=== PATIENT | male | born 1955 | race Caucasian/White ===

== ENCOUNTER 2018-04-12 19:42 | Inpatient (IN) | payer MEDICARE, MEDICAID ==
[2018-04-12 20:14] LABS: % BASOPHILS 0.6 % (0.0-2.0); BASOPHILE ABSOLUTE 0.1 Th/cumm (0-0.2); EOSINOPHILE ABSOLUTE 0.1 Th/cmm (0.1-0.4); LYMPHOCYTE ABSOLUTE 0.7 Th/cmm (1.5-3.0); MONOCYTE ABSOLUTE 0.4 Th/cmm (0.3-1.0); RED BLOOD COUNT 3.07 Mil/cmm (4.30-5.70)
[2018-04-12 20:17] LABS: % LYMPHOCYTES 7.8 % (20.0-50.0); % MONOCYTES 4.3 % (2.0-10.0); % NEUTROPHILS 86.3 % (40.0-80.0); HEMATOCRIT 28.3 % (41.0-60); HEMOGLOBIN 9.4 gm/dL (12-16); MEAN CELL VOLUME 92.2 fl (80-99); MEAN CORPUSCULAR HEMOGLOBIN 30.5 pg (26.0-30.0); MEAN CORPUSCULAR HGB CONC 33.1 pg (28.0-36.0); MEAN PLATELET VOLUME 6.3 fl; NEUTROPHILE ABSOLUTE 8.3 Th/cmm (1.8-8.0); PLATELET COUNT 330 Th/cmm (150-400); RED CELL DISTRIBUTION WIDTH 15.7 % (11.5-20.0); WHITE BLOOD COUNT 9.6 Th/cmm (4.8-10.8)
[2018-04-12 20:29] LABS: ALB/GLOB RATIO 1.2 (1.0-1.8); ALBUMIN 3.7 gm/dL (4.2-5.5); ALKALINE PHOSPHATASE 85 U/L (34-104); ANION GAP 12.4 (7.0-16.0); BILIRUBIN,TOTAL 0.7 mg/dL (0.3-1.0); BUN - UREA NITROGEN 12 mg/dL (7-25); CALCIUM SERUM 9.4 mg/dL (8.6-10.3); CARBON DIOXIDE 28.7 mEq/L (21.0-31.0); CHLORIDE 103 mEq/L (98-107); CREATININE - SERUM 0.6 mg/dL (0.7-1.3); GFR AFRICAN-AMERICAN > 60.0 ml/min (>90); GFR NON AFRICAN-AMERICAN > 60.0 ml/min; GLUCOSE 218 mg/dL (70-105); POTASSIUM SERUM 3.1 mEq/L (3.5-5.1); SGOT 26 U/L (13-39); SGPT/ALT 64 U/L (7-52); SODIUM SERUM 141 mEq/L (136-145); TOTAL PROTEIN,SERUM 6.8 gm/dL (6.0-8.3)
[2018-04-12] MEDS ORDERED: Potassium Chloride 20 mEq ER Tab PO ONE ×2 (20:37→20:39)
[2018-04-12 20:50] LABS: CHOLESTEROL 185 mg/dL (<200); HDL -HIGH DENSITY LIPOPROTEIN 45 mg/dL (23-92); TRIGLYCERIDES 165 mg/dL (<150)
[2018-04-12 22:39] VITALS: BP 124/78
[2018-04-12] MEDS ORDERED: Maalox 30 mL Cup PO PRN (22:41)
[2018-04-12] MEDS ORDERED: Magnesium Hydroxide (MOM) 30 mL UDC PO PRN (22:41)
[2018-04-12] MEDS ORDERED: Acetaminophen 500 MG TAB PO PRN (22:44)
[2018-04-12] MEDS ORDERED: Non-Formulary Item 1 EA (Docusate Sodium [Docusate Sodium] 100 MG) PO SCH (22:45)
[2018-04-12] MEDS: Theophylline 100 mg ER Tab PO SCH (23:45)
[2018-04-13] MEDS: Albuterol/Ipratropium Neb 3 ML AERS HHN SCH ×4 (01:06→19:19)
--- NOTE | 2018-04-13 02:28 | ED Physician Chart ---
ED Chief Complaint/HPI - Patient Information Date Seen:: 04/12/18 Time Seen:: 19:45 Chief Complaint:: Agitation History of Present Illness:: onset x 2 days of agitation and aggressive behavior; no report of trauma, H/As, SIs, S/T, neck pain, C/P, SOB, Abd. Pain, A/N/V/D/C, fever, chills, or urinary s /s Allergies:: Allergies Allergy/AdvReac Type Severity Reaction Status Date / Time morphine Allergy Verified 04/12/18 19:45 Penicillins [PCN] Allergy Verified 04/12/18 19:45 Vitals:: Vital Signs - 8 hr 04/12/18 04/12/18 19:45 20:57 Temp 97.7 F 98.3 F HR 85 89 RR 15 18 BP 133/80 127/65 O2 Sat % 93 94 Historian:: Patient, EMS Review:: Nurse's Note Reviewed, Old Chart Reviewed, EMS run form Reviewed ED Review of Systems - Review of Systems General/Constitutional: No fever, No chills, No weight loss, No weakness, No diaphoresis, No edema, No loss of appetite Skin: No skin lesions, No rash, No bruising Head: No headache, No light-headedness Eyes: No loss of vision, No pain, No diplopia ENT: No earache, No nasal drainage, No sore throat, No tinnitus Neck: No neck pain, No swelling, No thyromegaly, No stiffness, No mass noted Cardio Vascular: No chest pain, No palpitations, No PND, No orthopnea, No edema Pulmonary: SOB, No cough, No sputum, Wheezing GI: No nausea, No vomiting, No diarrhea, No pain, No melena, No hematochezia, No constipation, No hematemesis G/U: No dysuria, No frequency, No hematuria, No nacturia Musculoskeletal: No bone or joint pain, No back pain, No muscle pain Endocrine: No polyuria, No polydipsia Psychiatric: Prior psych history, Depression, Anxiety, No suicidal ideation, No homicidal ideation, No auditory hallucination, No visual hallucination Hematopoietic: No bruising, No lymphadenopathy Allergic/Immuno: No urticaria, No angioedema Neurological: No syncope, No focal symptoms, No weakness, No paresthesia, No headache, No seizure, No dizziness, No confusion, No vertigo ED Past Medical History - Past Medical History Obtainable: Yes Past Medical History: HTN, DM, Asthma/COPD, DVT/PE, Dyslipidemia, Thyroid disorder Family History: HTN Social History: Non Smoker, No Alcohol, No Drug Use, Single, Care Facility Surgical History: None Psychiatricy History: Depression, Bipolar Medication: Reviewed Family Medical History - Family Member Mother History Unknown: Yes ED Physical Exam - Physical Examination General/Constitutional: Awake, Well-developed, well-nourished, Alert, No distress, GCS 15, Non-toxic appearing, Ambulatory Head: Atraumatic Eyes: Lids, conjuctiva normal, PERRL, EOMI Skin: Nl inspection, No rash, No skin lesions, No ecchymosis, Well hydrated, No lymphadenopathy ENMT: External ears, nose nl, TM canals nl, Nasal exam nl, Lips, teeth, gums nl , Oropharynx nl, Tonsils nl Neck: Nontender, Full ROM w/o pain, No JVD, No nuchal rigidity, No bruit, No mass, No stridor Respiratory: Nl effort/Exclusion, Clear to Auscultation, No Wheeze/Rhonchi/Rales Cardio Vascular: RRR, No murmur, gallop, rubs, NL S1 S2, Carotid/Femoral/Distal pulses equal bilaterally GI: No tenderness/rebounding/guarding, No organomegaly, No hernia, Normal BS's, Nondistended, No mass/bruits, No McBurney tenderness : No CVA tenderness Extremities: No tenderness or effusion, Full ROM, normal strength in all extremities, No edema, Normal digits & nails Neuro/Psych: Alert/oriented, DTR's symmetric, Normal sensory exam, Normal motor strength, Judgement/insight normal, Mood normal, Normal gait, No focal deficits Other Neuro/Psych comments:: + Psychomotor Agitation; no SIs; Mood/Affect: Labile Misc: Normal back, No paraspinal tenderness ED Labs/Radiology/EKG Results - Lab Results Results: Laboratory Tests 04/12/18 04/12/18 04/12/18 20:05 20:05 20:05 WBC 9.6 RBC 3.07 L Hgb 9.4 L Hct 28.3 L MCV 92.2 MCH 30.5 H MCHC Differential 33.1 RDW 15.7 Plt Count 330 MPV 6.3 Neutrophils % 86.3 H Lymphocytes % 7.8 L Monocytes % 4.3 Eosinophils % 1.0 Basophils % 0.6 Sodium 141 Potassium 3.1 L Chloride 103 Carbon Dioxide 28.7 Anion Gap 12.4 BUN 12 Creatinine 0.6 L Est GFR ( Amer) > 60.0 Est GFR (Non-Af Amer) > 60.0 BUN/Creatinine Ratio 20.0 Glucose 218 H Calcium 9.4 Total Bilirubin 0.7 AST 26 ALT 64 H Alkaline Phosphatase 85 Total Protein 6.8 Albumin 3.7 L Globulin 3.1 Albumin/Globulin Ratio 1.2 Triglycerides Cholesterol LDL Cholesterol Direct HDL Cholesterol TSH 6.62 H 04/12/18 20:05 WBC RBC Hgb Hct MCV MCH MCHC Differential RDW Plt Count MPV Neutrophils % Lymphocytes % Monocytes % Eosinophils % Basophils % Sodium Potassium Chloride Carbon Dioxide Anion Gap BUN Creatinine Est GFR ( Amer) Est GFR (Non-Af Amer) BUN/Creatinine Ratio Glucose Calcium Total Bilirubin AST ALT Alkaline Phosphatase Total Protein Albumin Globulin Albumin/Globulin Ratio Triglycerides 165 H Cholesterol 185 LDL Cholesterol Direct 111 HDL Cholesterol 45 TSH Comments:: Reviewed - EKG Interpretations EKG Time:: 20:11 Rate & Rhythm: 80; NSR Comments:: non-specific st-t changes ED Septic Shock - . Is Septic Shock (SBP<90, OR Lactate>4 mmol\L) present?: No - <6hrs of presentation: Vital Signs: Vital Signs - 8 hr 04/12/18 04/12/18 19:45 20:57 Temp 97.7 F 98.3 F HR 85 89 RR 15 18 BP 133/80 127/65 O2 Sat % 93 94 ED Reassessment (Disposition) - Reassessment Reassessment Condition:: Improved - Diagnosis Diagnosis:: Agitation; Medical Clearance; Hypokalemia; Bipolar Disorder - Aftercare/Follow up Instructions Aftercare/Follow-Up Instructions:: Counseled pt regarding lab results/diagnosis & need follow up, Counseled pt & family regarding lab results/diagnosis & need follow up - Patient Disposition Discharge/Transfer:: Acute Care w/in this hosp Admitted to:: [facility] Condition at Disposition:: Stable, Improved
[2018-04-13] MEDS: INSULIN ASPART SLIDING SCALE 100 UNITS/ML UNIT SUBQ SCH ×4 (06:38→22:00)
[2018-04-13] MEDS: Levothyroxine 0.075 Mg Tab PO SCH (06:49)
[2018-04-13] MEDS: Budesonide 0.5 Mg/2 mL Ud HHN SCH ×3 (07:01→19:34)
[2018-04-13] MEDS ORDERED: INSULIN ASPART, RECOMBINANT 100 UNITS/ML SUBQ SCH (07:30)
--- NOTE | 2018-04-13 08:42 | Diagnostic Imaging Report ---
CHEST X-RAY: AP view INDICATION: Shortness of breath COMPARISON: None FINDINGS: Exam is limited due to positioning. There is accentuation of the interstitial lung markings. There is no focal consolidation or pleural effusions . There may have been postsurgical changes of the right hilar region. Mild cardiomegaly is noted. Degenerative changes of the spine are noted. There is postsurgical changes of the distal left clavicle. IMPRESSION: Accentuation of the interstitial lung markings, no focal consolidation identified. Mild cardiomegaly. Possible postsurgical changes of the right hilar region, correlate clinically.
[2018-04-13] MEDS ORDERED: HYDROCORTISONE 25 MG PO SCH (09:00)
[2018-04-13] MEDS ORDERED: Insulin Detemir 100 units/mL 10mL Vial SUBQ SCH (09:00)
[2018-04-13] MEDS: Insulin Detemir 100 units/mL 10mL Vial SUBQ SCH (09:08)
[2018-04-13] MEDS: Multivitamin Tab PO SCH (09:14)
[2018-04-13] MEDS: Theophylline 100 mg ER Tab PO SCH ×2 (11:16→22:49)
[2018-04-13] MEDS: Non-Formulary Item 1 EA (Apixaban [Eliquis] 5 MG) PO SCH ×2 (11:47→17:43)
--- NOTE | 2018-04-13 13:49 | History & Physical ---
ADMIT DATE: 04/13/2018 PATIENT'S IDENTIFICATION: A 62-year-old male. CHIEF COMPLAINT: "Who are you." HISTORY OF PRESENT ILLNESS: A 62-year-old male transferred from [facility] for further care for his underlying psychotic illness. The patient has complex medical problems, which include diabetes mellitus, chronic pain syndrome, chronic back injury, which required T10-T11 laminectomy. Post procedure, the patient had complicated course, which required acute care followed by a long-term acute care hospitalization. During the stay at the [facility], the patient was noted to have significant amount of altered mental status and behavioral disorder. The patient was also noted to have hypothyroidism with myxedema coma where the patient was appropriately treated and the patient was followed by the behavioral consultant and it was noted that the [facility] The patient is transferred yesterday. PAST MEDICAL HISTORY: Remarkable for: 1. Diabetes. 2. Hypertension. 3. Obesity. 4. Obstructive sleep apnea. 5. Chronic pain syndrome. 6. Hypothyroidism. 7. DJD. 8. Status post T10-T11 laminectomy. MEDICATIONS AT HOME: At home, Tylenol, Maalox, DuoNeb nebulizer, Pulmicort, Colace, Cortef, sliding scale insulin, Levemir, levothyroxine, lorazepam, milk of magnesia, multivitamin, Seroquel, Randy-Dur, tramadol, Ambien. ALLERGIES: The patient is allergic to MORPHINE and PENICILLIN. SOCIAL HISTORY: Prior to this hospitalization, he was living with his mother. The patient has a remote history of smoking cigarette, but no alcohol or drug use. FAMILY HISTORY: Remarkable for psychotic disorder, diabetes, and hypertension. REVIEW OF SYSTEMS: I am unable to get meaningful history from the patient at this time. PHYSICAL EXAMINATION: GENERAL: The patient is alert, awake, follows command, lying in the bed without any acute distress. VITAL SIGNS: Temperature 97.2, pulse 79, respiratory rate 18, blood pressure 149/80. HEENT: Normocephalic, atraumatic. Extraocular muscles are intact. Tongue was pink and coated. Poor dentition noted. No oral lesion. No exudate. No sinus tenderness. NECK: Supple, no JVD, no hepatojugular reflex. No lymphadenopathy, thyromegaly, or carotid bruit. HEART: Both heart sounds are regular. No S3, no S4. CHEST AND LUNGS: Equal in expansion, no expiratory wheezing. ABDOMEN: Soft, no guarding, no rigidity. Liver and spleen are palpable. No palpable mass. EXTREMITIES: No edema, no cyanosis. Peripheral pulses +2. No calf tenderness. NEUROLOGIC: Alert, awake, follows command. No facial asymmetry. Decreased power throughout the upper and lower extremity. BACK: Unremarkable. A well-healed surgical scar on the lumbar area noted. AVAILABLE DIAGNOSTIC DATA: Has been reviewed. CLINICAL IMPRESSIONS: 1. Psychotic disorder. 2. Hypothyroidism. 3. Diabetes mellitus. 4. Obesity. 5. Chronic pain syndrome. 6. Degenerative joint disease. 7. Debility. 8. Anemia of inflammation. 9. High risk for fall. PLAN: Psychotic evaluation and management deferred to psychiatrist. The patient's heart rate is around 80. I will discontinue Randy-Dur for now. Continue to provide other medication as patient was receiving for underlying problem. Gradually, we will wean off the patient's Cortef as well. I do not see any indications for continuation of the long-term Cortef. Monitor the blood sugar along with other medication as patient receiving, sliding scale insulin as well, fall precaution as well, have followup with Neurology and wire drawing machine tender as well since the patient was followed by them at [facility] as well. We will continue to follow this patient during the stay in the hospital. JOB# [id number]
--- NOTE | 2018-04-13 23:19 | Progress Notes ---
DATE: 04/13/2018 SUBJECTIVE: The patient is currently in the hospital. Psychogenic polydipsia, voices. The patient with ongoing voices, psychotic symptoms, mostly keeps himself, suspicious, paranoid, calm, quiet, notes the voices are ongoing, ongoing concerns about impulsivity, concerns that he may continue to drink copious amounts of water, placing himself at risk. Tolerant to treatment thus far. Currently on Risperdal 3 mg daily and Wellbutrin as well. ASSESSMENT: The patient with ongoing psychotic symptoms, voices, concerns regarding his impulse control. PLAN: We will continue to monitor. I will be increasing his dosing of Risperdal today. Medications were reviewed including dosages and frequencies. JOB# [id number]
[2018-04-14] MEDS: Albuterol/Ipratropium Neb 3 ML AERS HHN SCH ×4 (00:12→21:53)
[2018-04-14] MEDS: INSULIN ASPART SLIDING SCALE 100 UNITS/ML UNIT SUBQ SCH ×4 (06:30→21:21)
[2018-04-14] MEDS: Levothyroxine 0.075 Mg Tab PO SCH (06:46)
[2018-04-14] MEDS: Budesonide 0.5 Mg/2 mL Ud HHN SCH ×2 (06:49→21:53)
--- NOTE | 2018-04-14 07:14 | Psychiatric Evaluation ---
DATE OF SERVICE: 04/13/2018 HISTORY OF PRESENT ILLNESS: A 62-year-old male well known to this clinician, sent by this clinician from [facility] in the [facility] due to progressive agitation and need for restraints, aggressive behaviors, could not be controlled at that particular setting. On [id number], the patient is AO to name only. He believes he is in [place]. He believes the year is 1940 or something, does not know the month. Very poor historian, not answering most questions. Mood "okay." Calm currently. PAST PSYCHIATRIC HISTORY: Depression. Concerns for mood disorder. FAMILY HISTORY: Noncontributory. MEDICAL PROBLEMS: Noted hypertension, asthma, COPD, diabetes, DVT, dyslipidemia, thyroid disorder. SOCIAL HISTORY: The patient states he was born in [place], not currently . Unclear if he has any children. No current alcohol, drugs or tobacco. MEDICATIONS: Noted including dosages and frequencies. MENTAL STATUS EXAMINATION: Stated age, unkempt. Very poor historian. Mood "okay." Poorly oriented, no overt SI or HI, unclear psychotic symptoms, very poor impulse control and poor insight and judgment. PROVISIONAL DIAGNOSES: Mood, unspecified; anxiety, unspecified; psychosis, unspecified; strong rule out bipolar affective disorder; concerns about chronic encephalopathy versus possible dementia process. Under medical please see full H and P. ESTIMATED LENGTH OF STAY: 7-10 days. ASSESSMENT: The patient is currently in the hospital, could not be cared for at a lower level of care, symptomatic, agitated, requiring restraints. PLAN: We will continue to monitor, titrate and adjust medications. I will be increasing his dosing of Seroquel. JOB# [id number]
[2018-04-14] MEDS: Multivitamin Tab PO SCH (10:03)
[2018-04-14] MEDS: Insulin Detemir 100 units/mL 10mL Vial SUBQ SCH (11:06)
[2018-04-14] MEDS: Theophylline 100 mg ER Tab PO SCH ×2 (14:07→22:34)
[2018-04-14] MEDS: Docusate Sodium 100 mg/10 mL UD PO SCH (16:15)
--- NOTE | 2018-04-14 23:21 | Progress Notes ---
DATE: 04/14/2018 SUBJECTIVE: The patient in the hospital, disrobing, making himself naked, stating "she is houses away, she is 2 houses away," not making any sense, crying, yelling for mom. Staff noting they are having a hard time controlling him, ongoing behavioral disturbances. The patient is confused on exam, disoriented, disengage. Medications were noted. ASSESSMENT: The patient remains symptomatic, bizarre, psychotic, confused, and behavioral disturbances. PLAN: I will be increasing his dosing of Seroquel at this time. Given ongoing symptoms, he is not safe for a lower level of care given the severity of his current symptoms. [facility]# [id number]
[2018-04-15] MEDS: Albuterol/Ipratropium Neb 3 ML AERS HHN SCH ×4 (01:35→19:21)
[2018-04-15] MEDS: Levothyroxine 0.075 Mg Tab PO SCH (06:40)
[2018-04-15] MEDS: INSULIN ASPART SLIDING SCALE 100 UNITS/ML UNIT SUBQ SCH ×4 (06:46→22:30)
--- NOTE | 2018-04-15 08:50 | Progress Notes ---
DATE: IDENTIFICATION: A 62-year-old male. SUBJECTIVE: The patient seen and examined. The patient is currently lying in the bed. No new event. MRSA isolation is negative. Blood sugars are under acceptable range. The patient is cooperative. PHYSICAL EXAMINATION: VITAL SIGNS: Temperature 97.8, pulse 99, respiratory rate is 20, blood pressure 134/85. HEENT: No facial asymmetry. NECK: Supple, no JVD. HEART: Regular. CHEST AND LUNGS: Equal in expansion with no expiratory wheezing. ABDOMEN: Soft. No guarding or rigidity. Bowel sounds present. No palpable mass. EXTREMITIES: No edema. CLINICAL IMPRESSION: 1. Psychotic disorder. 2. Hypothyroidism. 3. Diabetes. 4. Obesity. 5. Chronic pain. 6. Degenerative joint disease. 7. Debility. 8. Status post extubation. 9. Anemia of inflammation. 10. High risk for fall. 11. Pulmonary embolism by V/Q scan. PLAN: 1. Monitor blood sugar. 2. Blood pressure. 3. Anticoagulation therapy. 4. Pain management. 5. Synthroid. 6. General nursing care. 7. Follow lab. 8. Follow consult recommendation. 9. Care plan reviewed and discussed with staff. JOB# [id number]
[2018-04-15] MEDS: Budesonide 0.5 Mg/2 mL Ud HHN SCH ×2 (08:54→19:21)
[2018-04-15] MEDS: Multivitamin Tab PO SCH ×2 (08:57→09:13)
[2018-04-15] MEDS: Docusate Sodium 100 mg/10 mL UD PO SCH ×3 (08:57→16:12)
[2018-04-15] MEDS: Theophylline 100 mg ER Tab PO SCH ×3 (09:03→22:46)
[2018-04-15] MEDS: Insulin Detemir 100 units/mL 10mL Vial SUBQ SCH (09:14)
--- NOTE | 2018-04-15 18:28 | Progress Notes ---
DATE: 04/15/2018 The patient remains unruly, still symptomatic, disrobing, doing on things, seems to be tolerating Seroquel, very confused, disoriented. Staff noting that he still yells calling for his mom, irritable, still with ongoing symptoms, very confused. ASSESSMENT: The patient is confused, disoriented, calling out for his mother, trying to disrobe, not safe for a lower level of care. PLAN: We will continue to monitor. Given recent dose increase of Seroquel, will continue at current dosing. JOB# [id number]
[2018-04-16] MEDS: Albuterol/Ipratropium Neb 3 ML AERS HHN SCH ×4 (00:54→19:37)
[2018-04-16] MEDS: Levothyroxine 0.075 Mg Tab PO SCH (06:44)
[2018-04-16] MEDS: Multivitamin Tab PO SCH (09:24)
[2018-04-16] MEDS: Docusate Sodium 100 mg/10 mL UD PO SCH ×2 (09:25→17:21)
[2018-04-16] MEDS: Budesonide 0.5 Mg/2 mL Ud HHN SCH ×2 (09:36→21:01)
[2018-04-16] MEDS: Theophylline 100 mg ER Tab PO SCH ×2 (12:04→22:23)
[2018-04-16] MEDS: Insulin Detemir 100 units/mL 10mL Vial SUBQ SCH (12:04)
[2018-04-16] MEDS: INSULIN ASPART SLIDING SCALE 100 UNITS/ML UNIT SUBQ SCH ×3 (12:04→21:15)
--- NOTE | 2018-04-16 21:22 | Progress Notes ---
DATE: 04/16/2018 SUBJECTIVE: The patient is currently in the hospital, yelling "mom, mom, mom." Asking for cigarettes, does not know where he is or what is going on. Very disoriented, confused. Still at times disrobing, needing a higher level of prompting, redirection, intermittently wakes up at night, calling out different names. ASSESSMENT: The patient is confused, disoriented, not making any sense, still unruly. PLAN: Medications were noted. I will be increasing his dosing of Seroquel today. Still not able to be cared for at a lower level of care given his ongoing and severe symptoms. JOB# [id number]
[2018-04-17] MEDS: Albuterol/Ipratropium Neb 3 ML AERS HHN SCH ×4 (01:19→19:14)
[2018-04-17] MEDS: Budesonide 0.5 Mg/2 mL Ud HHN SCH ×2 (06:27→19:14)
[2018-04-17] MEDS: Levothyroxine 0.075 Mg Tab PO SCH (06:32)
[2018-04-17] MEDS: INSULIN ASPART SLIDING SCALE 100 UNITS/ML UNIT SUBQ SCH ×4 (06:34→21:00)
[2018-04-17] MEDS: Multivitamin Tab PO SCH (08:50)
[2018-04-17] MEDS: Docusate Sodium 100 mg/10 mL UD PO SCH ×2 (08:52→17:16)
[2018-04-17] MEDS: Insulin Detemir 100 units/mL 10mL Vial SUBQ SCH (08:53)
--- NOTE | 2018-04-17 09:50 | Progress Notes ---
DATE: PATIENT'S IDENTIFICATION: A 62-year-old male. SUBJECTIVE: The patient seen and examined. The patient is compliant with his medication. The patient resting comfortably, easy to awake. The patient gets confused at time. The patient denies any chest pain or increasing shortness of breath or palpitation. PHYSICAL EXAMINATION: VITAL SIGNS: On today's exam, temperature 98.6, pulse 95, respiratory rate is 14, blood pressure 116/69. HEENT: No facial asymmetry. NECK: Supple, no JVD. HEART: Regular. CHEST AND LUNGS: Equal in expansion, no expiratory wheezing. ABDOMEN: Soft. No guarding or rigidity. Bowel sounds present. No palpable mass. EXTREMITIES: No edema. CLINICAL IMPRESSION: 1. Psychotic disorder. 2. Diabetes. 3. Hypothyroidism. 4. Degenerative joint disease. 5. Status post T10-T11 laminectomy. 6. Bronchospasm, better. 7. Debility. 8. Decline in self-care. PLAN: 1. Cut down the Cortef dose. 2. Continue Synthroid. 3. Monitor blood sugar and blood pressure. 4. General nursing care. 5. Nutritional support. 6. Follow lab. 7. Fall precaution. 8. Care plan reviewed and discussed with staff. JOB# [id number]
[2018-04-17] MEDS: Theophylline 100 mg ER Tab PO SCH ×2 (10:46→23:00)
--- NOTE | 2018-04-17 18:30 | Progress Notes ---
DATE: 04/17/2018 SUBJECTIVE: The patient seen, chart reviewed, discussed with staff. The patient remains unruly, some resistance to care, sometimes tries to be low, he yells out "mom, mom, mom." Very confused, disoriented disengaged, fair sleep, special forces specialist awakenings, requiring prompting, redirections, very disoriented. Medications were noted. ASSESSMENT: The patient remains symptomatic, ongoing symptoms, disorientation. PLAN: We will continue to monitor. Consider titration of Seroquel. We will continue inpatient management. JOB# [id number]
[2018-04-18] MEDS: Albuterol/Ipratropium Neb 3 ML AERS HHN SCH ×4 (01:46→18:57)
[2018-04-18] MEDS: Albuterol/Ipratropium Neb 3 ML AERS HHN PRN (05:19)
[2018-04-18] MEDS: Levothyroxine 0.075 Mg Tab PO SCH (06:32)
[2018-04-18] MEDS: INSULIN ASPART SLIDING SCALE 100 UNITS/ML UNIT SUBQ SCH ×4 (06:33→20:22)
[2018-04-18] MEDS: Budesonide 0.5 Mg/2 mL Ud HHN SCH ×2 (07:15→18:57)
[2018-04-18] MEDS: Docusate Sodium 100 mg/10 mL UD PO SCH ×2 (09:29→17:08)
[2018-04-18] MEDS: Insulin Detemir 100 units/mL 10mL Vial SUBQ SCH (09:36)
[2018-04-18] MEDS: Multivitamin Tab PO SCH (09:59)
--- NOTE | 2018-04-18 15:39 | Progress Notes ---
DATE: IDENTIFICATION: A 62-year-old male. SUBJECTIVE: The patient seen and examined. The patient lying in the bed. Still having agitation at times. The patient is taking all his medication. The patient currently does provide a meaningful history. PHYSICAL EXAMINATION: VITAL SIGNS: Temperature 98.3, pulse 92, respiratory rate 18, and blood pressure 124/78. HEENT: No facial asymmetry. NECK: Supple, no JVD. HEART: Regular. CHEST AND LUNGS: Equal in expansion, no expiratory wheezing. ABDOMEN: Soft. EXTREMITIES: No edema. CLINICAL IMPRESSION: 1. Hypothyroidism. 2. Diabetes. 3. Psychotic disorder. 4. Degenerative joint disease. 5. Status post T10-T11 laminectomy. 6. History of pulmonary embolism. PLAN: The patient at this time to get followup lab. Monitor blood sugar and blood pressures. Continue other medication as prescribed. The patient is currently on Randy-Dur, we will discontinue it considering the patient's heart rates are within normal limit. The patient will have followup TSH as well. Psychotic evaluation and management deferred to psychiatrist. We will continue to follow this patient during the stay at the [facility]. JOB# [id number]
--- NOTE | 2018-04-18 23:16 | Progress Notes ---
DATE: 04/18/2018 SUBJECTIVE: The patient is still yelling, screaming, calling everyone his mother, in a Shayla chair, bizarre, not making any sense, very confused. Apparently, daughter may be a temporary conservator. The patient too confused, disoriented, has no idea what is going on. ASSESSMENT: The patient unruly, unpredictable, yelling out mom, mom, mom and trying to get out of Shayla chair. PLAN: We will continue to monitor. Medications were noted. I will be increasing dosing of Seroquel today. JOB# [id number]
[2018-04-19] MEDS: Albuterol/Ipratropium Neb 3 ML AERS HHN SCH ×4 (00:47→19:42)
[2018-04-19] MEDS: Levothyroxine 0.075 Mg Tab PO SCH (06:34)
[2018-04-19] MEDS: INSULIN ASPART SLIDING SCALE 100 UNITS/ML UNIT SUBQ SCH ×4 (06:35→20:55)
[2018-04-19] MEDS: Budesonide 0.5 Mg/2 mL Ud HHN SCH ×2 (08:02→19:58)
[2018-04-19 08:48] LABS: % EOSINOPHILS 2.5 % (0.0-5.0); % LYMPHOCYTES 25.4 % (20.0-50.0); % MONOCYTES 5.3 % (2.0-10.0); % NEUTROPHILS 66.8 % (40.0-80.0); EOSINOPHILE ABSOLUTE 0.2 Th/cmm (0.1-0.4); HEMATOCRIT 32.3 % (41.0-60); HEMOGLOBIN 11.1 gm/dL (12-16); LYMPHOCYTE ABSOLUTE 1.5 Th/cmm (1.5-3.0); MEAN CELL VOLUME 92.7 fl (80-99); MEAN CORPUSCULAR HEMOGLOBIN 31.9 pg (26.0-30.0); MEAN CORPUSCULAR HGB CONC 34.4 pg (28.0-36.0); MEAN PLATELET VOLUME 7.2 fl; MONOCYTE ABSOLUTE 0.3 Th/cmm (0.3-1.0); NEUTROPHILE ABSOLUTE 4.1 Th/cmm (1.8-8.0); PLATELET COUNT 342 Th/cmm (150-400); RED BLOOD COUNT 3.48 Mil/cmm (4.30-5.70); RED CELL DISTRIBUTION WIDTH 16.3 % (11.5-20.0); WHITE BLOOD COUNT 6.1 Th/cmm (4.8-10.8)
[2018-04-19 09:00] LABS: ALB/GLOB RATIO 1.2 (1.0-1.8); ALBUMIN 4.1 gm/dL (4.2-5.5); ALKALINE PHOSPHATASE 73 U/L (34-104); ANION GAP 11.8 (7.0-16.0); BUN - UREA NITROGEN 14 mg/dL (7-25); CALCIUM SERUM 10.1 mg/dL (8.6-10.3); CARBON DIOXIDE 30.2 mEq/L (21.0-31.0); CHLORIDE 104 mEq/L (98-107); CREATININE - SERUM 0.6 mg/dL (0.7-1.3); GFR AFRICAN-AMERICAN > 60.0 ml/min (>90); GFR NON AFRICAN-AMERICAN > 60.0 ml/min; GLUCOSE 134 mg/dL (70-105); SGOT 14 U/L (13-39); SGPT/ALT 32 U/L (7-52); SODIUM SERUM 143 mEq/L (136-145); TOTAL PROTEIN,SERUM 7.5 gm/dL (6.0-8.3)
[2018-04-19] MEDS: Insulin Detemir 100 units/mL 10mL Vial SUBQ SCH (09:14)
[2018-04-19] MEDS: Multivitamin Tab PO SCH (09:17)
[2018-04-19] MEDS: Docusate Sodium 100 mg/10 mL UD PO SCH ×2 (09:19→17:52)
[2018-04-19] MEDS ORDERED: Potassium Chloride 20 mEq ER Tab PO ONE (11:12)
--- NOTE | 2018-04-19 21:52 | Progress Notes ---
DATE: 04/19/2018 The patient claiming that nurses are ____ can be yelling, screaming, trying to disrobe, in a Shayla chair, very unruly, argumentative, difficult to redirect him. The patient highly impulsive, highly unpredictable taking his medications, tolerant to medications thus far. ASSESSMENT: The patient remains symptomatic, unruly, highly impulsive, highly unpredictable. PLAN: We will continue to monitor, titrate and adjust medications. The patient is not safe for a lower level of care at this time. JOB# [id number]
[2018-04-20] MEDS: Albuterol/Ipratropium Neb 3 ML AERS HHN SCH ×4 (01:55→19:39)
[2018-04-20] MEDS: INSULIN ASPART SLIDING SCALE 100 UNITS/ML UNIT SUBQ SCH ×5 (06:30→21:20)
[2018-04-20] MEDS: Levothyroxine 0.075 Mg Tab PO SCH (06:31)
[2018-04-20] MEDS: Budesonide 0.5 Mg/2 mL Ud HHN SCH ×2 (06:46→19:54)
[2018-04-20] MEDS: Multivitamin Tab PO SCH (08:53)
[2018-04-20] MEDS: Insulin Detemir 100 units/mL 10mL Vial SUBQ SCH (10:35)
[2018-04-20] MEDS: Docusate Sodium 100 mg/10 mL UD PO SCH ×2 (12:37→18:33)
--- NOTE | 2018-04-20 23:22 | Progress Notes ---
DATE: SUBJECTIVE: The patient seen, chart reviewed, discussed with staff, yelling, screaming, agitated in the Shayla chair, very confused. Staff noting he has been difficult to redirect, difficult to control, highly unruly. He is taking his medications. No overt side effects. ASSESSMENT: The patient remains symptomatic, ongoing behaviors, unruly, difficult to control and redirect, confused, disoriented, screaming for his mother. We will adjust medications. Add Depakote as well. JOB# [id number]
--- NOTE | 2018-04-20 23:32 | Progress Notes ---
DATE: 04/20/2018 IDENTIFICATION: A 62-year-old male. SUBJECTIVE: The patient seen and examined. The patient is lying in the bed. The patient is alert, awake, getting confused and get agitated at the time. The patient did receive potassium of 40 yesterday. PHYSICAL EXAMINATION: VITAL SIGNS: Temperature 97.8, pulse is 80, respiratory rate is 18, blood pressure is 136/74. HEENT: No facial asymmetry. NECK: Supple, no JVD. HEART: Regular. CHEST: Lung equal in expansion, no expiratory wheezing. ABDOMEN: Soft, no guarding or rigidity. Liver, spleen palpable. No palpable mass. EXTREMITIES: No edema. NEUROLOGIC: Alert, awake, follows command. AVAILABLE LABORATORY DATA: TSH is elevated. CLINICAL IMPRESSION: 1. Hypothyroidism. 2. Pulmonary embolism. 3. Psychotic disorder. 4. Diabetes mellitus. 5. Hypertension. 6. Degenerative joint disease. 7. Debility. 8. Status post T10-T11 laminectomy. PLAN: 1. Increased Synthroid 175 mcg. 2. Follow up lab. 3. Monitor blood sugar and blood placement. 4. Psych medication. 5. Psych followup. 6. General nursing care. 7. Follow lab. 8. Fall precautions. 9. PT, OT. 10. Care plan reviewed and discussed. JOB# [id number]
[2018-04-21] MEDS: Albuterol/Ipratropium Neb 3 ML AERS HHN SCH ×4 (01:11→19:27)
[2018-04-21 06:30] LABS: % BASOPHILS 0.5 % (0.0-2.0); % EOSINOPHILS 4.2 % (0.0-5.0); % LYMPHOCYTES 29.4 % (20.0-50.0); % MONOCYTES 7.6 % (2.0-10.0); % NEUTROPHILS 58.3 % (40.0-80.0); EOSINOPHILE ABSOLUTE 0.2 Th/cmm (0.1-0.4); HEMATOCRIT 30.6 % (41.0-60); HEMOGLOBIN 10.2 gm/dL (12-16); LYMPHOCYTE ABSOLUTE 1.3 Th/cmm (1.5-3.0); MEAN CELL VOLUME 93.6 fl (80-99); MEAN CORPUSCULAR HEMOGLOBIN 31.1 pg (26.0-30.0); MEAN CORPUSCULAR HGB CONC 33.2 pg (28.0-36.0); MEAN PLATELET VOLUME 6.8 fl; MONOCYTE ABSOLUTE 0.3 Th/cmm (0.3-1.0); NEUTROPHILE ABSOLUTE 2.7 Th/cmm (1.8-8.0); PLATELET COUNT 302 Th/cmm (150-400); RED BLOOD COUNT 3.27 Mil/cmm (4.30-5.70); RED CELL DISTRIBUTION WIDTH 16.7 % (11.5-20.0); WHITE BLOOD COUNT 4.5 Th/cmm (4.8-10.8)
[2018-04-21] MEDS: INSULIN ASPART SLIDING SCALE 100 UNITS/ML UNIT SUBQ SCH ×4 (06:35→20:31)
--- NOTE | 2018-04-21 06:45 | Progress Notes ---
DATE: 04/21/2018 SUBJECTIVE: The patient seen, chart reviewed, discussed with staff. The patient was seen today 04/21/2018. Still yelling, screaming, calling out for his mom, asking me to bring him 2 cups of coffee, very hard to redirect, this a lot at times needs to be in a Shayla chair due to unruly behavior, is difficult to redirect, very confused, disoriented. ASSESSMENT: The patient remains symptomatic, unruly, difficult to redirect, unable to be cared for at a lower level of care given his ongoing behaviors. PLAN: We will continue to monitor. I will be titrating his dosing of Seroquel today. JOB# [id number]
[2018-04-21] MEDS: Budesonide 0.5 Mg/2 mL Ud HHN SCH ×2 (07:05→19:27)
[2018-04-21 07:22] LABS: ALB/GLOB RATIO 1.3 (1.0-1.8); ALBUMIN 3.6 gm/dL (4.2-5.5); ALKALINE PHOSPHATASE 71 U/L (34-104); ANION GAP 8.6 (7.0-16.0); BILIRUBIN,TOTAL 0.8 mg/dL (0.3-1.0); BUN - UREA NITROGEN 13 mg/dL (7-25); CALCIUM SERUM 9.3 mg/dL (8.6-10.3); CARBON DIOXIDE 29.7 mEq/L (21.0-31.0); CHLORIDE 107 mEq/L (98-107); CREATININE - SERUM 1.1 mg/dL (0.7-1.3); GFR AFRICAN-AMERICAN > 60.0 ml/min (>90); GFR NON AFRICAN-AMERICAN > 60.0 ml/min; GLUCOSE 98 mg/dL (70-105); MAGNESIUM 2.3 mg/dL (1.9-2.7); POTASSIUM SERUM 3.3 mEq/L (3.5-5.1); SGOT 15 U/L (13-39); SGPT/ALT 23 U/L (7-52); SODIUM SERUM 142 mEq/L (136-145); TOTAL PROTEIN,SERUM 6.4 gm/dL (6.0-8.3)
[2018-04-21] MEDS ORDERED: Levothyroxine 0.1 Mg Tab PO SCH (07:30)
[2018-04-21] MEDS ORDERED: Levothyroxine 0.075 Mg Tab PO SCH (07:30)
[2018-04-21] MEDS: Docusate Sodium 100 mg/10 mL UD PO SCH ×2 (09:03→16:23)
[2018-04-21] MEDS: Multivitamin Tab PO SCH (09:07)
[2018-04-21] MEDS: Insulin Detemir 100 units/mL 10mL Vial SUBQ SCH (09:55)
[2018-04-22] MEDS: Albuterol/Ipratropium Neb 3 ML AERS HHN SCH ×4 (00:45→20:18)
[2018-04-22] MEDS: INSULIN ASPART SLIDING SCALE 100 UNITS/ML UNIT SUBQ SCH ×4 (06:49→21:02)
[2018-04-22] MEDS: Budesonide 0.5 Mg/2 mL Ud HHN SCH ×2 (07:38→20:18)
[2018-04-22] MEDS: Docusate Sodium 100 mg/10 mL UD PO SCH ×2 (08:20→18:07)
[2018-04-22] MEDS: Multivitamin Tab PO SCH (08:21)
[2018-04-22] MEDS: Insulin Detemir 100 units/mL 10mL Vial SUBQ SCH (10:58)
--- NOTE | 2018-04-23 | Progress Notes ---
DATE: 04/22/2018 PATIENT'S ID: A 62-year-old male. SUBJECTIVE: The patient was seen and examined. The patient is lying in the bed. The patient has a period of agitation at times. Otherwise, the patient is eating and cooperative. PHYSICAL EXAMINATION: VITAL SIGNS: Temperature 97.7, pulse 89, respiratory rate 18, and blood pressure 146/54. HEENT: No facial asymmetry. NECK: Supple, no JVD. HEART: Regular. CHEST AND LUNGS: Equal in expansion, no expiratory wheezing. ABDOMEN: Soft. No guarding, no rigidity. Bowel sounds present. No palpable mass. EXTREMITIES: No edema. AVAILABLE DIAGNOSTIC DATA: None for my review. CLINICAL IMPRESSION: 1. Diabetes mellitus. 2. Hypothyroidism. 3. Chronic pain syndrome. 4. Status post T10-T11 laminectomy. 5. Psychotic disorder. 6. Obesity. 7. Decline in self-care and mobility. PLAN: 1. Continue to provide Synthroid. 2. Diabetes management. 3. PT, OT. 4. Psych medication. 5. Psych followup. 6. General nursing care. 7. We will continue to follow this patient during the stay in the hospital. JOB# [id number]
[2018-04-23] MEDS: Albuterol/Ipratropium Neb 3 ML AERS HHN SCH ×4 (00:13→19:01)
[2018-04-23] MEDS: INSULIN ASPART SLIDING SCALE 100 UNITS/ML UNIT SUBQ SCH ×4 (06:41→20:30)
[2018-04-23] MEDS: Budesonide 0.5 Mg/2 mL Ud HHN SCH ×2 (06:44→19:01)
[2018-04-23] MEDS: Multivitamin Tab PO SCH (09:33)
[2018-04-23] MEDS: Insulin Detemir 100 units/mL 10mL Vial SUBQ SCH (09:33)
[2018-04-23] MEDS: Docusate Sodium 100 mg/10 mL UD PO SCH ×2 (09:33→16:40)
--- NOTE | 2018-04-23 09:59 | Progress Notes ---
DATE: SUBJECTIVE: The patient was seen and evaluated. The patient's chart reviewed. Dr. Roa covering for Dr. Baeza. IDENTIFYING DATA: A 62-year-old male who was brought in here from [facility] secondary to progressive agitated, restraints in aggressive behavior that cannot be controlled in particular setting. Today on mtzl-wf-vbst evaluation, the patient continues to perseverate that he has a lot of back pain and also continues to perseverate yelling and screaming that he needs his mother and screaming for his mother that he questions another person that worries his mother and reported he has a lot of pain on his back. Nurses overnight observed that he continues to have a lot of irritability, agitation. Yelling, screaming, and calling out for his mom asking her to bring to cough even though mom does not live here. CURRENT MEDICATIONS: Depakote 125 b.i.d., Colace, Ativan as needed, Seroquel 500 mg a day. ASSESSMENT AND PLAN: A 62-year-old male who continues to be irritable, easily agitated, and demanding his mother to be present, believes that his mother lives in the unit. The patient is 62-year-old male, unable to formulate a safe plan outside of structure environment. We will continue with the current medication regimen as recently adjusted. JOB# [id number]
--- NOTE | 2018-04-23 19:41 | Progress Notes ---
DATE: 04/23/2018 SUBJECTIVE: The patient is seen and evaluated. The patient's chart reviewed. No acute events reported overnight. Covering for Dr. Baeza. Today on wogo-cx-ddaz evaluation, the patient continues to perseverate. He has a lot of back pain concerns to perseverate about his mother being in the unit. MENTAL STATUS EXAMINATION: Continues to be easily agitated, irritable, and needing a lot of redirection. ASSESSMENT AND PLAN: Continues to be irritable, agitated, needing a lot of redirections. We will continue with the recent titration of the Seroquel to target the patient's ongoing impulsive behavior. JOB# [id number]
[2018-04-24] MEDS: Albuterol/Ipratropium Neb 3 ML AERS HHN SCH ×4 (01:01→20:49)
[2018-04-24] MEDS: INSULIN ASPART SLIDING SCALE 100 UNITS/ML UNIT SUBQ SCH ×4 (07:09→20:44)
[2018-04-24] MEDS: Budesonide 0.5 Mg/2 mL Ud HHN SCH ×2 (07:19→20:50)
--- NOTE | 2018-04-24 08:11 | Progress Notes ---
DATE: Covering for Dr. Baeza. Today on qqxl-ww-ieiu evaluation, the patient continues to be easily irritable, agitated. On klus-xi-xsfg evaluation, the patient reported his daughter is trapped in another room, he needs to call and rescue her. ASSESSMENT AND PLAN: The patient is a 62-year-old male who continues to present irritable, agitated and delusional, believing that his daughter is trapped. We will continue with Seroquel 100 mg to target the patient severe disorganized state. JOB# [id number]
[2018-04-24] MEDS: Docusate Sodium 100 mg/10 mL UD PO SCH (09:20)
[2018-04-24] MEDS: Multivitamin Tab PO SCH (09:20)
[2018-04-24] MEDS: Insulin Detemir 100 units/mL 10mL Vial SUBQ SCH (12:06)
--- NOTE | 2018-04-24 12:50 | Progress Notes ---
DATE: PATIENT'S IDENTIFICATION: A 62-year-old male. SUBJECTIVE: The patient is seen and examined. The patient is lying in the bed. The patient has a period of agitation and aggressive behavior. The patient required isolation at times. OBJECTIVE: VITAL SIGNS: Temperature 97.6, pulse is 82, respiratory rate 18, blood pressure 160/85. HEENT: No facial asymmetry. NECK: Supple. No JVD. HEART: Regular. CHEST AND LUNGS: Equal in expansion with no expiratory wheezing. ABDOMEN: Soft. No guarding. No rigidity. Liver and spleen are not palpable. No palpable mass. EXTREMITIES: No edema. NEUROLOGIC: Alert, awake, follows commands. AVAILABLE DIAGNOSTIC DATA: None for my review. CLINICAL IMPRESSIONS: 1. Diabetes mellitus. 2. Hypothyroidism. 3. Psychotic disorder. 4. Obesity. 5. Chronic pain syndrome. 6. High risk for fall. 7. Degenerative joint disease. 8. Status post T10-T11 laminectomy. PLAN: 1. Pain management. 2. Psych medication. 3. Psych followup. 4. Diabetes management. 5. Synthroid. 6. Fall precaution. 7. Nutritional support. 8. We will continue to follow this patient during the stay in the hospital. JOB# [id number]
[2018-04-25] MEDS: Albuterol/Ipratropium Neb 3 ML AERS HHN SCH ×4 (01:45→19:50)
[2018-04-25] MEDS: INSULIN ASPART SLIDING SCALE 100 UNITS/ML UNIT SUBQ SCH ×4 (06:38→20:43)
[2018-04-25] MEDS: Budesonide 0.5 Mg/2 mL Ud HHN SCH (07:40)
[2018-04-25] MEDS: Insulin Detemir 100 units/mL 10mL Vial SUBQ SCH (09:19)
[2018-04-25] MEDS: Docusate Sodium 100 mg/10 mL UD PO SCH ×2 (09:20→17:31)
[2018-04-25] MEDS: Multivitamin Tab PO SCH (09:20)
--- NOTE | 2018-04-25 22:50 | Progress Notes ---
DATE: 04/25/2018 SUBJECTIVE: Chart reviewed and the patient interviewed. Also discussed the patient's condition with the staff and reviewed records and labs. The patient is still forgetful and is still suspicious and confused. The patient is still asking about where in his house and his mother. The patient also still has episodes of yelling and screaming and still has severe mood swings. Otherwise, the patient is compliant with taking his medications with no side effects. ASSESSMENT: The patient is still psychotic and needs close monitoring. TREATMENT PLAN: Continue to monitor his behavior and his condition and continue adjusting psychotropic medications and followup. JOB# [id number]
[2018-04-26] MEDS: Albuterol/Ipratropium Neb 3 ML AERS HHN SCH ×4 (01:00→19:21)
[2018-04-26] MEDS: INSULIN ASPART SLIDING SCALE 100 UNITS/ML UNIT SUBQ SCH ×4 (06:38→21:00)
[2018-04-26] MEDS: Budesonide 0.5 Mg/2 mL Ud HHN SCH ×2 (07:27→19:21)
[2018-04-26] MEDS: Multivitamin Tab PO SCH (09:05)
[2018-04-26] MEDS: Docusate Sodium 100 mg/10 mL UD PO SCH ×2 (09:08→18:00)
[2018-04-26] MEDS: Insulin Detemir 100 units/mL 10mL Vial SUBQ SCH (09:13)
--- NOTE | 2018-04-26 22:22 | Progress Notes ---
DATE: 04/26/2018 SUBJECTIVE: The patient remains loud, forgetful, yelling, screaming, poor impulsivity, poor impulse control, concerns that he may have pseudobulbar affect, given a little efficacy with Seroquel dosing as well as Depakote. The patient is still in a Shayla chair, trying to get up, still yelling "doctor, doctor, doctor, calls for his mom." ASSESSMENT: The patient remains asymptomatic, ongoing concerns about impulsivity, loud, unable to place him in current condition. PLAN: We will continue to monitor. I will be starting Nuedexta, increase dose of Seroquel. JOB# [id number]
[2018-04-27] MEDS: Albuterol/Ipratropium Neb 3 ML AERS HHN SCH ×4 (00:20→18:33)
[2018-04-27] MEDS: INSULIN ASPART SLIDING SCALE 100 UNITS/ML UNIT SUBQ SCH ×4 (07:01→20:46)
[2018-04-27] MEDS: Budesonide 0.5 Mg/2 mL Ud HHN SCH ×2 (07:19→18:44)
[2018-04-27] MEDS: Docusate Sodium 100 mg/10 mL UD PO SCH ×2 (09:01→16:45)
[2018-04-27] MEDS: Dextromethorphan/Quinidine 20mg/10mg Cap PO SCH (09:02)
[2018-04-27] MEDS: Multivitamin Tab PO SCH (09:02)
[2018-04-27] MEDS: Insulin Detemir 100 units/mL 10mL Vial SUBQ SCH (09:11)
--- NOTE | 2018-04-27 15:36 | Progress Notes ---
DATE: IDENTIFICATION: A 62-year-old male. SUBJECTIVE: The patient was seen and examined. OBJECTIVE: GENERAL: The patient is lying in the bed. No new event. VITAL SIGNS: Temperature 98.2, pulse 90, respiratory rate 18, and blood pressure 142/75. HEENT: No facial asymmetry. NECK: Supple, no JVD. HEART: Regular. CHEST: Lung equal in expansion, no expiratory wheezing. ABDOMEN: Soft. No guarding, no rigidity. Bowel sounds are present. No palpable mass. EXTREMITIES: No edema. AVAILABLE DIAGNOSTIC DATA: None for my review. Glucoscan is reviewed. Medication admission record is reviewed. CLINICAL IMPRESSION: 1. Diabetes. 2. Hypothyroidism. 3. Psychotic disorder. 4. Chronic pain. 5. Status post T10-T11 laminectomy. 6. Degenerative joint disease. 7. Obesity. 8. Debility. PLAN: 1. Synthroid 175 mcg. 2. Insulin sliding scale with Levemir insulin. 3. Psych medication. 4. General nursing care. 5. Fall precautions. 6. Nutritional support. 7. Follow lab. 8. Care plan reviewed and discussed with staff. JOB# [id number]
[2018-04-27] MEDS: QUEtiapine Fumarate 100 MG, QUEtiapine Fumarate 75 MG PO SCH (16:46)
--- NOTE | 2018-04-27 17:52 | Progress Notes ---
DATE: 04/27/2018 SUBJECTIVE: The patient remains combative, loud, yelling, still asking for his mom, mom, mom, yelling for his mother, nonsensical. Staff noting mild improvement and it seems the medications may be starting to help, calm him down, be somewhat more redirectable, still requiring a Shayla chair, unable placement at this time because of his behaviors, ____ his behaviors, confusional state. ASSESSMENT: The patient remains loud, agitated, screaming at times, confused, difficult to control his behaviors. I will be increasing his dosing of Seroquel today, good tolerance to Nuedexta thus far. JOB# [id number]
[2018-04-28] MEDS: Albuterol/Ipratropium Neb 3 ML AERS HHN SCH ×4 (01:20→19:03)
[2018-04-28] MEDS: INSULIN ASPART SLIDING SCALE 100 UNITS/ML UNIT SUBQ SCH ×4 (06:33→20:36)
[2018-04-28] MEDS: Budesonide 0.5 Mg/2 mL Ud HHN SCH ×2 (07:21→19:04)
[2018-04-28] MEDS: Docusate Sodium 100 mg/10 mL UD PO SCH ×2 (08:45→16:50)
[2018-04-28] MEDS: Dextromethorphan/Quinidine 20mg/10mg Cap PO SCH (08:45)
[2018-04-28] MEDS: QUEtiapine Fumarate 100 MG, QUEtiapine Fumarate 75 MG PO SCH ×2 (08:46→16:49)
[2018-04-28] MEDS: Multivitamin Tab PO SCH (08:46)
[2018-04-28] MEDS: Insulin Detemir 100 units/mL 10mL Vial SUBQ SCH (08:53)
[2018-04-29] MEDS: INSULIN ASPART SLIDING SCALE 100 UNITS/ML UNIT SUBQ SCH ×4 (06:45→21:14)
[2018-04-29] MEDS: Albuterol/Ipratropium Neb 3 ML AERS HHN SCH ×4 (08:31→19:48)
[2018-04-29] MEDS: Budesonide 0.5 Mg/2 mL Ud HHN SCH ×2 (08:31→19:48)
[2018-04-29] MEDS: Docusate Sodium 100 mg/10 mL UD PO SCH ×2 (08:41→16:14)
[2018-04-29] MEDS: QUEtiapine Fumarate 100 MG, QUEtiapine Fumarate 75 MG PO SCH ×2 (08:42→16:14)
[2018-04-29] MEDS: Multivitamin Tab PO SCH (08:42)
[2018-04-29] MEDS: Dextromethorphan/Quinidine 20mg/10mg Cap PO SCH (08:42)
[2018-04-29] MEDS: Insulin Detemir 100 units/mL 10mL Vial SUBQ SCH (09:03)
--- NOTE | 2018-04-29 12:32 | Progress Notes ---
DATE: 04/28/2018 SUBJECTIVE: A 62-year-old male still yelling, going on for his mom calling this clinician, Bryson, very confused, disoriented, screaming, yelling. Nursing staff noted mild improvement with the medications. We are continuing to titrate currently on dosing of Seroquel and Depakote, little improvement, not as aggressive or agitated, but yelling and screaming ____ a lot of the time and very confused and disoriented. Depakote level at 21.6 as of 04/25/2018. I will be increasing the dose, titrating Seroquel as well. JOB# [id number]
--- NOTE | 2018-04-29 18:46 | Progress Notes ---
DATE: 04/29/2018 The patient is still yelling, screaming, very agitated. Staff noting Ativan did help. The patient remains very unruly, still aggressive, yelling at the top of his lungs, difficult to redirect and control, very confused, currently withdrawn. ASSESSMENT: The patient remains symptomatic, unruly, agitated, very anxious, restless, requiring a near constant staff redirection and prompting. I will continue to monitor the patient closely. I will be continuing SerocesialMichelle. We will add Marilin. JOB# [id number]
[2018-04-30] MEDS: Albuterol/Ipratropium Neb 3 ML AERS HHN SCH ×2 (06:35→18:09)
[2018-04-30] MEDS: Budesonide 0.5 Mg/2 mL Ud HHN SCH ×2 (06:35→18:09)
[2018-04-30] MEDS: INSULIN ASPART SLIDING SCALE 100 UNITS/ML UNIT SUBQ SCH ×4 (06:50→21:14)
--- NOTE | 2018-04-30 07:35 | Progress Notes ---
DATE: 04/30/2018 The patient is still yelling, screaming, very poor sleep. We will be starting Klonopin today. He slept for about 2 hours, needs a higher level of the nurse attention, incontinent, for example, wears a diaper, very confused, does not know where he is, does not know what is going on, very psychotic, thoughts to himself, yells out "Bryson, Bryson, Bryson, mom, mom, mom." ASSESSMENT: Ongoing symptoms, severe symptoms, yelling, screaming, unable to place the patient at this time given his current agitation. PLAN: We will start Klonopin dosing, likely will need to titrate. JOB# [id number]
[2018-04-30] MEDS: Insulin Detemir 100 units/mL 10mL Vial SUBQ SCH (08:53)
[2018-04-30] MEDS: Docusate Sodium 100 mg/10 mL UD PO SCH ×2 (08:54→17:04)
[2018-04-30] MEDS: QUEtiapine Fumarate 100 MG, QUEtiapine Fumarate 75 MG PO SCH ×2 (08:54→17:04)
[2018-04-30] MEDS: Multivitamin Tab PO SCH (08:55)
[2018-04-30] MEDS: Dextromethorphan/Quinidine 20mg/10mg Cap PO SCH (08:55)
[2018-05-01] MEDS: Albuterol/Ipratropium Neb 3 ML AERS HHN SCH ×4 (00:24→19:21)
--- NOTE | 2018-05-01 06:00 | Progress Notes ---
DATE: 04/30/2018 IDENTIFICATION: A 62-year-old male. SUBJECTIVE: The patient seen and examined. The patient is lying in the bed. No new event; still has a fluctuating mental status. OBJECTIVE: VITAL SIGNS: Temperature 97.8, pulse 94, respiratory rate 18, blood pressure is 123/76. Medication admission record is reviewed. HEENT: No facial asymmetry. NECK: Supple, no JVD. HEART: Regular. CHEST AND LUNGS: Equal in expansion, no expiratory wheezing. ABDOMEN: Soft. No guarding or rigidity. Bowel sounds present. No palpable mass. EXTREMITIES: No edema. NEUROLOGIC: Fluctuating mental status noted. CLINICAL IMPRESSION: 1. Diabetes mellitus with low blood sugar. 2. Hypothyroidism. 3. Psychotic disorder. 4. Degenerative joint disease. 5. Status post T10-T11 laminectomy. PLAN: 1. Decrease Levemir to 12 units. 2. Continue to monitor blood sugar. 3. Fall precaution. 4. Nutritional support. 5. General nursing care. 6. Follow lab. 7. Care plan reviewed and discussed with staff. JOB# [id number]
[2018-05-01] MEDS: Budesonide 0.5 Mg/2 mL Ud HHN SCH ×2 (06:31→19:21)
[2018-05-01] MEDS: INSULIN ASPART SLIDING SCALE 100 UNITS/ML UNIT SUBQ SCH ×3 (06:41→21:00)
[2018-05-01] MEDS: Docusate Sodium 100 mg/10 mL UD PO SCH ×2 (08:21→17:52)
[2018-05-01] MEDS: Dextromethorphan/Quinidine 20mg/10mg Cap PO SCH (08:22)
[2018-05-01] MEDS: QUEtiapine Fumarate 100 MG, QUEtiapine Fumarate 75 MG PO SCH ×2 (08:22→17:53)
[2018-05-01] MEDS: Multivitamin Tab PO SCH (08:24)
[2018-05-01] MEDS: Insulin Detemir 100 units/mL 10mL Vial SUBQ SCH (09:30)
--- NOTE | 2018-05-01 17:28 | Progress Notes ---
DATE: 05/01/2018 SUBJECTIVE: The patient is currently in the hospital due to yelling and screaming. He is calmer today, not so much yelling, not so much screaming. Remains confused and disoriented. He seems a lot more comfortable. He also slept better yesterday. He is very confused, disoriented. ASSESSMENT: The patient is calmer, seems to be showing some signs of improvement. We will continue to monitor to see if there is any consistency in his current behaviors. PLAN: We will continue to monitor, continue current dosing of medications. JOB# [id number]
[2018-05-02] MEDS: Albuterol/Ipratropium Neb 3 ML AERS HHN SCH ×4 (00:49→19:31)
[2018-05-02] MEDS: INSULIN ASPART SLIDING SCALE 100 UNITS/ML UNIT SUBQ SCH ×4 (06:57→20:34)
[2018-05-02] MEDS: Budesonide 0.5 Mg/2 mL Ud HHN SCH ×2 (07:50→19:31)
[2018-05-02] MEDS: Dextromethorphan/Quinidine 20mg/10mg Cap PO SCH (10:00)
[2018-05-02] MEDS: Multivitamin Tab PO SCH (10:00)
[2018-05-02] MEDS: QUEtiapine Fumarate 100 MG, QUEtiapine Fumarate 75 MG PO SCH ×2 (10:00→16:55)
[2018-05-02] MEDS: Insulin Detemir 100 units/mL 10mL Vial SUBQ SCH (10:00)
[2018-05-02] MEDS: Docusate Sodium 100 mg/10 mL UD PO SCH ×2 (10:00→16:55)
--- NOTE | 2018-05-02 16:35 | Progress Notes ---
DATE: 05/02/2018 SUBJECTIVE: A 62-year-old male significantly calmer on exam. No longer with yelling episodes as much, screaming a lot less, resting more comfortably, more relaxed, still with episodes of yelling out, but far less, still noted to be restless at times. Medications were noted. The patient really at this point has nowhere to go. Because of his behaviors, we have not been able to place, but he is showing signs of improvement. We will attempt to have reevaluation for disposition planning. ASSESSMENT: The patient remains symptomatic. Episodes of verbal outbursts. I will be in his dosing of Seroquel. Continue Klonopin. JOB# [id number]
[2018-05-03] MEDS: Albuterol/Ipratropium Neb 3 ML AERS HHN SCH ×4 (00:06→19:26)
--- NOTE | 2018-05-03 02:13 | Progress Notes ---
DATE: IDENTIFICATION: A 62-year-old male. SUBJECTIVE: The patient seen and examined. The patient is lying in the bed, follows command, gets confused at that time, the patient remained hemodynamically stable. PHYSICAL EXAMINATION: VITAL SIGNS: Temperature 97.8, pulse is 92, respiratory rate is 16, blood pressure 124/73. Glucoscan has been reviewed. HEENT: No facial asymmetry. NECK: Supple, no JVD. HEART: Regular. CHEST AND LUNGS: Equal in expansion. No expiratory wheezing. ABDOMEN: Soft. EXTREMITIES: No edema. CLINICAL IMPRESSION: 1. Diabetes mellitus. 2. Hypothyroidism. 3. Psychotic disorder. 4. Status post T10-T11 laminectomy. 5. Degenerative joint disease. 6. High risk for fall. 7. Chronic pain syndrome. PLAN: 1. Monitor blood sugar, blood pressure. 2. Synthroid. 3. Diabetes management. 4. Psych medication and psych followup. 5. Fall precautions. 6. Nutritional supplement. 7. Care plan reviewed. JOB# [id number]
[2018-05-03] MEDS: INSULIN ASPART SLIDING SCALE 100 UNITS/ML UNIT SUBQ SCH ×4 (06:31→20:54)
[2018-05-03] MEDS: Budesonide 0.5 Mg/2 mL Ud HHN SCH ×2 (07:08→19:36)
[2018-05-03] MEDS: QUEtiapine Fumarate 100 MG, QUEtiapine Fumarate 75 MG PO SCH ×2 (09:49→17:48)
[2018-05-03] MEDS: Docusate Sodium 100 mg/10 mL UD PO SCH ×2 (09:49→17:48)
[2018-05-03] MEDS: Dextromethorphan/Quinidine 20mg/10mg Cap PO SCH (09:49)
[2018-05-03] MEDS: Multivitamin Tab PO SCH (09:49)
[2018-05-03] MEDS: Insulin Detemir 100 units/mL 10mL Vial SUBQ SCH (10:00)
[2018-05-04] MEDS: Albuterol/Ipratropium Neb 3 ML AERS HHN SCH ×4 (01:19→19:31)
--- NOTE | 2018-05-04 02:49 | Progress Notes ---
DATE: 05/03/2018 SUBJECTIVE: The patient is significantly calmer, still with some yelling episodes, screaming episodes, very confused, disoriented. This has not changed, but he is no longer screaming as much, much calmer appearing, no longer in as much distress. Some over sedation noted. Staff holding Klonopin if not needed, we will switch to p.r.n. I also decreased his dosing of Seroquel. ASSESSMENT: The patient is showing signs of improvement. Concerns for over sedation. PLAN: We will continue to monitor, switch Klonopin to p.r.n. dosing. The patient has nowhere to go at this time, currently gravely disabled. We are actively trying to find him a place to go. JOB# [id number]
[2018-05-04] MEDS: INSULIN ASPART SLIDING SCALE 100 UNITS/ML UNIT SUBQ SCH ×4 (06:44→21:04)
[2018-05-04] MEDS: Budesonide 0.5 Mg/2 mL Ud HHN SCH (07:24)
[2018-05-04] MEDS: Multivitamin Tab PO SCH (09:22)
[2018-05-04] MEDS: Docusate Sodium 100 mg/10 mL UD PO SCH ×2 (09:22→16:41)
[2018-05-04] MEDS: Dextromethorphan/Quinidine 20mg/10mg Cap PO SCH (09:22)
[2018-05-04] MEDS: QUEtiapine Fumarate 100 MG, QUEtiapine Fumarate 75 MG PO SCH ×2 (09:23→16:41)
[2018-05-04] MEDS: Insulin Detemir 100 units/mL 10mL Vial SUBQ SCH (09:25)
--- NOTE | 2018-05-04 23:28 | Progress Notes ---
DATE: 05/04/[address] Baeza. Case was discussed with staff of the patient, reviewed records. The patient is reported to be calmer with episodes of yelling and screaming episodes. Continues to be confused, the screaming, has calmed down a little bit. He is not as much distressed. He is somewhat over sedated at times, so the staff has been holding the Klonopin. He is showing signs of improvement. He is sleeping better, eating better and we will continue the patient in group therapy, milieu therapy, adjust medication as needed. JOB# [id number]
[2018-05-05] MEDS: Albuterol/Ipratropium Neb 3 ML AERS HHN SCH ×4 (01:26→19:51)
[2018-05-05] MEDS: INSULIN ASPART SLIDING SCALE 100 UNITS/ML UNIT SUBQ SCH ×4 (06:36→21:07)
[2018-05-05] MEDS: Budesonide 0.5 Mg/2 mL Ud HHN SCH ×2 (06:58→19:51)
[2018-05-05] MEDS: Multivitamin Tab PO SCH (09:19)
[2018-05-05] MEDS: Dextromethorphan/Quinidine 20mg/10mg Cap PO SCH (09:22)
[2018-05-05] MEDS: QUEtiapine Fumarate 100 MG, QUEtiapine Fumarate 75 MG PO SCH ×2 (09:22→16:26)
[2018-05-05] MEDS: Docusate Sodium 100 mg/10 mL UD PO SCH (10:42)
[2018-05-05] MEDS: Insulin Detemir 100 units/mL 10mL Vial SUBQ SCH (10:42)
--- NOTE | 2018-05-05 14:28 | Progress Notes ---
DATE: 05/05/2018 SUBJECTIVE: Case was discussed with staff of the patient, reviewed records. The patient ____ episodes of yelling and screaming, confused, unable to make safe plan for self-care, though his episodes of agitation are not as prominent. He is sleeping better, eating better. No side effects of the medication, no sedation, no nausea, no extrapyramidal symptoms. We will continue the patient in group therapy, milieu therapy, and adjust medications as needed. JOB# [id number]
[2018-05-06] MEDS: INSULIN ASPART SLIDING SCALE 100 UNITS/ML UNIT SUBQ SCH ×4 (06:39→20:26)
[2018-05-06] MEDS: Budesonide 0.5 Mg/2 mL Ud HHN SCH ×2 (07:37→19:50)
[2018-05-06] MEDS: Albuterol/Ipratropium Neb 3 ML AERS HHN SCH ×3 (07:37→19:48)
[2018-05-06] MEDS: Dextromethorphan/Quinidine 20mg/10mg Cap PO SCH (08:52)
[2018-05-06] MEDS: Insulin Detemir 100 units/mL 10mL Vial SUBQ SCH (08:52)
[2018-05-06] MEDS: Docusate Sodium 100 mg/10 mL UD PO SCH ×2 (08:52→17:41)
[2018-05-06] MEDS: QUEtiapine Fumarate 100 MG, QUEtiapine Fumarate 75 MG PO SCH ×2 (08:53→17:41)
[2018-05-06] MEDS: Multivitamin Tab PO SCH (08:53)
--- NOTE | 2018-05-06 22:52 | Progress Notes ---
DATE: SUBJECTIVE: The patient was seen and evaluated. The patient's chart reviewed. Covering for Dr. Lau. Overnight, the patient has continued to be sent, easily irritable, agitated. Today on cygp-nw-hmqd evaluation, the patient refusing to be interviewed and is mostly preoccupied about being discharged, but not amenable for conversation. MENTAL STATUS EXAMINATION: Observed to be still depressed. ASSESSMENT AND PLAN: The patient is a 62-year-old male with a history of opiate dependence, depression, who continues to have intermittent episodes of yelling, screaming, disoriented. We will continue with the current medication regimen, holding off the Klonopin to reduce sedation. JOB# [id number]
[2018-05-07] MEDS: Albuterol/Ipratropium Neb 3 ML AERS HHN SCH ×3 (01:41→12:34)
[2018-05-07] MEDS: INSULIN ASPART SLIDING SCALE 100 UNITS/ML UNIT SUBQ SCH ×3 (06:33→17:00)
[2018-05-07] MEDS: Budesonide 0.5 Mg/2 mL Ud HHN SCH ×2 (06:40→20:41)
[2018-05-07] MEDS: QUEtiapine Fumarate 100 MG, QUEtiapine Fumarate 75 MG PO SCH ×2 (09:10→17:59)
[2018-05-07] MEDS: Docusate Sodium 100 mg/10 mL UD PO SCH ×2 (09:11→18:00)
[2018-05-07] MEDS: Multivitamin Tab PO SCH (09:11)
[2018-05-07] MEDS: Dextromethorphan/Quinidine 20mg/10mg Cap PO SCH (09:11)
[2018-05-07] MEDS: Insulin Detemir 100 units/mL 10mL Vial SUBQ SCH (09:49)
--- NOTE | 2018-05-07 20:17 | General Progress Note ---
Subjective - Review of Systems Service Date: 05/07/18 Subjective: Patient seen and examined (covering for DR NICK) chart reviewed patient seems very confused congested Objective - Results Result Diagrams: 04/21/18 05:56 04/21/18 05:56 Recent Labs: Laboratory Last Values WBC 4.5 Th/cmm (4.8-10.8) L 04/21/18 05:56 RBC 3.27 Mil/cmm (4.30-5.70) L 04/21/18 05:56 Hgb 10.2 gm/dL (12-16) L 04/21/18 05:56 Hct 30.6 % (41.0-60) L 04/21/18 05:56 MCV 93.6 fl (80-99) 04/21/18 05:56 MCH 31.1 pg (26.0-30.0) H 04/21/18 05:56 MCHC Differential 33.2 pg (28.0-36.0) 04/21/18 05:56 RDW 16.7 % (11.5-20.0) 04/21/18 05:56 Plt Count 302 Th/cmm (150-400) 04/21/18 05:56 MPV 6.8 fl 04/21/18 05:56 Neutrophils % 58.3 % (40.0-80.0) 04/21/18 05:56 Lymphocytes % 29.4 % (20.0-50.0) 04/21/18 05:56 Monocytes % 7.6 % (2.0-10.0) 04/21/18 05:56 Eosinophils % 4.2 % (0.0-5.0) 04/21/18 05:56 Basophils % 0.5 % (0.0-2.0) 04/21/18 05:56 Sodium 142 mEq/L (136-145) 04/21/18 05:56 Potassium 3.3 mEq/L (3.5-5.1) L 04/21/18 05:56 Chloride 107 mEq/L (98-107) 04/21/18 05:56 Carbon Dioxide 29.7 mEq/L (21.0-31.0) 04/21/18 05:56 Anion Gap 8.6 (7.0-16.0) 04/21/18 05:56 BUN 13 mg/dL (7-25) 04/21/18 05:56 Creatinine 1.1 mg/dL (0.7-1.3) 04/21/18 05:56 Est GFR ( Amer) > 60.0 ml/min (>90) 04/21/18 05:56 Est GFR (Non-Af Amer) > 60.0 ml/min 04/21/18 05:56 BUN/Creatinine Ratio 11.8 04/21/18 05:56 Glucose 98 mg/dL (70-105) 04/21/18 05:56 POC Glucose 95 MG/DL (70 - 105) 04/29/18 16:35 Calcium 9.3 mg/dL (8.6-10.3) 04/21/18 05:56 Magnesium 2.3 mg/dL (1.9-2.7) 04/21/18 05:56 Total Bilirubin 0.8 mg/dL (0.3-1.0) 04/21/18 05:56 AST 15 U/L (13-39) 04/21/18 05:56 ALT 23 U/L (7-52) 04/21/18 05:56 Alkaline Phosphatase 71 U/L (34-104) 04/21/18 05:56 Total Protein 6.4 gm/dL (6.0-8.3) 04/21/18 05:56 Albumin 3.6 gm/dL (4.2-5.5) L 04/21/18 05:56 Globulin 2.8 gm/dL 04/21/18 05:56 Albumin/Globulin Ratio 1.3 (1.0-1.8) 04/21/18 05:56 Triglycerides 165 mg/dL (<150) H 04/12/18 20:05 Cholesterol 185 mg/dL (<200) 04/12/18 20:05 LDL Cholesterol Direct 111 mg/dL (75-193) 04/12/18 20:05 HDL Cholesterol 45 mg/dL (23-92) 04/12/18 20:05 TSH 13.42 uIU/ml (0.34-5.60) H 04/19/18 07:40 Valproic Acid 21.6 ug/mL (50.0-100.0) L 04/25/18 06:29 RPR NONREACTIVE (NONREACTIVE) 04/12/18 20:05 - Physical Exam Vitals and I&O: Vital Signs Temp 101.1 F 05/07/18 19:46 Pulse 110 05/07/18 19:46 Resp 18 05/07/18 19:46 BP 145/105 05/07/18 19:46 Pulse Ox 92 05/07/18 19:46 Intake & Output 05/07/18 05/07/18 05/08/18 06:59 18:59 06:59 Intake Total 240 1800 60 Output Total 1 Balance 239 1800 60 Intake: Oral 240 1800 60 Output: Urine/Stool Mix 1 Other: # Voids 3 3 2 # Bowel Movements 0 1 0 Active Medications: Current Medications Acetaminophen (Tylenol) 650 mg PO Q6HR PRN PRN Reason: Mild Pain 1-3 or Fever >101 Stop: 06/11/18 22:43 Al Hydrox/Mg Hydrox/Simethicone (Maalox) 30 ml PO Q4HR PRN PRN Reason: GI DISTRESS Stop: 06/11/18 22:40 Albuterol/Ipratropium (Duoneb Neb) 3 ml HHN Q2HR PRN PRN Reason: Shortness of Breath Stop: 06/11/18 22:43 Last Admin: 04/18/18 05:19 Dose: 3 ml Albuterol/Ipratropium (Duoneb Neb) 3 ml HHN Q6HRT [facility] Stop: 06/12/18 00:00 Last Admin: 05/07/18 12:34 Dose: 3 ml Budesonide (Pulmicort) 0.5 mg HHN BIDRT [facility] Stop: 06/16/18 18:59 Last Admin: 05/07/18 06:40 Dose: 0.5 mg Cephalexin Monohydrate (Keflex) 500 mg PO QID [facility] Stop: 07/07/18 08:59 Clonazepam (Klonopin) 0.5 mg PO BID PRN; Protocol PRN Reason: Agitation Stop: 07/02/18 21:59 Last Admin: 05/07/18 09:11 Dose: 0.5 mg Dextromethorphan/Quinidine (Nuedexta 20mg-10mg) 1 cap PO DAILY [facility] Stop: 06/26/18 08:59 Last Admin: 05/07/18 09:11 Dose: 1 cap Divalproex Sodium (Depakote Dr) 500 mg PO Q12HR [facility]; Protocol Stop: 06/27/18 20:59 Last Admin: 05/07/18 09:11 Dose: 500 mg Docusate Sodium (Colace) 100 mg PO BID [facility] Stop: 06/12/18 08:59 Last Admin: 05/07/18 18:00 Dose: Not Given Hydrocortisone (Cortef) 10 mg PO BID [facility] Stop: 06/16/18 16:59 Last Admin: 05/07/18 18:00 Dose: 10 mg Insulin Aspart (Novolog Insulin Sliding Scale) 0 units SUBQ ACHS [facility]; Protocol Stop: 06/12/18 07:29 Last Admin: 05/07/18 17:00 Dose: Not Given Insulin Detemir (Levemir Insulin) 12 units SUBQ DAILY [facility]; Protocol Stop: 06/30/18 08:59 Last Admin: 05/07/18 09:49 Dose: 12 units Levothyroxine Sodium 0.1 mg/ (Levothyroxine Sodium 0.075 mg) 0.175 mg PO QDAC [facility] Stop: 06/20/18 07:29 Last Admin: 05/07/18 06:33 Dose: 0.175 mg Magnesium Hydroxide (Milk Of Magnesia) 30 ml PO HS PRN PRN Reason: Constipation Multivitamins/Vitamin C (Theragran) 1 tab PO DAILY [facility] Stop: 06/12/18 08:59 Last Admin: 05/07/18 09:11 Dose: 1 tab Quetiapine Fumarate 100 mg/ (Quetiapine Fumarate 75 mg) 175 mg PO BID [facility] Stop: 06/26/18 16:59 Last Admin: 05/07/18 17:59 Dose: 175 mg Quetiapine Fumarate (Seroquel) 300 mg PO HS [facility] Stop: 07/01/18 20:59 Last Admin: 05/06/18 20:26 Dose: 300 mg General: No acute distress Cardiovascular: Regular rate Lungs: Other (rales bilaterally) Abdomen: Soft, no Tender Extremities: Other (left foot superficial wound with surrounding erythema noted) Assessment/Plan - Assessment Assessment: Left foot cellulitis Acute trachebronchitis Hypothyrodism Back pain Psych disorder - Plan Plan: Wound care Keflex Labs ordered Aspiration precaution Prn breathing treatment Plan of care discussed with nursing staff Nutritional Asmnt/Malnutr-PDOC - Dietary Evaluation Malnutrition Findings (Please click <Entered> for more info): Nutritional Asmnt/Malnutrition Start: 04/13/18 14: 06 Text: Status: Complete Freq: Protocol: Document 04/13/18 14:09 LIZSHEKHARG (Rec: 04/13/18 14:26 LIZMAURY [email or web address]) Nutritional Asmnt/Malnutrition Patient General Information Nutritional Screening High Risk Diagnosis psychosis Pertinent Medical Hx/Surgical Hx HTN, DM, asthma/COPD, DVT/PE, dyslipidemia, Thyroid diorder, ddpression, bipolar Subjective Information Pt seen resting in bed at time of visit, not answering RD greeting. Per nurse, pt consumed boaut 90% of breakfast and lunch today. Pt is able to eat by himself. Glucose 218 at admission noted . Diabetic education is not approriate at this time. Current Diet Order/ Nutrition Support pureed, 1800cal ADA Pertinent Medications colace, novolog, levemir, synthroid, theragran, seroquel Pertinent Labs 04/13 POC 116-165 04/12 K 3.1, Cr 0.6, glucose 218, alb 3.7 Nutritional Hx/Data Height 1.7 m Height (Calculated Centimeters) 170.2 Current Weight (lbs) 90.265 kg Weight (Calculated Kilograms) 90.3 Weight (Calculated Grams) 29166.9 [place] Body Weight 148 Body Mass Index (BMI) 31.1 Weight Status Approriate GI Symptoms GI Symptoms None Last BM not indicated Difficult in: None Skin Integrity/Comment: intact. old scar from laminectomy Current %PO Good (75-100%) Estimated Nutritional Goals BEE in Kcals: Adj wt of IBW Calories/Kcals/Kg 25-30 ajd wt 73kg Kcals Calculated 1801-7035 Protein: Adj wt of IBW Protein g/k-1.2 Protein Calculated 73-87 Fluid: ml 1825-2190ml (1ml/kcal) Nutritional Problem 1. Problem Problem altered nutrition related labs Etiology hx of DM, hyperglycemia Signs/Symptoms: glucose 218, POC 116-165 Malnutrition Alert Is there a minimum of two criteria No selected? Query Text:Check all the applicable criteria. A minimum of two criteria are recommended for diagnosis of either severe or non-severe malnutrition. Malnutrition Related to Morbid Obesity Malnutrition related to morbid obesity No Intervention/Recommendation Comments 1. Continue with pureed 1800 gopi ADA diet as ordered. Will attemp to discuss diabetic diet with pt at next visit. to adjust insulin regimen for optimal glycemic control. 2. Monitor PO intake, wt, labs and skin integrity 3. F/U as moderate risk in 3-5 days, 04/16-04/18 Expected Outcomes/Goals Expected Outcomes/Goals 1. PO intake to meet at least 75% of nutritional needs. 2. Wt stability, skin to remain intact, labs to approach WNL.
[2018-05-07] MEDS: Albuterol/Ipratropium Neb 3 ML AERS HHN PRN (20:40)
--- NOTE | 2018-05-07 21:30 | Progress Notes ---
DATE: 05/06/2018 Today on mdwr-od-qvzy evaluation, the patient is preoccupied about being discharged, disengaged, does not want to come to engage in conversation, withdrawn. MENTAL STATUS EXAMINATION: Withdrawn, disengaged, depressed, melancholic. ASSESSMENT AND PLAN: A 62-year-old male with a history of opiate dependence and depression with intermittent episodes of yelling, impulsive and unpredictable, unable to formulate a safe plan outside the structured environment. We will continue monitoring and evaluating and continue with primary psychiatrist's treatment plan and goals. JOB# [id number]
--- NOTE | 2018-05-08 10:25 | Diagnostic Imaging Report ---
Left foot (2 views) HISTORY: Pain, soft tissue swelling No acute abnormalities. No fractures. Joint spaces appear normal. Minimal spur formation seen off the plantar aspect of the posterior calcaneus. IMPRESSION: 1. No acute bony abnormalities 2. Minimal calcaneal spur formation
== END 2018-05-07 20:31 | disposition short-term general hospital (02) | DRG 885 ==
LOC: ER 19:42 → GERO 21:05
PROVIDERS: ADMIT Psychiatry & Neurology Psychiatry; ATTEND Psychiatry & Neurology Psychiatry
DX: F29 Unspecified psychosis not due to a substance or known physiological condition (principal); I26.99 Other pulmonary embolism without acute cor pulmonale; L03.116 Cellulitis of left lower limb; F39 Unspecified mood [affective] disorder; F41.9 Anxiety disorder, unspecified; M19.90 Unspecified osteoarthritis, unspecified site; D64.9 Anemia, unspecified; E03.9 Hypothyroidism, unspecified; I10 Essential (primary) hypertension; E11.9 Type 2 diabetes mellitus without complications; J44.9 Chronic obstructive pulmonary disease, unspecified; E78.5 Hyperlipidemia, unspecified; E87.6 Hypokalemia; F31.9 Bipolar disorder, unspecified; G89.4 Chronic pain syndrome; G47.33 Obstructive sleep apnea (adult) (pediatric); J20.9 Acute bronchitis, unspecified; Z88.5 Allergy status to narcotic agent; Z88.0 Allergy status to penicillin; Z86.718 Personal history of other venous thrombosis and embolism; Z68.31 Body mass index [BMI] 31.0-31.9, adult; Z82.49 Family history of ischemic heart disease and other diseases of the circulatory system; Z86.711 Personal history of pulmonary embolism; Z79.4 Long term (current) use of insulin; Z91.81 History of falling
CPT/HCPCS: 36415-UA; 71045-TC; 73620-TC-LT; 80053-TC; 80061-TC; 80164-TC; 82948-90; 83036-90; 83735-TC; 84443-TC; 85007-TC; 85025-TC; 86592-TC; 93005; 94640; 94760; 97530; J1815; J2185; J3370; X3904; Z7610

== ENCOUNTER 2018-05-07 21:10 | Inpatient (IN) | payer MEDICARE, BC ==
[~2018-05-07 21:10] MED LIST: Meropenem 500 MG in Sodium Chloride 0.9% 100 ML IV ONE
[2018-05-07] MEDS ORDERED: Albuterol/Ipratropium Neb 3 ML AERS HHN PRN (22:11)
[2018-05-07 23:29] LABS: HEMATOCRIT 38.1 % (41.0-60); HEMOGLOBIN 12.4 gm/dL (12-16); MEAN CELL VOLUME 92.1 fl (80-99); MEAN CORPUSCULAR HGB CONC 32.6 pg (28.0-36.0); MEAN PLATELET VOLUME 7.8 fl; PLATELET COUNT 326 Th/cmm (150-400); RED BLOOD COUNT 4.13 Mil/cmm (4.30-5.70); RED CELL DISTRIBUTION WIDTH 15.3 % (11.5-20.0); WHITE BLOOD COUNT 14.6 Th/cmm (4.8-10.8)
[2018-05-07 23:40] LABS: ANION GAP 13.5 (7.0-16.0); BUN - UREA NITROGEN 17 mg/dL (7-25); CALCIUM SERUM 9.2 mg/dL (8.6-10.3); CARBON DIOXIDE 29.2 mEq/L (21.0-31.0); CHLORIDE 102 mEq/L (98-107); CREATININE - SERUM 0.7 mg/dL (0.7-1.3); GFR AFRICAN-AMERICAN > 60.0 ml/min (>90); GFR NON AFRICAN-AMERICAN > 60.0 ml/min; GLUCOSE 197 mg/dL (70-105); POTASSIUM SERUM 3.7 mEq/L (3.5-5.1); SODIUM SERUM 141 mEq/L (136-145)
[2018-05-07 23:44] LABS: pH 7.45 (7.35-7.45)
[2018-05-07 23:45] LABS: ALLEN TEST pos
[2018-05-07 23:48] VITALS: BP 124/80
[2018-05-07 23:52] LABS: BAND NEUTROPHILE 2 % (0-10); LYMPHOCYTE 8 % (20-50); MONOCYTE 4 % (2-10); NEUTROPHILS 86 % (40-80); PLATELET ESTIMATE ADEQUATE (NORMAL)
[2018-05-08] MEDS ORDERED: Sodium Chloride 0.9% 1,000 ML IV SCH
[2018-05-08] MEDS: Meropenem 500 MG in Sodium Chloride 0.9% 100 ML IV SCH ×3 (00:16→16:04)
[2018-05-08] MEDS: Albuterol/Ipratropium Neb 3 ML AERS HHN SCH ×4 (00:30→19:49)
[2018-05-08] MEDS ORDERED: Albuterol/Ipratropium Neb 3 ML AERS HHN SCH ×2 (01:00)
[2018-05-08 02:15] LABS: INF A SCREEN NEG FOR INF A
[2018-05-08 02:16] LABS: INF B SCREEN NEG FOR INF B
[2018-05-08] MEDS: INSULIN ASPART SLIDING SCALE 100 UNITS/ML UNIT SUBQ SCH ×4 (06:34→21:45)
[2018-05-08 06:40] LABS: HEMOGLOBIN 10.9 gm/dL (12-16); MEAN CELL VOLUME 92.2 fl (80-99); MEAN CORPUSCULAR HEMOGLOBIN 30.9 pg (26.0-30.0); MEAN CORPUSCULAR HGB CONC 33.6 pg (28.0-36.0); MEAN PLATELET VOLUME 7.2 fl; PLATELET COUNT 277 Th/cmm (150-400); RED BLOOD COUNT 3.52 Mil/cmm (4.30-5.70); RED CELL DISTRIBUTION WIDTH 15.2 % (11.5-20.0); WHITE BLOOD COUNT 13.6 Th/cmm (4.8-10.8)
[2018-05-08 06:46] LABS: HEMATOCRIT 32.5 % (41.0-60)
[2018-05-08] MEDS: Budesonide 0.5 Mg/2 mL Ud HHN SCH ×2 (06:49→19:49)
[2018-05-08 07:08] LABS: ALB/GLOB RATIO 0.9 (1.0-1.8); ALKALINE PHOSPHATASE 83 U/L (34-104); ANION GAP 10.6 (7.0-16.0); BILIRUBIN,TOTAL 0.5 mg/dL (0.3-1.0); BUN - UREA NITROGEN 18 mg/dL (7-25); CALCIUM SERUM 8.7 mg/dL (8.6-10.3); CARBON DIOXIDE 28.9 mEq/L (21.0-31.0); CHLORIDE 107 mEq/L (98-107); CREATININE - SERUM 0.6 mg/dL (0.7-1.3); GFR AFRICAN-AMERICAN > 60.0 ml/min (>90); GFR NON AFRICAN-AMERICAN > 60.0 ml/min; GLUCOSE 150 mg/dL (70-105); POTASSIUM SERUM 3.5 mEq/L (3.5-5.1); SGOT 33 U/L (13-39); SGPT/ALT 41 U/L (7-52); SODIUM SERUM 143 mEq/L (136-145); TOTAL PROTEIN,SERUM 6.2 gm/dL (6.0-8.3)
[2018-05-08] MEDS ORDERED: Levothyroxine 0.025 Mg Tab PO SCH (07:30)
[2018-05-08 07:47] LABS: BAND NEUTROPHILE 3 % (0-10); BASOPHIL 0 % (0-3); EOSINOPHIL 0 % (0-5); LYMPHOCYTE 10 % (20-50); MONOCYTE 6 % (2-10); NEUTROPHILS 81 % (40-80)
[2018-05-08] MEDS ORDERED: VTE Chemical Prophylaxis Screen/Admission MC PRN (09:08)
--- NOTE | 2018-05-08 09:23 | Diagnostic Imaging Report ---
Portable chest x-ray HISTORY: Pneumonia The heart appears enlarged. There is a poor inspiration. Accentuation of interstitial markings within the left lower lobe. Faint infiltrate is difficult to exclude. If possible, standard PA lateral views recommended. No definite hilar or mediastinal abnormalities. IMPRESSION: 1. Accentuation of interstitial markings with the left lower lobe. This may be related to poor inspiration. Standard PA and lateral views would provide for further assessment and evaluation if needed. 2. Cardiomegaly 3. Findings consistent with surgical changes about the distal left clavicle.
[2018-05-08] MEDS: Insulin Detemir 100 units/mL 10mL Vial SUBQ SCH ×2 (10:00→11:50)
[2018-05-08] MEDS ORDERED: Haloperidol Lactate 5 mg/mL 1mL Vial IVP PRN (10:17)
[2018-05-08] MEDS ORDERED: Haloperidol Lactate 5 mg/mL 1mL Vial IM PRN (11:09)
[2018-05-08] MEDS ORDERED: Haloperidol Lactate 5 mg/mL 1mL Vial ONE (11:15)
[2018-05-08] MEDS: Haloperidol Lactate 5 mg/mL 1mL Vial IM PRN (11:17)
[2018-05-08] MEDS: Vancomycin HCl 1.5 GM in Sodium Chloride 0.9% 500 ML IV SCH (11:51)
[2018-05-08] MEDS ORDERED: Probiotic Screen MC PRN (12:11)
[2018-05-08] MEDS: Lactobacillus Rhamnosus GG 15 Billion CFU CAP.SPRINK PO SCH (14:54)
[2018-05-08] MEDS: D5-0.45NS 1,000 ML IV SCH (14:55)
--- NOTE | 2018-05-08 19:49 | Consultation ---
DATE OF CONSULTATION: 05/08/2018 PULMONARY AND CRITICAL CARE CONSULTATION REASON FOR CONSULTATION: The patient with shortness of breath. CONSULT NOTE: This is a 62-year-old gentleman known to me very well. The patient's primary problem is the patient had a chronic low back pain. The patient had adverse effect of morphine sulfate when he came to the [facility] approximately 2 months ago. Subsequently, the patient was intubated. The patient needed to have diskectomy, which was done by ____. Subsequently, the patient postoperatively was okay, was intubated, extubated and subsequently was moved to [place] for further management and treatment. The patient continued to have periodic psychotic, was using CPAP and BiPAP at nighttime for strongly suspect severe obstructive sleep apnea syndrome. Also, the patient became hypotensive, put on a BiPAP on suspicion of PE. Family daughter did not want to do any invasive workup at that time including CT angio. Subsequently, the patient was moved to psychiatric hospital up at [facility] in [facility]. Apparently, the patient was moved back into the regular floor yesterday to help his chest congestion with possible pneumonia. The patient is quite disoriented, agitated, some gargling noise, but meaningful history from the patient is very difficult and not available at this particular time. PAST MEDICAL HISTORY: As mentioned above. PHYSICAL EXAMINATION: GENERAL: This is a heavy set, looking elderly gentleman, appears to be awake, restless, fidgety, etc. and very minimal communication can be done. No respiratory distress except for ____. VITAL SIGNS: Temperature is 98.1, blood pressure 130/70, respirations 20, saturation is 100% on 2 liters per minute. HEENT: Head is essentially unremarkable. Pupils appear equal and reactive to light. Oral cavity, limited exam with small oropharyngeal opening. NECK: Veins not visualized. CHEST: Shows slightly dorsal kyphosis with a significant secretory noise with coarse rhonchi. HEART: Regular. ABDOMEN: Slightly distended. EXTREMITIES: Shows poor pulsations. No cyanosis or dressing LABORATORY DATA: The patient's chest x-ray shows some haziness at the bases with some partial atelectasis with slightly enlarged on the right hilar region or it is uncoiling of aorta. The patient's other laboratory studies; white count is 13.6, hemoglobin 10.7, neutrophils 81, glucose is 140, and the patient's albumin is 3.0. ASSESSMENT: The patient has a significant suggestion of tracheobronchitis, question of aspiration or healthcare-associated tracheobronchitis, questionable pneumonitis at the bases. PLANS AND SUGGESTIONS: We will go ahead and get appropriate culture and blood cultures. We will cover with broad-spectrum antibiotic and also we will recheck the blood gases and also put nocturnal BiPAP and also once more stable, may consider doing CT of the chest and go from there. Thank you very much for letting me to see this patient. I will be glad to follow along with you. JOB# [id number]
--- NOTE | 2018-05-08 23:33 | Consultation ---
DATE OF CONSULTATION: 05/08/2018 HISTORY OF PRESENT ILLNESS: The patient is currently on the telemetry unit, transferred from the [facility] Unit, noted to be tachypneic, some apparent vomiting episodes, still confused. He is AO to name, place, not situation, not year, not month believes he is in the 1960 something. The patient was also mildly febrile concerns for sepsis that is why he was transferred. MENTAL STATUS EXAMINATION: The patient in one-point restraints. He is relatively calm at this time. ASSESSMENT: The patient is confused, disoriented, restless. PLAN: Continue to monitor. The patient had been doing fairly well with his dosing of medications. Klonopin did make quite a difference. We will recommend the continuation of Klonopin. We will continue to monitor and follow up on the [facility] unit. JOB# [id number]
[2018-05-09] MEDS: Meropenem 500 MG in Sodium Chloride 0.9% 100 ML IV SCH ×3 (00:13→16:07)
[2018-05-09] MEDS: Vancomycin HCl 1.5 GM in Sodium Chloride 0.9% 500 ML IV SCH ×3 (01:08→17:24)
[2018-05-09] MEDS: Albuterol/Ipratropium Neb 3 ML AERS HHN SCH ×5 (01:31→19:16)
--- NOTE | 2018-05-09 01:35 | History & Physical ---
ADMIT DATE: 05/08/2018 CHIEF COMPLAINT: Increasing chest secretions. HISTORY OF PRESENT ILLNESS: This is a 62-year-old male who was initially at [facility] and noticed increased chest secretions and high-grade fever. The patient was transferred to medical for further evaluation and treatment. The patient has an underlying history of psychiatric disorder, dementia. Patient is very poor historian. PAST MEDICAL HISTORY: Psychiatric disorders, hypothyroidism, diabetes, seizure disorder, and dementia. PAST SURGICAL HISTORY: None. FAMILY HISTORY: Noncontributory. SOCIAL HISTORY: No reported alcohol, tobacco, or street drugs. CURRENT MEDICATIONS: None. ALLERGIES: MORPHINE, PENICILLIN. REVIEW OF SYSTEMS: Positive for fever, shortness of breath, no chest pain, no dizziness, no palpitations, no diarrhea, no vomiting, no abdominal pain, and no constipation. No hematemesis or melena. PHYSICAL EXAMINATION: VITAL SIGNS: Temperature 98.6, pulse 80, respirations 19, blood pressure 122/83. HEENT: No neck stiffness. HEART: S1, S2 normal. LUNGS: Bilaterally clear to auscultation. ABDOMEN: Soft, nondistended, nontender. NEUROLOGIC: Awake, but confused, agitated. EXTREMITIES: No edema. AVAILABLE LABORATORY DATA: Reviewed ASSESSMENT: 1. Pneumonia. 2. Diabetes. 3. Dysphagia. 4. Dementia. 5. Hypothyroidism. 6. Mental disorders. PLAN: The patient will be continued on vancomycin and meropenem. Infectious disease and Pulmonology consulted. NG feeding has been inserted since the patient has trouble swallowing. The patient's oral medication has been reconciled and will be continued. Monitor blood sugar. Monitor vitals. Follow blood cultures. Zofran and Toradol for pain control. The patient was begun IV fluids. Monitor lab and vitals. Psych consulted and SCDs for DVT, and discussed with nursing staff. JOB# [id number] WHITLEY
[2018-05-09 04:57] LABS: % BASOPHILS 0.6 % (0.0-2.0); % EOSINOPHILS 1.1 % (0.0-5.0); % LYMPHOCYTES 13.5 % (20.0-50.0); % MONOCYTES 11.5 % (2.0-10.0); % NEUTROPHILS 73.3 % (40.0-80.0); EOSINOPHILE ABSOLUTE 0.1 Th/cmm (0.1-0.4); HEMATOCRIT 30.3 % (41.0-60); HEMOGLOBIN 9.8 gm/dL (12-16); LYMPHOCYTE ABSOLUTE 1.1 Th/cmm (1.5-3.0); MEAN CELL VOLUME 92.3 fl (80-99); MEAN CORPUSCULAR HEMOGLOBIN 29.9 pg (26.0-30.0); MEAN CORPUSCULAR HGB CONC 32.4 pg (28.0-36.0); MEAN PLATELET VOLUME 7.3 fl; MONOCYTE ABSOLUTE 0.9 Th/cmm (0.3-1.0); NEUTROPHILE ABSOLUTE 5.9 Th/cmm (1.8-8.0); PLATELET COUNT 258 Th/cmm (150-400); RED BLOOD COUNT 3.28 Mil/cmm (4.30-5.70)
[2018-05-09 05:20] LABS: INR 1.14 (0.5-1.4); PROTHROMBIN TIME (TEST) 11.7 SECONDS (9.5-11.5)
[2018-05-09 05:23] LABS: ALBUMIN 2.9 gm/dL (4.2-5.5); ALKALINE PHOSPHATASE 72 U/L (34-104); ANION GAP 9.1 (7.0-16.0); BILIRUBIN,TOTAL 0.4 mg/dL (0.3-1.0); BUN - UREA NITROGEN 10 mg/dL (7-25); CALCIUM SERUM 8.9 mg/dL (8.6-10.3); CHLORIDE 106 mEq/L (98-107); CREATININE - SERUM 0.4 mg/dL (0.7-1.3); GFR AFRICAN-AMERICAN > 60.0 ml/min (>90); GFR NON AFRICAN-AMERICAN > 60.0 ml/min; GLUCOSE 103 mg/dL (70-105); MAGNESIUM 1.8 mg/dL (1.9-2.7); POTASSIUM SERUM 3.1 mEq/L (3.5-5.1); SGOT 17 U/L (13-39); SGPT/ALT 27 U/L (7-52); SODIUM SERUM 140 mEq/L (136-145); TOTAL PROTEIN,SERUM 5.9 gm/dL (6.0-8.3)
[2018-05-09 06:34] LABS: URINE SOURCE CLEAN C
[2018-05-09] MEDS: D5-0.45NS 1,000 ML IV SCH (06:46)
[2018-05-09 06:49] LABS: URINE BILIRUBIN NEGATIVE (NEGATIVE); URINE BLOOD NEGATIVE (NEGATIVE); URINE GLUCOSE (UA) NEGATIVE (NEGATIVE); URINE KETONE TRACE mg/dL (NEGATIVE); URINE LEUKOCYTE ESTERASE NEGATIVE (NEGATIVE); URINE NITRATE NEGATIVE (NEGATIVE); URINE PROTEIN NEGATIVE (NEGATIVE)
[2018-05-09 06:53] LABS: URINE CLARITY CLEAR (CLEAR); URINE COLOR YELLOW; URINE MICROSCOPIC INDICATED? YES
[2018-05-09 06:59] LABS: URINE BACTERIA NONE SEEN /hpf (NONE SEEN); URINE EPITHELIAL CELLS FEW /lpf (FEW); URINE RBC 0-2 /hpf (0-5); URINE WBC 0-2 /hpf (0-5)
[2018-05-09] MEDS: Budesonide 0.5 Mg/2 mL Ud HHN SCH ×2 (07:18→11:42)
[2018-05-09] MEDS: INSULIN ASPART SLIDING SCALE 100 UNITS/ML UNIT SUBQ SCH ×4 (07:23→21:00)
--- NOTE | 2018-05-09 08:00 | Diagnostic Imaging Report ---
CHEST X-RAY: AP view INDICATION: NG tube placement COMPARISON: Chest x-ray 05/08/2018 at 1:48 AM FINDINGS: NG tube has been placed with tip in the stomach. Chronic lung changes are seen with increased bibasilar markings. IMPRESSION: NG tube within the stomach Increased bibasilar lung markings probably chronic. Faint infiltrate is less likely.
--- NOTE | 2018-05-09 08:04 | Diagnostic Imaging Report ---
CHEST X-RAY: AP view INDICATION: Shortness of breath COMPARISON: 05/08/2018 FINDINGS: NG tube is visualized coursing below the diaphragm with tip not seen. Chronic lung changes are seen with mild increased right basal lung markings. No focal consolidation or effusions. Heart size is normal. IMPRESSION: Increased right basal lung markings probably due to atelectasis. No focal consolidation identified COPD is suspected.
[2018-05-09] MEDS: Lactobacillus Rhamnosus GG 15 Billion CFU CAP.SPRINK PO SCH (08:12)
[2018-05-09] MEDS: Insulin Detemir 100 units/mL 10mL Vial SUBQ SCH (08:14)
[2018-05-09] MEDS: Haloperidol Lactate 5 mg/mL 1mL Vial IM PRN ×2 (10:03→21:18)
[2018-05-09 10:07] LABS: pH 7.43 (7.35-7.45)
[2018-05-09 10:08] LABS: ALLEN TEST Positive
--- NOTE | 2018-05-09 15:57 | Progress Notes ---
DATE: 05/09/2018 PROBLEM LIST: 1. Underlying shortness of breath. 2. Psychosis. 3. Sleep apnea syndrome. 4. History suggestive of PE. 5. History of lumbosacral surgery. 6. The patient is yelling and shouting, no respiratory distress, etc. PHYSICAL EXAMINATION: VITAL SIGNS: The patient's temperature is 98.5, blood pressure 145/85, respirations 18, saturation in mid 90s on 2 liters per minute. NECK: Veins not visualized. CHEST: Shows diminished air entry with occasional rhonchi. HEART: Regular. ABDOMEN: Soft, nontender. EXTREMITIES: Shows no peripheral edema. ASSESSMENT AND PLAN: The patient clinically appears to be not much significant psychiatric outlay affecting his respiratory status. Chest x-ray shows some streaky mild infiltrate of both the bases this could be a technical as well. PLANS AND SUGGESTIONS: Continue current treatment. We will discuss with nursing staff and also will consideration a DNR as per the patient's wishes couple of weeks ago at [facility] and go from there. JOB# [id number]
--- NOTE | 2018-05-09 20:10 | Consultation ---
DATE OF CONSULTATION: 05/09/2018 HISTORY OF PRESENT ILLNESS: The patient currently on the telemetry unit transferred from [facility], still yelling for his mom, very confused, disoriented, agitated, restless, in restraints. Fair sleep, fair appetite. No overt SI or HI. Currently back on the Klonopin dosing, concerns for over sedation. The patient remains agitated, mildly combative. I will be increasing dosing of Seroquel. I will be titrating dose of Seroquel today. Monitor and follow up. JOB# [id number]
--- NOTE | 2018-05-09 20:20 | General Progress Note ---
Subjective - Review of Systems Service Date: 05/09/18 Subjective: Patient seen and examined wants to eat pulled NG tube out requiring hand restrains for agitation Objective - Results Result Diagrams: 05/09/18 04:30 05/09/18 04:30 Recent Labs: Laboratory Last Values WBC 8.0 Th/cmm (4.8-10.8) D 05/09/18 04:30 RBC 3.28 Mil/cmm (4.30-5.70) L 05/09/18 04:30 Hgb 9.8 gm/dL (12-16) L 05/09/18 04:30 Hct 30.3 % (41.0-60) L 05/09/18 04:30 MCV 92.3 fl (80-99) 05/09/18 04:30 MCH 29.9 pg (26.0-30.0) 05/09/18 04:30 MCHC Differential 32.4 pg (28.0-36.0) 05/09/18 04:30 RDW 15.0 % (11.5-20.0) 05/09/18 04:30 Plt Count 258 Th/cmm (150-400) 05/09/18 04:30 MPV 7.3 fl 05/09/18 04:30 Add Manual Diff YES 05/08/18 06:10 Neutrophils % 73.3 % (40.0-80.0) 05/09/18 04:30 Band Neutrophils % 3 % (0-10) 05/08/18 06:10 Lymphocytes % 13.5 % (20.0-50.0) L 05/09/18 04:30 Monocytes % 11.5 % (2.0-10.0) H 05/09/18 04:30 Eosinophils % 1.1 % (0.0-5.0) 05/09/18 04:30 Basophils % 0.6 % (0.0-2.0) 05/09/18 04:30 Neutrophils (Manual) 81 % (40-80) H 05/08/18 06:10 Lymphocytes 10 % (20-50) L 05/08/18 06:10 Monocytes 6 % (2-10) 05/08/18 06:10 Eosinophils 0 % (0-5) 05/08/18 06:10 Basophils 0 % (0-3) 05/08/18 06:10 Platelet Estimate ADEQUATE (NORMAL) 05/07/18 22:10 PT 11.7 SECONDS (9.5-11.5) H 05/09/18 04:30 INR 1.14 (0.5-1.4) 05/09/18 04:30 PTT (Actin FS) 31.9 SECONDS (26.0-38.0) 05/09/18 04:30 Specimen Source Arterial 05/09/18 09:41 Sample Site Right Radial 05/09/18 09:41 pH 7.43 (7.35-7.45) 05/09/18 09:41 pCO2 44.0 mmHg (35.0-45.0) 05/09/18 09:41 pO2 75.0 mmHg (80.0-100.0) L 05/09/18 09:41 HCO3 28.2 mEq/L (20.0-26.0) H 05/09/18 09:41 Base Excess 4.3 mEq/L (-3.0-3.0) H 05/09/18 09:41 O2 Saturation 95.0 % (92.0-100.0) 05/09/18 09:41 Abilio Test Positive 05/09/18 09:41 Vent Rate NA 05/09/18 09:41 Inspired O2 28 05/09/18 09:41 Tidal Volume NA 05/09/18 09:41 PEEP NA 05/09/18 09:41 Pressure (ins/psv/peep) NA 05/09/18 09:41 Critical Value LZHANG 05/09/18 09:41 Sodium 140 mEq/L (136-145) 05/09/18 04:30 Potassium 3.1 mEq/L (3.5-5.1) L 05/09/18 04:30 Chloride 106 mEq/L (98-107) 05/09/18 04:30 Carbon Dioxide 28.0 mEq/L (21.0-31.0) 05/09/18 04:30 Anion Gap 9.1 (7.0-16.0) 05/09/18 04:30 BUN 10 mg/dL (7-25) 05/09/18 04:30 Creatinine 0.4 mg/dL (0.7-1.3) L 05/09/18 04:30 Est GFR ( Amer) > 60.0 ml/min (>90) 05/09/18 04:30 Est GFR (Non-Af Amer) > 60.0 ml/min 05/09/18 04:30 BUN/Creatinine Ratio 25.0 05/09/18 04:30 Glucose 103 mg/dL (70-105) 05/09/18 04:30 POC Glucose 99 MG/DL (70 - 105) 05/09/18 16:18 Whole Bld Lactic Acid 0.99 mmol/L (0.60-1.99) 05/07/18 22:10 Calcium 8.9 mg/dL (8.6-10.3) 05/09/18 04:30 Magnesium 1.8 mg/dL (1.9-2.7) L 05/09/18 04:30 Total Bilirubin 0.4 mg/dL (0.3-1.0) 05/09/18 04:30 AST 17 U/L (13-39) 05/09/18 04:30 ALT 27 U/L (7-52) 05/09/18 04:30 Alkaline Phosphatase 72 U/L (34-104) 05/09/18 04:30 Ammonia 67 umol/L (16-53) H 05/09/18 04:30 Total Protein 5.9 gm/dL (6.0-8.3) L 05/09/18 04:30 Albumin 2.9 gm/dL (4.2-5.5) L 05/09/18 04:30 Globulin 3.0 gm/dL 05/09/18 04:30 Albumin/Globulin Ratio 1.0 (1.0-1.8) 05/09/18 04:30 TSH 9.60 uIU/ml (0.34-5.60) H 05/09/18 04:30 Urine Source CLEAN C 05/09/18 05:35 Urine Color YELLOW 05/09/18 05:35 Urine Clarity CLEAR (CLEAR) 05/09/18 05:35 Urine pH 7.0 (4.6 - 8.0) 05/09/18 05:35 Ur Specific [place] 1.025 (1.005-1.030) 05/09/18 05:35 Urine Protein NEGATIVE mg/dL (NEGATIVE) 05/09/18 05:35 Urine Glucose (UA) NEGATIVE mg/dL (NEGATIVE) 05/09/18 05:35 Urine Ketones TRACE mg/dL (NEGATIVE) 05/09/18 05:35 Urine Blood NEGATIVE (NEGATIVE) 05/09/18 05:35 Urine Nitrate NEGATIVE (NEGATIVE) 05/09/18 05:35 Urine Bilirubin NEGATIVE (NEGATIVE) 05/09/18 05:35 Urine Urobilinogen 4.0 E.U./dL (0.2 - 1.0) H 05/09/18 05:35 Ur Leukocyte Esterase NEGATIVE (NEGATIVE) 05/09/18 05:35 Urine RBC 0-2 /hpf (0-5) H 05/09/18 05:35 Urine WBC 0-2 /hpf (0-5) 05/09/18 05:35 Ur Epithelial Cells FEW /lpf (FEW) 05/09/18 05:35 Urine Bacteria NONE SEEN /hpf (NONE SEEN) 05/09/18 05:35 Vancomycin Trough 11.5 ug/mL (5-10) H 05/09/18 09:00 Influenza A (Rapid) NEG FOR INF A 05/08/18 01:00 Influenza B (Rapid) NEG FOR INF B 05/08/18 01:00 - Physical Exam Vitals and I&O: Vital Signs Temp 98.5 F 05/09/18 18:00 Pulse 90 05/09/18 19:18 Resp 18 05/09/18 19:18 BP 150/80 05/09/18 18:00 Pulse Ox 97 05/09/18 19:18 Intake & Output 05/09/18 05/09/18 05/10/18 06:59 18:59 06:59 Intake Total 1340 700 Balance 1340 700 Weight (lbs) 83.915 kg Intake: Intake, IV Amount 1100 700 D5-0.45NS 1,000 ml @ 75 1000 mls/hr IV .[id number] [facility] Rx #:[id number] Meropenem 500 mg In 100 200 Sodium Chloride 0.9% 100 ml @ 100 mls/hr IV Q8H [facility] Rx#:[id number] Vancomycin HCl 1.5 gm In 500 Sodium Chloride 0.9% 500 ml @ 250 mls/hr IV Q8H [facility] Rx#:[id number] Oral 0 Tube Feeding 240 Other: # Voids 3 # Bowel Movements 0 Weight Source Bedscale Active Medications: Current Medications Acetaminophen (Tylenol) 650 mg PO Q4HR PRN PRN Reason: Pain Or Fever above 101 Stop: 07/06/18 21:39 Acetaminophen (Tylenol 650mg Supp) 650 mg RC Q6H PRN PRN Reason: fever > 100.4 Stop: 07/06/18 23:24 Last Admin: 05/08/18 00:15 Dose: 650 mg Albuterol/Ipratropium (Duoneb Neb) 3 ml HHN Q2HRT PRN PRN Reason: Wheezing Stop: 07/06/18 22:10 Albuterol/Ipratropium (Duoneb Neb) 3 ml HHN [id number] [facility] Stop: 07/07/18 18:59 Last Admin: 05/09/18 19:16 Dose: 3 ml Budesonide (Pulmicort) 0.5 mg HHN DAILYRT [facility] Stop: 07/08/18 06:59 Last Admin: 05/09/18 11:42 Dose: 0.5 mg Clonazepam (Klonopin) 0.5 mg PO BID PRN; Protocol PRN Reason: Agitation Stop: 07/07/18 16:03 Last Admin: 05/09/18 16:39 Dose: 0.5 mg Divalproex Sodium (Depakote Dr) 500 mg PO BID [facility]; Protocol Stop: 07/07/18 08:59 Last Admin: 05/09/18 16:39 Dose: 500 mg Haloperidol Lactate (Haldol) 5 mg IM Q6H PRN PRN Reason: Agitation Stop: 07/07/18 10:29 Last Admin: 05/09/18 10:03 Dose: 5 mg Heparin Sodium (Porcine) (Heparin) 5,000 units SUBQ Q8HR [facility] Stop: 07/07/18 20:59 Last Admin: 05/09/18 12:11 Dose: 5,000 units Hydrocortisone (Cortef) 10 mg PO BID [facility] Stop: 07/07/18 08:59 Last Admin: 05/09/18 17:21 Dose: 10 mg Meropenem 500 mg/ Sodium (Chloride) 100 mls @ 100 mls/hr IV Q8H [facility] Stop: 07/07/18 00:00 Last Infusion: 05/09/18 17:24 Dose: Infused Dextrose/Sodium Chloride (D5-0.45ns) 1,000 mls @ 75 mls/hr IV .[id number] [facility] Stop: 07/07/18 14:14 Last Admin: 05/09/18 06:46 Dose: 75 mls/hr Vancomycin HCl 1.5 gm/ Sodium (Chloride) 500 mls @ 250 mls/hr IV Q8H [facility] Stop: 07/08/18 09:59 Last Admin: 05/09/18 17:24 Dose: 250 mls/hr Insulin Aspart (Novolog Insulin Sliding Scale) 0 units SUBQ ACHS [facility]; Protocol Stop: 07/07/18 07:29 Last Admin: 05/09/18 16:21 Dose: Not Given Insulin Detemir (Levemir Insulin) 12 units SUBQ DAILY [facility]; Protocol Stop: 07/07/18 08:59 Last Admin: 05/09/18 08:14 Dose: 12 units Ketorolac Tromethamine (Toradol) 15 mg IVP Q6HR PRN PRN Reason: Pain (Moderate) Stop: 05/13/18 16:11 Last Admin: 05/09/18 14:44 Dose: 15 mg Lactobacillus Rhamnosus (Culturelle 15b) 1 each PO DAILY [facility] Stop: 07/07/18 13:59 Last Admin: 05/09/18 08:12 Dose: 1 each Levothyroxine Sodium 0.075 mg/ (Levothyroxine Sodium 0.1 mg) 0.175 mg PO QDAC [facility] Stop: 07/07/18 07:29 Last Admin: 05/09/18 06:48 Dose: 0.175 mg Miscellaneous (Vte Chemical Prophylaxis Screen/ Admission) 1 ea PRN PRN PRN Reason: PROTOCOL Stop: 07/07/18 09:07 Miscellaneous (Probiotic Screen) 1 ea PRN PRN PRN Reason: PROTOCOL Stop: 07/07/18 12:10 Miscellaneous (Vancomycin Iv Per Pharmacy) 1 ea PRN PRN PRN Reason: PROTOCOL Stop: 07/07/18 18:52 Ondansetron HCl (Zofran) 4 mg IV Q6H PRN PRN Reason: Nausea / Vomiting Stop: 07/06/18 23:30 Quetiapine Fumarate (Seroquel) 50 mg PO BID [facility]; Protocol Stop: 07/08/18 16:59 General: Alert, No acute distress Cardiovascular: Regular rate Lungs: Other (rales) Assessment/Plan - Assessment Assessment: Pneumonia Dysphagia Agitation Hypothyroidism Back pain - Plan Plan: Continue meropenem Puree diet with thickend liquids started ST eval in am Case discussed with Psych Klonopin added Continue synthroids Oxygen and bronchodilators Plan of care discussed with nursing staff Nutritional Asmnt/Malnutr-PDOC - Dietary Evaluation Malnutrition Findings (Please click <Entered> for more info): Nutritional Asmnt/Malnutrition Start: 05/08/18 15: 33 Text: Status: Complete Freq: Protocol: Document 05/08/18 15:33 LCHENG (Rec: 05/08/18 15:50 [email or web address] [id number]) Nutritional Asmnt/Malnutrition Patient General Information Nutritional Screening High Risk Consult Diagnosis brochitis, possible PNA Pertinent Medical Hx/Surgical Hx no H&P as of 05/08 3:30pm Subjective Information Pt seen lying in bed receiving breathing treatment at time of visit. Per RN, pt kept on NPO status. Consult received for left foot wound. Current Diet Order/ Nutrition Support NPO Pertinent Medications D5-0.45ns, novolog, levmir, culturelle, levothyroxine, vancomycin Pertinent Labs 05/08 Cr 0.6, glucose 150, POC 123-144 05/07 Glucose 197 Nutritional Hx/Data Height 1.7 m Height (Calculated Centimeters) 170.2 Current Weight (lbs) 83.915 kg Weight (Calculated Kilograms) 83.9 Weight (Calculated Grams) 09571.6 Gervais Body Weight 148 Body Mass Index (BMI) 29.0 Weight Status Overweight GI Symptoms Last BM none noted Skin Integrity/Comment: per RN note 05/08: open wound on left foot, and skin irritation with open skin in inner buttocks Current %PO Negligible < 25% Estimated Nutritional Goals BEE in Kcals: Using Current wt Calories/Kcals/Kg 23-27 Kcals Calculated 7671-9006 Protein: Using Current wt Protein g/k Protein Calculated 84 Fluid: ml 1932-226ml (1ml/kcal) Nutritional Problem 1. Problem Problem inadequate energy intake Etiology increased nutrition needs d/t wound Signs/Symptoms: PO on NPO status Intervention/Recommendation Comments 1. Monitor NPO status. Recommend swallow eval before initiating oral diet. Recommend CCHO diet with texture per ST, add Jalen BID for wound healing. 2. Monitor wt, labs and skin integrity 3. F/U as high risk in 2 days. Expected Outcomes/Goals Expected Outcomes/Goals 1. PO intake to meet at least 75% of nutritional needs. 2. Wt stability, skin to heal, labs to approach WNL.
[2018-05-10] MEDS: Meropenem 500 MG in Sodium Chloride 0.9% 100 ML IV SCH ×4 (00:23→23:42)
--- NOTE | 2018-05-10 00:42 | Consultation ---
DATE OF CONSULTATION: 05/08/2018 INFECTIOUS DISEASE CONSULTATION PRIMARY CARE PHYSICIAN: Dr. Cruz. REASON FOR CONSULTATION: Pneumonia. HISTORY OF PRESENT ILLNESS: A 62-year-old male was transferred to Med/Surg with complaint of fever and congestion. The patient was found to have pneumonia. Infectious Disease consultation was called. PAST MEDICAL HISTORY: The patient is unable to provide any meaningful history. Old chart reviewed, pertinent information obtained. Diabetes, seizure disorder and hypothyroidism. FAMILY HISTORY: Negative. SOCIAL HISTORY: Nonsmoker. ALLERGIES: PENICILLIN and MORPHINE. REVIEW OF SYSTEMS: A 14-point review of systems negative except above. PHYSICAL EXAMINATION: GENERAL: Elderly male. VITAL SIGNS: Temperature 98.6, pulse 88, respirations 19 and blood pressure 126/83. HEENT: Mild pallor, no icterus or plaque. NECK: Supple. LUNGS: Breath sounds decreased all over. ABDOMEN: Soft, bowel sounds. LYMPHATIC: No cervical lymph nodes. LABORATORY DATA: White count 13,000, hemoglobin is 10 g and platelets 277. Creatinine 0.6. Serology: Influenza A and B negative. DIAGNOSES: Pneumonia, continue vancomycin and meropenem. Sputum cultures and repeat labs. Rest of the care as ordered in CPOE. Thank you, Dr. Cruz, for this consultation. JOB# [id number]
--- NOTE | 2018-05-10 02:01 | Infectious Disease Prog Note ---
Infectious Disease Subjective - Review of Systems Service Date: 05/09/18 Subjective: pn hpi- pt inf increased wbc decresed ros no efrv o/e vs chaest claer absd soft ext pulse Current Medications Generic Name Dose Route Start Last Admin Trade Name Freq PRN Reason Stop Dose Admin Acetaminophen 650 mg 05/07/18 21:40 Tylenol PO 07/06/18 21:39 Q4HR PRN Pain Or Fever above 101 Acetaminophen 650 mg 05/07/18 23:25 05/08/18 00:15 Tylenol 650mg Supp RC 07/06/18 23:24 650 mg Q6H PRN Administration fever > 100.4 Albuterol/Ipratropium 3 ml 05/07/18 22:11 Duoneb Neb [facility] 07/06/18 22:10 Q2HRT PRN Wheezing Albuterol/Ipratropium 3 ml 05/08/18 19:00 05/09/18 19:16 Duoneb Neb N 07/07/18 18:59 3 ml [id number] ZENA Administration Budesonide 0.5 mg 05/09/18 07:00 05/09/18 11:42 Pulmicort N 07/08/18 06:59 0.5 mg DAILYRT ZENA Administration Clonazepam 0.5 mg 05/08/18 16:04 05/09/18 16:39 Klonopin PO 07/07/18 16:03 0.5 mg BID PRN Administration Agitation Protocol Divalproex Sodium 500 mg 05/08/18 09:00 05/09/18 16:[address] PO 07/07/18 08:59 500 mg BID ZENA Administration Protocol Haloperidol Lactate 5 mg 05/08/18 11:11 05/09/18 21:18 Haldol IM 07/07/18 10:29 5 mg Q6H PRN Administration Agitation Heparin Sodium (Porcine) 5,000 units 05/08/18 21:00 05/09/18 21:18 Heparin SUBQ 07/07/18 20:59 5,000 units Q8HR ZENA Administration Hydrocortisone 10 mg 05/08/18 09:00 05/09/18 17:21 Cortef PO 07/07/18 08:59 10 mg BID ZENA Administration Meropenem 500 mg/ Sodium 100 mls @ 100 mls/hr 05/08/18 00:00 05/10/18 00:23 Chloride IV 07/07/18 00:00 100 mls/hr Q8H ZENA Administration Dextrose/Sodium Chloride 1,000 mls @ 75 mls/hr 05/08/18 14:15 05/09/18 06:46 D5-0.45ns IV 07/07/18 14:14 75 mls/hr .[id number] ZENA Administration Vancomycin HCl 1.5 gm/ Sodium 500 mls @ 250 mls/hr 05/09/18 10:00 05/09/18 17 :24 Chloride IV 07/08/18 09:59 250 mls/hr Q8H ZENA Administration Insulin Aspart 0 units 05/08/18 07:30 05/09/18 21:00 Novolog Insulin Sliding Scale SUBQ 07/07/18 07:29 Not Given ACHS ZENA Protocol Insulin Detemir 12 units 05/08/18 09:00 05/09/18 08:14 Levemir Insulin SUBQ 07/07/18 08:59 12 units DAILY ZENA Administration Protocol Ketorolac Tromethamine 15 mg 05/08/18 16:12 05/09/18 21:18 Toradol IVP 05/13/18 16:11 15 mg Q6HR PRN Administration Pain (Moderate) Lactobacillus Rhamnosus 1 each 05/08/18 14:00 05/09/18 08:12 Culturelle 15b PO 07/07/18 13:59 1 each DAILY ZENA Administration Levothyroxine Sodium 0.075 mg/ 0.175 mg 05/08/18 07:30 05/09/18 06:48 Levothyroxine Sodium 0.1 mg PO 07/07/18 07:29 0.175 mg QDAC ZENA Administration Miscellaneous 1 05/08/18 09:08 Vte Chemical Prophylaxis Screen/ Admission 07/07/18 09:07 PRN PRN PROTOCOL Miscellaneous 1 05/08/18 12:11 Probiotic Screen 07/07/18 12:10 PRN PRN PROTOCOL Miscellaneous 1 05/08/18 18:53 Vancomycin Iv Per Pharmacy 07/07/18 18:52 PRN PRN PROTOCOL Ondansetron HCl 4 mg 05/07/18 23:31 Zofran IV 07/06/18 23:30 Q6H PRN Nausea / Vomiting Quetiapine Fumarate 50 mg 05/09/18 17:00 Seroquel PO 07/08/18 16:59 BID [facility] Protocol Discontinued Medications Generic Name Dose Route Start Last Admin Trade Name Freq PRN Reason Stop Dose Admin Albuterol/Ipratropium 3 ml 05/08/18 01:00 Duoneb [facility] 07/07/18 00:59 Q6HRT ZENA Albuterol/Ipratropium 3 ml 05/08/18 01:00 05/09/18 01:31 Duoneb [facility] 07/07/18 00:59 3 ml Q6HRT ZENA Administration Albuterol/Ipratropium 3 ml 05/08/18 01:00 Duoneb [facility] 07/07/18 00:59 Q6HRT [facility] Budesonide 0.5 mg 05/08/18 07:00 05/09/18 07:18 Pulmicort [facility] 07/07/18 06:59 0.5 mg BIDRT ZENA Administration Haloperidol Lactate 5 mg 05/08/18 10:17 Haldol IVP 07/07/18 10:29 Q6H PRN Agitation Haloperidol Lactate Confirm 05/08/18 11:15 Haldol Administered 05/08/18 11:16 Dose 5 mg .ROUTE .STK-MED ONE Heparin Sodium (Porcine) 5,000 units 05/08/18 09:00 05/08/18 21:27 Heparin SUBQ 07/07/18 08:59 5,000 units Q12HR ZENA Administration Piperacillin Sod/Tazobactam 50 mls @ 100 mls/hr 05/07/18 22:00 Sod 4.5 gm/ Sodium Chloride IV 05/14/18 21:59 Q8HR ZENA Sodium Chloride 1,000 mls @ 80 mls/hr 05/08/18 00:00 05/08/18 00:14 Nacl 0.9% IV 07/07/18 00:00 80 mls/hr .[id number] ZENA Administration Vancomycin HCl 1 gm/ Sodium 250 mls @ 165 mls/hr 05/08/18 00:00 05/08/18 03: 01 Chloride IV 05/08/18 01:30 Infused ONCE ONE Infusion Vancomycin HCl 1.5 gm/ Sodium 500 mls @ 250 mls/hr 05/08/18 10:00 05/09/18 01 :08 Chloride IV 07/07/18 09:59 250 mls/hr Q12H ZENA Administration Vancomycin HCl 1 gm/ Sodium 250 mls @ as directed 05/07/18 11:59 Chloride IV 05/07/18 12:00 .STK-MED ONE Meropenem 500 mg/ Sodium 100 mls @ as directed 05/07/18 11:58 Chloride IV 05/07/18 11:59 .STK-MED ONE Levothyroxine Sodium 0.175 mg 05/08/18 07:30 Synthroid PO 07/07/18 07:29 QDAC ZENA Miscellaneous 1 05/07/18 23:25 Vancomycin Iv Per Pharmacy 07/06/18 23:24 PRN PRN PROTOCOL Miscellaneous 1 05/08/18 18:55 Zosyn Iv Per Pharmacy 07/07/18 18:54 PRN PRN PROTOCOL Miscellaneous 1 05/08/18 18:55 Vancomycin Iv Per Pharmacy 07/06/18 23:24 PRN PRN PROTOCOL Ondansetron HCl 4 mg 05/07/18 23:29 05/08/18 00:15 Zofran IV 05/07/18 23:30 4 mg ONCE ONE Administration Quetiapine Fumarate 50 mg 05/09/18 16:30 05/09/18 16:39 Seroquel PO 05/09/18 16:31 50 mg X1 ONE Administration Protocol Microbiology 05/07/18 22:20 Blood - Preliminary NO GROWTH AFTER 48 HOURS 05/07/18 22:10 Blood - Preliminary NO GROWTH AFTER 48 HOURS 05/09/18 10:15 Sputum - Expectorated Sputum Gram Stain - Final 05/09/18 10:15 Sputum - Expectorated Sputum Sputum Culture - Final 05/08/18 19:40 Sputum - Expectorated Sputum Gram Stain - Final 05/08/18 19:40 Sputum - Expectorated Sputum Sputum Culture - Final Vital Signs - 24 hr 05/09/18 05/09/18 05/09/18 03:41 04:00 05:33 Temp 98.8 F HR 90 RR 18 18 24 BP 122/70 O2 Sat % 97 97 97 05/09/18 05/09/18 05/09/18 07:22 07:35 08:00 Temp 98.6 F HR 94 92 78 RR 20 20 18 BP 136/86 O2 Sat % 96 96 97 05/09/18 05/09/18 05/09/18 10:00 11:44 11:47 Temp 98.6 F 98.7 F HR 78 91 97 RR 18 20 18 BP 136/86 155/92 O2 Sat % 96 95 05/09/18 05/09/18 05/09/18 12:00 14:00 15:43 Temp 98.7 F 98.5 F HR 97 80 97 RR 18 18 20 BP 155/92 145/85 O2 Sat % 98 05/09/18 05/09/18 05/09/18 15:56 16:00 18:00 Temp 98.8 F 98.8 F 98.5 F HR 97 97 90 RR 18 18 18 BP 159/91 159/91 150/80 O2 Sat % 97 05/09/18 05/09/18 05/09/18 19:18 20:00 21:05 Temp 98.2 F HR 90 88 RR 18 19 22 BP 132/86 O2 Sat % 97 96 100 05/09/18 05/10/18 05/10/18 22:40 00:00 00:45 Temp 98.6 F HR 84 RR 20 19 22 BP 136/88 O2 Sat % 98 96 99 Diagnoses TYPE 2 DIABETES MELLITUS WITHOUT COMPLICATIONS (05/07/18) UNSPECIFIED DEMENTIA WITHOUT BEHAVIORAL DISTURBANCE (05/07/18) PNEUMONIA, UNSPECIFIED ORGANISM (05/07/18) DYSPHAGIA, UNSPECIFIED (05/07/18) WEAKNESS (05/07/18) Infectious Disease Objective - Results Result Diagrams: 05/09/18 04:30 05/09/18 04:30 Recent Labs: Laboratory Last Values WBC 8.0 Th/cmm (4.8-10.8) D 05/09/18 04:30 RBC 3.28 Mil/cmm (4.30-5.70) L 05/09/18 04:30 Hgb 9.8 gm/dL (12-16) L 05/09/18 04:30 Hct 30.3 % (41.0-60) L 05/09/18 04:30 MCV 92.3 fl (80-99) 05/09/18 04:30 MCH 29.9 pg (26.0-30.0) 05/09/18 04:30 MCHC Differential 32.4 pg (28.0-36.0) 05/09/18 04:30 RDW 15.0 % (11.5-20.0) 05/09/18 04:30 Plt Count 258 Th/cmm (150-400) 05/09/18 04:30 MPV 7.3 fl 05/09/18 04:30 Add Manual Diff YES 05/08/18 06:10 Neutrophils % 73.3 % (40.0-80.0) 05/09/18 04:30 Band Neutrophils % 3 % (0-10) 05/08/18 06:10 Lymphocytes % 13.5 % (20.0-50.0) L 05/09/18 04:30 Monocytes % 11.5 % (2.0-10.0) H 05/09/18 04:30 Eosinophils % 1.1 % (0.0-5.0) 05/09/18 04:30 Basophils % 0.6 % (0.0-2.0) 05/09/18 04:30 Neutrophils (Manual) 81 % (40-80) H 05/08/18 06:10 Lymphocytes 10 % (20-50) L 05/08/18 06:10 Monocytes 6 % (2-10) 05/08/18 06:10 Eosinophils 0 % (0-5) 05/08/18 06:10 Basophils 0 % (0-3) 05/08/18 06:10 Platelet Estimate ADEQUATE (NORMAL) 05/07/18 22:10 PT 11.7 SECONDS (9.5-11.5) H 05/09/18 04:30 INR 1.14 (0.5-1.4) 05/09/18 04:30 PTT (Actin FS) 31.9 SECONDS (26.0-38.0) 05/09/18 04:30 Specimen Source Arterial 05/09/18 09:41 Sample Site Right Radial 05/09/18 09:41 pH 7.43 (7.35-7.45) 05/09/18 09:41 pCO2 44.0 mmHg (35.0-45.0) 05/09/18 09:41 pO2 75.0 mmHg (80.0-100.0) L 05/09/18 09:41 HCO3 28.2 mEq/L (20.0-26.0) H 05/09/18 09:41 Base Excess 4.3 mEq/L (-3.0-3.0) H 05/09/18 09:41 O2 Saturation 95.0 % (92.0-100.0) 05/09/18 09:41 Abilio Test Positive 05/09/18 09:41 Vent Rate NA 05/09/18 09:41 Inspired O2 28 05/09/18 09:41 Tidal Volume NA 05/09/18 09:41 PEEP NA 05/09/18 09:41 Pressure (ins/psv/peep) NA 05/09/18 09:41 Critical Value LZHANG 05/09/18 09:41 Sodium 140 mEq/L (136-145) 05/09/18 04:30 Potassium 3.1 mEq/L (3.5-5.1) L 05/09/18 04:30 Chloride 106 mEq/L (98-107) 05/09/18 04:30 Carbon Dioxide 28.0 mEq/L (21.0-31.0) 05/09/18 04:30 Anion Gap 9.1 (7.0-16.0) 05/09/18 04:30 BUN 10 mg/dL (7-25) 05/09/18 04:30 Creatinine 0.4 mg/dL (0.7-1.3) L 05/09/18 04:30 Est GFR ( Amer) > 60.0 ml/min (>90) 05/09/18 04:30 Est GFR (Non-Af Amer) > 60.0 ml/min 05/09/18 04:30 BUN/Creatinine Ratio 25.0 05/09/18 04:30 Glucose 103 mg/dL (70-105) 05/09/18 04:30 POC Glucose 93 MG/DL (70 - 105) 05/09/18 21:08 Whole Bld Lactic Acid 0.99 mmol/L (0.60-1.99) 05/07/18 22:10 Calcium 8.9 mg/dL (8.6-10.3) 05/09/18 04:30 Magnesium 1.8 mg/dL (1.9-2.7) L 05/09/18 04:30 Total Bilirubin 0.4 mg/dL (0.3-1.0) 05/09/18 04:30 AST 17 U/L (13-39) 05/09/18 04:30 ALT 27 U/L (7-52) 05/09/18 04:30 Alkaline Phosphatase 72 U/L (34-104) 05/09/18 04:30 Ammonia 67 umol/L (16-53) H 05/09/18 04:30 Total Protein 5.9 gm/dL (6.0-8.3) L 05/09/18 04:30 Albumin 2.9 gm/dL (4.2-5.5) L 05/09/18 04:30 Globulin 3.0 gm/dL 05/09/18 04:30 Albumin/Globulin Ratio 1.0 (1.0-1.8) 05/09/18 04:30 TSH 9.60 uIU/ml (0.34-5.60) H 05/09/18 04:30 Urine Source CLEAN C 05/09/18 05:35 Urine Color YELLOW 05/09/18 05:35 Urine Clarity CLEAR (CLEAR) 05/09/18 05:35 Urine pH 7.0 (4.6 - 8.0) 05/09/18 05:35 Ur Specific [place] 1.025 (1.005-1.030) 05/09/18 05:35 Urine Protein NEGATIVE mg/dL (NEGATIVE) 05/09/18 05:35 Urine Glucose (UA) NEGATIVE mg/dL (NEGATIVE) 05/09/18 05:35 Urine Ketones TRACE mg/dL (NEGATIVE) 05/09/18 05:35 Urine Blood NEGATIVE (NEGATIVE) 05/09/18 05:35 Urine Nitrate NEGATIVE (NEGATIVE) 05/09/18 05:35 Urine Bilirubin NEGATIVE (NEGATIVE) 05/09/18 05:35 Urine Urobilinogen 4.0 E.U./dL (0.2 - 1.0) H 05/09/18 05:35 Ur Leukocyte Esterase NEGATIVE (NEGATIVE) 05/09/18 05:35 Urine RBC 0-2 /hpf (0-5) H 05/09/18 05:35 Urine WBC 0-2 /hpf (0-5) 05/09/18 05:35 Ur Epithelial Cells FEW /lpf (FEW) 05/09/18 05:35 Urine Bacteria NONE SEEN /hpf (NONE SEEN) 05/09/18 05:35 Vancomycin Trough 11.5 ug/mL (5-10) H 05/09/18 09:00 Influenza A (Rapid) NEG FOR INF A 05/08/18 01:00 Influenza B (Rapid) NEG FOR INF B 05/08/18 01:00 - Physical Exam Vitals and I&O: Vital Signs Temp 98.6 F 05/10/18 00:00 Pulse 84 05/10/18 00:00 Resp 22 05/10/18 00:45 BP 136/88 05/10/18 00:00 Pulse Ox 99 05/10/18 00:45 Intake & Output 05/09/18 05/09/18 05/10/18 06:59 18:59 06:59 Intake Total 1340 700 Balance 1340 700 Weight (lbs) 83.915 kg Intake: Intake, IV Amount 1100 700 D5-0.45NS 1,000 ml @ 75 1000 mls/hr IV .[id number] [facility] Rx #:[id number] Meropenem 500 mg In 100 200 Sodium Chloride 0.9% 100 ml @ 100 mls/hr IV Q8H [facility] Rx#:[id number] Vancomycin HCl 1.5 gm In 500 Sodium Chloride 0.9% 500 ml @ 250 mls/hr IV Q8H [facility] Rx#:[id number] Oral 0 Tube Feeding 240 Other: # Voids 3 # Bowel Movements 0 Weight Source Bedscale Active Medications: Current Medications Acetaminophen (Tylenol) 650 mg PO Q4HR PRN PRN Reason: Pain Or Fever above 101 Stop: 07/06/18 21:39 Acetaminophen (Tylenol 650mg Supp) 650 mg RC Q6H PRN PRN Reason: fever > 100.4 Stop: 07/06/18 23:24 Last Admin: 05/08/18 00:15 Dose: 650 mg Albuterol/Ipratropium (Duoneb Neb) 3 ml HHN Q2HRT PRN PRN Reason: Wheezing Stop: 07/06/18 22:10 Albuterol/Ipratropium (Duoneb Neb) 3 ml HHN [id number] [facility] Stop: 07/07/18 18:59 Last Admin: 05/09/18 19:16 Dose: 3 ml Budesonide (Pulmicort) 0.5 mg HHN DAILYRT [facility] Stop: 07/08/18 06:59 Last Admin: 05/09/18 11:42 Dose: 0.5 mg Clonazepam (Klonopin) 0.5 mg PO BID PRN; Protocol PRN Reason: Agitation Stop: 07/07/18 16:03 Last Admin: 05/09/18 16:39 Dose: 0.5 mg Divalproex Sodium (Depakote Dr) 500 mg PO BID [facility]; Protocol Stop: 07/07/18 08:59 Last Admin: 05/09/18 16:39 Dose: 500 mg Haloperidol Lactate (Haldol) 5 mg IM Q6H PRN PRN Reason: Agitation Stop: 07/07/18 10:29 Last Admin: 05/09/18 21:18 Dose: 5 mg Heparin Sodium (Porcine) (Heparin) 5,000 units SUBQ Q8HR [facility] Stop: 07/07/18 20:59 Last Admin: 05/09/18 21:18 Dose: 5,000 units Hydrocortisone (Cortef) 10 mg PO BID [facility] Stop: 07/07/18 08:59 Last Admin: 05/09/18 17:21 Dose: 10 mg Meropenem 500 mg/ Sodium (Chloride) 100 mls @ 100 mls/hr IV Q8H [facility] Stop: 07/07/18 00:00 Last Admin: 05/10/18 00:23 Dose: 100 mls/hr Dextrose/Sodium Chloride (D5-0.45ns) 1,000 mls @ 75 mls/hr IV .[id number] [facility] Stop: 07/07/18 14:14 Last Admin: 05/09/18 06:46 Dose: 75 mls/hr Vancomycin HCl 1.5 gm/ Sodium (Chloride) 500 mls @ 250 mls/hr IV Q8H [facility] Stop: 07/08/18 09:59 Last Admin: 05/09/18 17:24 Dose: 250 mls/hr Insulin Aspart (Novolog Insulin Sliding Scale) 0 units SUBQ ACHS [facility]; Protocol Stop: 07/07/18 07:29 Last Admin: 05/09/18 21:00 Dose: Not Given Insulin Detemir (Levemir Insulin) 12 units SUBQ DAILY [facility]; Protocol Stop: 07/07/18 08:59 Last Admin: 05/09/18 08:14 Dose: 12 units Ketorolac Tromethamine (Toradol) 15 mg IVP Q6HR PRN PRN Reason: Pain (Moderate) Stop: 05/13/18 16:11 Last Admin: 05/09/18 21:18 Dose: 15 mg Lactobacillus Rhamnosus (Culturelle 15b) 1 each PO DAILY [facility] Stop: 07/07/18 13:59 Last Admin: 05/09/18 08:12 Dose: 1 each Levothyroxine Sodium 0.075 mg/ (Levothyroxine Sodium 0.1 mg) 0.175 mg PO QDAC [facility] Stop: 07/07/18 07:29 Last Admin: 05/09/18 06:48 Dose: 0.175 mg Miscellaneous (Vte Chemical Prophylaxis Screen/ Admission) 1 ea PRN PRN PRN Reason: PROTOCOL Stop: 07/07/18 09:07 Miscellaneous (Probiotic Screen) 1 ea PRN PRN PRN Reason: PROTOCOL Stop: 07/07/18 12:10 Miscellaneous (Vancomycin Iv Per Pharmacy) 1 ea PRN PRN PRN Reason: PROTOCOL Stop: 07/07/18 18:52 Ondansetron HCl (Zofran) 4 mg IV Q6H PRN PRN Reason: Nausea / Vomiting Stop: 07/06/18 23:30 Quetiapine Fumarate (Seroquel) 50 mg PO BID [facility]; Protocol Stop: 07/08/18 16:59 Nutritional Asmnt/Malnutr-PDOC - Dietary Evaluation Malnutrition Findings (Please click <Entered> for more info): Nutritional Asmnt/Malnutrition Start: 05/08/18 15: 33 Text: Status: Complete Freq: Protocol: Document 05/08/18 15:33 LCHENG (Rec: 05/08/18 15:50 [email or web address] [id number]) Nutritional Asmnt/Malnutrition Patient General Information Nutritional Screening High Risk Consult Diagnosis brochitis, possible PNA Pertinent Medical Hx/Surgical Hx no H&P as of 05/08 3:30pm Subjective Information Pt seen lying in bed receiving breathing treatment at time of visit. Per RN, pt kept on NPO status. Consult received for left foot wound. Current Diet Order/ Nutrition Support NPO Pertinent Medications D5-0.45ns, novolog, levmir, culturelle, levothyroxine, vancomycin Pertinent Labs 05/08 Cr 0.6, glucose 150, POC 123-144 1/ Glucose 197 Nutritional Hx/Data Height 1.7 m Height (Calculated Centimeters) 170.2 Current Weight (lbs) 83.915 kg Weight (Calculated Kilograms) 83.9 Weight (Calculated Grams) 84996.6 [place] Body Weight 148 Body Mass Index (BMI) 29.0 Weight Status Overweight GI Symptoms Last BM none noted Skin Integrity/Comment: per RN note 05/08: open wound on left foot, and skin irritation with open skin in inner buttocks Current %PO Negligible < 25% Estimated Nutritional Goals BEE in Kcals: Using Current wt Calories/Kcals/Kg 23-27 Kcals Calculated [id number] Protein: Using Current wt Protein g/k Protein Calculated 84 Fluid: ml [id number] (1ml/kcal) Nutritional Problem 1. Problem Problem inadequate energy intake Etiology increased nutrition needs d/t wound Signs/Symptoms: PO on NPO status Intervention/Recommendation Comments 1. Monitor NPO status. Recommend swallow eval before initiating oral diet. Recommend CCHO diet with texture per ST, add Jalen BID for wound healing. 2. Monitor wt, labs and skin integrity 3. F/U as high risk in 2 days. Expected Outcomes/Goals Expected Outcomes/Goals 1. PO intake to meet at least 75% of nutritional needs. 2. Wt stability, skin to heal, labs to approach WNL.
[2018-05-10] MEDS: Vancomycin HCl 1.5 GM in Sodium Chloride 0.9% 500 ML IV SCH ×2 (02:44→10:10)
[2018-05-10] MEDS: Budesonide 0.5 Mg/2 mL Ud HHN SCH (06:57)
[2018-05-10] MEDS: Albuterol/Ipratropium Neb 3 ML AERS HHN SCH ×4 (06:57→19:23)
[2018-05-10] MEDS: D5-0.45NS 1,000 ML IV SCH ×2 (07:08→23:45)
[2018-05-10] MEDS: INSULIN ASPART SLIDING SCALE 100 UNITS/ML UNIT SUBQ SCH ×4 (07:29→20:48)
[2018-05-10] MEDS: Lactobacillus Rhamnosus GG 15 Billion CFU CAP.SPRINK PO SCH (09:01)
[2018-05-10] MEDS: Insulin Detemir 100 units/mL 10mL Vial SUBQ SCH (09:02)
[2018-05-10 09:05] LABS: ANION GAP 10.6 (7.0-16.0); BUN - UREA NITROGEN 4 mg/dL (7-25); CALCIUM SERUM 9.3 mg/dL (8.6-10.3); CARBON DIOXIDE 29.4 mEq/L (21.0-31.0); CHLORIDE 105 mEq/L (98-107); CREATININE - SERUM 0.4 mg/dL (0.7-1.3); GFR AFRICAN-AMERICAN > 60.0 ml/min (>90); GFR NON AFRICAN-AMERICAN > 60.0 ml/min; GLUCOSE 115 mg/dL (70-105); SODIUM SERUM 142 mEq/L (136-145)
[2018-05-10 09:43] LABS: ALLEN TEST YES; pH 7.48 (7.35-7.45)
[2018-05-10] MEDS ORDERED: Potassium Chloride 20 mEq ER Tab PO ONE (12:00)
--- NOTE | 2018-05-10 14:56 | Progress Notes ---
DATE: 05/10/2018 PULMONARY PROGRESS NOTE SUBJECTIVE: The patient is more calmer, periodically ____, currently on nasal O2. He is awake, at times appropriately answers the questions. OBJECTIVE: VITAL SIGNS: The patient's temperature is 99.2, blood pressure 142/90, saturation in the 90s on 2 liters per minute. NECK: Veins not visualized. CHEST: Shows diminished air entry with occasional rhonchi. HEART: Regular. ABDOMEN: Soft, nontender. LABORATORY DATA: ABG shows pO2 of 57 on room air. Electrolytes are okay, except potassium is 3.0. IMPRESSION: The patient clinically appears to be slightly better, improving. PLANS AND SUGGESTIONS: Continue current treatment. Consideration for long-term acute. We will discuss with primary. JOB# [id number]
--- NOTE | 2018-05-10 16:43 | Progress Notes ---
DATE: 05/10/2018 SUBJECTIVE: The patient is currently in the hospital. Still aggressive, agitated, yelling, screaming, and talking about his mom, yelling for his mom over and over again. The patient noted to be in restraints and is not stable yet, unable to place him because he is still yelling and screaming. ASSESSMENT: The patient symptomatic, yelling, screaming, not stable for discharge. I will be increasing his Klonopin dosing today. JOB# [id number]
[2018-05-10] MEDS: POLYETHYLENE GLYCOL 3350 17 GM PACK PO SCH (17:09)
[2018-05-11] MEDS: Vancomycin HCl 1.5 GM in Sodium Chloride 0.9% 500 ML IV SCH ×2 (02:00→11:22)
--- NOTE | 2018-05-11 02:51 | Infectious Disease Prog Note ---
Infectious Disease Subjective - Review of Systems Service Date: 05/10/18 Subjective: pn hpi- pt inf increased wbc decresed cx noted ros no efrv o/e vs chaest claer absd soft ext pulse Current Medications Generic Name Dose Route Start Last Admin Trade Name Freq PRN Reason Stop Dose Admin Acetaminophen 650 mg 05/07/18 21:40 Tylenol PO 07/06/18 21:39 Q4HR PRN Pain Or Fever above 101 Acetaminophen 650 mg 05/07/18 23:25 05/08/18 00:15 Tylenol 650mg Supp RC 07/06/18 23:24 650 mg Q6H PRN Administration fever > 100.4 Albuterol/Ipratropium 3 ml 05/07/18 22:11 Duoneb Neb [facility] 07/06/18 22:10 Q2HRT PRN Wheezing Albuterol/Ipratropium 3 ml 05/08/18 19:00 05/09/18 19:16 Duoneb Neb N 07/07/18 18:59 3 ml [id number] Administration Budesonide 0.5 mg 05/09/18 07:00 05/09/18 11:42 Pulmicort HHN 07/08/18 06:59 0.5 mg DAILYRT ZENA Administration Clonazepam 0.5 mg 05/08/18 16:04 05/09/18 16:39 Klonopin PO 07/07/18 16:03 0.5 mg BID PRN Administration Agitation Protocol Divalproex Sodium 500 mg 05/08/18 09:00 05/09/18 16:[address] PO 07/07/18 08:59 500 mg BID ZENA Administration Protocol Haloperidol Lactate 5 mg 05/08/18 11:11 05/09/18 21:18 Haldol IM 07/07/18 10:29 5 mg Q6H PRN Administration Agitation Heparin Sodium (Porcine) 5,000 units 05/08/18 21:00 05/09/18 21:18 Heparin SUBQ 07/07/18 20:59 5,000 units Q8HR ZENA Administration Hydrocortisone 10 mg 05/08/18 09:00 05/09/18 17:21 Cortef PO 07/07/18 08:59 10 mg BID ZENA Administration Meropenem 500 mg/ Sodium 100 mls @ 100 mls/hr 05/08/18 00:00 05/10/18 00:23 Chloride IV 07/07/18 00:00 100 mls/hr Q8H ZENA Administration Dextrose/Sodium Chloride 1,000 mls @ 75 mls/hr 05/08/18 14:15 05/09/18 06:46 D5-0.45ns IV 07/07/18 14:14 75 mls/hr .[id number] ZENA Administration Vancomycin HCl 1.5 gm/ Sodium 500 mls @ 250 mls/hr 05/09/18 10:00 05/09/18 17 :24 Chloride IV 07/08/18 09:59 250 mls/hr Q8H ZENA Administration Insulin Aspart 0 units 05/08/18 07:30 05/09/18 21:00 Novolog Insulin Sliding Scale SUBQ 07/07/18 07:29 Not Given ACHS ZENA Protocol Insulin Detemir 12 units 05/08/18 09:00 05/09/18 08:14 Levemir Insulin SUBQ 07/07/18 08:59 12 units DAILY ZENA Administration Protocol Ketorolac Tromethamine 15 mg 05/08/18 16:12 05/09/18 21:18 Toradol IVP 05/13/18 16:11 15 mg Q6HR PRN Administration Pain (Moderate) Lactobacillus Rhamnosus 1 each 05/08/18 14:00 05/09/18 08:12 Culturelle 15b PO 07/07/18 13:59 1 each DAILY ZENA Administration Levothyroxine Sodium 0.075 mg/ 0.175 mg 05/08/18 07:30 05/09/18 06:48 Levothyroxine Sodium 0.1 mg PO 07/07/18 07:29 0.175 mg QDAC ZENA Administration Miscellaneous 1 05/08/18 09:08 Vte Chemical Prophylaxis Screen/ Admission 07/07/18 09:07 PRN PRN PROTOCOL Miscellaneous 1 05/08/18 12:11 Probiotic Screen 07/07/18 12:10 PRN PRN PROTOCOL Miscellaneous 1 05/08/18 18:53 Vancomycin Iv Per Pharmacy 07/07/18 18:52 PRN PRN PROTOCOL Ondansetron HCl 4 mg 05/07/18 23:31 Zofran IV 07/06/18 23:30 Q6H PRN Nausea / Vomiting Quetiapine Fumarate 50 mg 05/09/18 17:00 Seroquel PO 07/08/18 16:59 BID [facility] Protocol Discontinued Medications Generic Name Dose Route Start Last Admin Trade Name Freq PRN Reason Stop Dose Admin Albuterol/Ipratropium 3 ml 05/08/18 01:00 Duoneb [facility] 07/07/18 00:59 Q6HRT ZENA Albuterol/Ipratropium 3 ml 05/08/18 01:00 05/09/18 01:31 Duoneb Neb [facility] 07/07/18 00:59 3 ml Q6HRT ZENA Administration Albuterol/Ipratropium 3 ml 05/08/18 01:00 Duoneb Neb [facility] 07/07/18 00:59 Q6HRT [facility] Budesonide 0.5 mg 05/08/18 07:00 05/09/18 07:18 Pulmicort [facility] 07/07/18 06:59 0.5 mg BIDRT ZENA Administration Haloperidol Lactate 5 mg 05/08/18 10:17 Haldol IVP 07/07/18 10:29 Q6H PRN Agitation Haloperidol Lactate Confirm 05/08/18 11:15 Haldol Administered 05/08/18 11:16 Dose 5 mg .ROUTE .STK-MED ONE Heparin Sodium (Porcine) 5,000 units 05/08/18 09:00 05/08/18 21:27 Heparin SUBQ 07/07/18 08:59 5,000 units Q12HR ZENA Administration Piperacillin Sod/Tazobactam 50 mls @ 100 mls/hr 05/07/18 22:00 Sod 4.5 gm/ Sodium Chloride IV 05/14/18 21:59 Q8HR ZENA Sodium Chloride 1,000 mls @ 80 mls/hr 05/08/18 00:00 05/08/18 00:14 Nacl 0.9% IV 07/07/18 00:00 80 mls/hr .[id number] ZENA Administration Vancomycin HCl 1 gm/ Sodium 250 mls @ 165 mls/hr 05/08/18 00:00 05/08/18 03: 01 Chloride IV 05/08/18 01:30 Infused ONCE ONE Infusion Vancomycin HCl 1.5 gm/ Sodium 500 mls @ 250 mls/hr 05/08/18 10:00 05/09/18 01 :08 Chloride IV 07/07/18 09:59 250 mls/hr Q12H ZENA Administration Vancomycin HCl 1 gm/ Sodium 250 mls @ as directed 05/07/18 11:59 Chloride IV 05/07/18 12:00 .STK-MED ONE Meropenem 500 mg/ Sodium 100 mls @ as directed 05/07/18 11:58 Chloride IV 05/07/18 11:59 .STK-MED ONE Levothyroxine Sodium 0.175 mg 05/08/18 07:30 Synthroid PO 07/07/18 07:29 QDAC ZENA Miscellaneous 1 ea 05/07/18 23:25 Vancomycin Iv Per Pharmacy 07/06/18 23:24 PRN PRN PROTOCOL Miscellaneous 1 05/08/18 18:55 Zosyn Iv Per Pharmacy 07/07/18 18:54 PRN PRN PROTOCOL Miscellaneous 1 05/08/18 18:55 Vancomycin Iv Per Pharmacy 07/06/18 23:24 PRN PRN PROTOCOL Ondansetron HCl 4 mg 05/07/18 23:29 05/08/18 00:15 Zofran IV 05/07/18 23:30 4 mg ONCE ONE Administration Quetiapine Fumarate 50 mg 05/09/18 16:30 05/09/18 16:39 Seroquel PO 05/09/18 16:31 50 mg X1 ONE Administration Protocol Microbiology 05/07/18 22:20 Blood - Preliminary NO GROWTH AFTER 48 HOURS 05/07/18 22:10 Blood - Preliminary NO GROWTH AFTER 48 HOURS 05/09/18 10:15 Sputum - Expectorated Sputum Gram Stain - Final 05/09/18 10:15 Sputum - Expectorated Sputum Sputum Culture - Final 05/08/18 19:40 Sputum - Expectorated Sputum Gram Stain - Final 05/08/18 19:40 Sputum - Expectorated Sputum Sputum Culture - Final Vital Signs - 24 hr 05/09/18 05/09/18 05/09/18 03:41 04:00 05:33 Temp 98.8 F HR 90 RR 18 18 24 BP 122/70 O2 Sat % 97 97 97 05/09/18 05/09/18 05/09/18 07:22 07:35 08:00 Temp 98.6 F HR 94 92 78 RR 20 20 18 BP 136/86 O2 Sat % 96 96 97 01/08/19 01/08/19 01/08/19 10:00 11:44 11:47 Temp 98.6 F 98.7 F HR 78 91 97 RR 18 20 18 BP 136/86 155/92 O2 Sat % 96 95 05/09/18 05/09/18 05/09/18 12:00 14:00 15:43 Temp 98.7 F 98.5 F HR 97 80 97 RR 18 18 20 BP 155/92 145/85 O2 Sat % 98 05/09/18 05/09/18 05/09/18 15:56 16:00 18:00 Temp 98.8 F 98.8 F 98.5 F HR 97 97 90 RR 18 18 18 BP 159/91 159/91 150/80 O2 Sat % 97 05/09/18 05/09/18 05/09/18 19:18 20:00 21:05 Temp 98.2 F HR 90 88 RR 18 19 22 BP 132/86 O2 Sat % 97 96 100 05/09/18 05/10/18 05/10/18 22:40 00:00 00:45 Temp 98.6 F HR 84 RR 20 19 22 BP 136/88 O2 Sat % 98 96 99 Diagnoses TYPE 2 DIABETES MELLITUS WITHOUT COMPLICATIONS (05/07/18) UNSPECIFIED DEMENTIA WITHOUT BEHAVIORAL DISTURBANCE (05/07/18) PNEUMONIA, UNSPECIFIED ORGANISM (05/07/18) DYSPHAGIA, UNSPECIFIED (05/07/18) WEAKNESS (05/07/18) Infectious Disease Objective - Results Result Diagrams: 05/09/18 04:30 05/10/18 09:00 Recent Labs: Laboratory Last Values WBC 8.0 Th/cmm (4.8-10.8) D 05/09/18 04:30 RBC 3.28 Mil/cmm (4.30-5.70) L 05/09/18 04:30 Hgb 9.8 gm/dL (12-16) L 05/09/18 04:30 Hct 30.3 % (41.0-60) L 05/09/18 04:30 MCV 92.3 fl (80-99) 05/09/18 04:30 MCH 29.9 pg (26.0-30.0) 05/09/18 04:30 MCHC Differential 32.4 pg (28.0-36.0) 05/09/18 04:30 RDW 15.0 % (11.5-20.0) 05/09/18 04:30 Plt Count 258 Th/cmm (150-400) 05/09/18 04:30 MPV 7.3 fl 05/09/18 04:30 Add Manual Diff YES 05/08/18 06:10 Neutrophils % 73.3 % (40.0-80.0) 05/09/18 04:30 Band Neutrophils % 3 % (0-10) 05/08/18 06:10 Lymphocytes % 13.5 % (20.0-50.0) L 05/09/18 04:30 Monocytes % 11.5 % (2.0-10.0) H 05/09/18 04:30 Eosinophils % 1.1 % (0.0-5.0) 05/09/18 04:30 Basophils % 0.6 % (0.0-2.0) 05/09/18 04:30 Neutrophils (Manual) 81 % (40-80) H 05/08/18 06:10 Lymphocytes 10 % (20-50) L 05/08/18 06:10 Monocytes 6 % (2-10) 05/08/18 06:10 Eosinophils 0 % (0-5) 05/08/18 06:10 Basophils 0 % (0-3) 05/08/18 06:10 Platelet Estimate ADEQUATE (NORMAL) 05/07/18 22:10 PT 11.7 SECONDS (9.5-11.5) H 05/09/18 04:30 INR 1.14 (0.5-1.4) 05/09/18 04:30 PTT (Actin FS) 31.9 SECONDS (26.0-38.0) 05/09/18 04:30 Specimen Source Arterial 05/10/18 09:35 Sample Site Right Radial 05/10/18 09:35 pH 7.48 (7.35-7.45) H 05/10/18 09:35 pCO2 40.0 mmHg (35.0-45.0) 05/10/18 09:35 pO2 57.0 mmHg (80.0-100.0) L 05/10/18 09:35 HCO3 29.3 mEq/L (20.0-26.0) H 05/10/18 09:35 Base Excess 5.8 mEq/L (-3.0-3.0) H 05/10/18 09:35 O2 Saturation 91.0 % (92.0-100.0) L 05/10/18 09:35 Abilio Test YES 05/10/18 09:35 Vent Rate NA 05/10/18 09:35 Inspired O2 21 05/10/18 09:35 Tidal Volume NA 05/10/18 09:35 PEEP NA 05/10/18 09:35 Pressure (ins/psv/peep) NA 05/10/18 09:35 Critical Value E.SOLIS 05/10/18 09:35 Sodium 142 mEq/L (136-145) 05/10/18 09:00 Potassium 3.0 mEq/L (3.5-5.1) L 05/10/18 09:00 Chloride 105 mEq/L (98-107) 05/10/18 09:00 Carbon Dioxide 29.4 mEq/L (21.0-31.0) 05/10/18 09:00 Anion Gap 10.6 (7.0-16.0) 05/10/18 09:00 BUN 4 mg/dL (7-25) L 05/10/18 09:00 Creatinine 0.4 mg/dL (0.7-1.3) L 05/10/18 09:00 Est GFR ( Amer) > 60.0 ml/min (>90) 05/10/18 09:00 Est GFR (Non-Af Amer) > 60.0 ml/min 05/10/18 09:00 BUN/Creatinine Ratio 10.0 05/10/18 09:00 Glucose 115 mg/dL (70-105) H 05/10/18 09:00 POC Glucose 176 MG/DL (70 - 105) H 05/10/18 20:46 Whole Bld Lactic Acid 0.99 mmol/L (0.60-1.99) 05/07/18 22:10 Calcium 9.3 mg/dL (8.6-10.3) 05/10/18 09:00 Magnesium 1.8 mg/dL (1.9-2.7) L 05/09/18 04:30 Total Bilirubin 0.4 mg/dL (0.3-1.0) 05/09/18 04:30 AST 17 U/L (13-39) 05/09/18 04:30 ALT 27 U/L (7-52) 05/09/18 04:30 Alkaline Phosphatase 72 U/L (34-104) 05/09/18 04:30 Ammonia 36 umol/L (16-53) 05/10/18 09:00 Total Protein 5.9 gm/dL (6.0-8.3) L 05/09/18 04:30 Albumin 2.9 gm/dL (4.2-5.5) L 05/09/18 04:30 Globulin 3.0 gm/dL 05/09/18 04:30 Albumin/Globulin Ratio 1.0 (1.0-1.8) 05/09/18 04:30 Free T3 1.2 pg/mL (2.0-4.4) L 05/09/18 04:30 TSH 9.60 uIU/ml (0.34-5.60) H 05/09/18 04:30 Urine Source CLEAN C 05/09/18 05:35 Urine Color YELLOW 05/09/18 05:35 Urine Clarity CLEAR (CLEAR) 05/09/18 05:35 Urine pH 7.0 (4.6 - 8.0) 05/09/18 05:35 Ur Specific [place] 1.025 (1.005-1.030) 05/09/18 05:35 Urine Protein NEGATIVE mg/dL (NEGATIVE) 05/09/18 05:35 Urine Glucose (UA) NEGATIVE mg/dL (NEGATIVE) 05/09/18 05:35 Urine Ketones TRACE mg/dL (NEGATIVE) 05/09/18 05:35 Urine Blood NEGATIVE (NEGATIVE) 05/09/18 05:35 Urine Nitrate NEGATIVE (NEGATIVE) 05/09/18 05:35 Urine Bilirubin NEGATIVE (NEGATIVE) 05/09/18 05:35 Urine Urobilinogen 4.0 E.U./dL (0.2 - 1.0) H 05/09/18 05:35 Ur Leukocyte Esterase NEGATIVE (NEGATIVE) 05/09/18 05:35 Urine RBC 0-2 /hpf (0-5) H 05/09/18 05:35 Urine WBC 0-2 /hpf (0-5) 05/09/18 05:35 Ur Epithelial Cells FEW /lpf (FEW) 05/09/18 05:35 Urine Bacteria NONE SEEN /hpf (NONE SEEN) 05/09/18 05:35 Vancomycin Trough 17.6 ug/mL (5-10) H 05/10/18 09:00 Influenza A (Rapid) NEG FOR INF A 05/08/18 01:00 Influenza B (Rapid) NEG FOR INF B 05/08/18 01:00 - Physical Exam Vitals and I&O: Vital Signs Temp 97.9 F 05/11/18 00:00 Pulse 87 05/11/18 00:00 Resp 31 05/11/18 02:14 BP 134/89 05/11/18 00:00 Pulse Ox 97 05/11/18 02:14 Intake & Output 05/10/18 05/10/18 05/11/18 06:59 18:59 06:59 Intake Total 2100 1300 1100 Balance 2100 1300 1100 Weight (lbs) 83.915 kg Intake: Intake, IV Amount 2100 700 1100 D5-0.45NS 1,000 ml @ 75 1000 1000 mls/hr IV .[id number] [facility] Rx #:[id number] Meropenem 500 mg In 100 200 100 Sodium Chloride 0.9% 100 ml @ 100 mls/hr IV Q8H [facility] Rx#:[id number] Vancomycin HCl 1.5 gm In 1000 500 Sodium Chloride 0.9% 500 ml @ 250 mls/hr IV Q8H [facility] Rx#:[id number] Oral 600 Other: # Voids 3 # Bowel Movements 0 Weight Source Bedscale Active Medications: Current Medications Acetaminophen (Tylenol) 650 mg PO Q4HR PRN PRN Reason: Pain Or Fever above 101 Stop: 07/06/18 21:39 Acetaminophen (Tylenol 650mg Supp) 650 mg RC Q6H PRN PRN Reason: fever > 100.4 Stop: 07/06/18 23:24 Last Admin: 05/08/18 00:15 Dose: 650 mg Albuterol/Ipratropium (Duoneb Neb) 3 ml HHN Q2HRT PRN PRN Reason: Wheezing Stop: 07/06/18 22:10 Albuterol/Ipratropium (Duoneb Neb) 3 ml HHN [id number] [facility] Stop: 07/07/18 18:59 Last Admin: 05/10/18 19:23 Dose: 3 ml Budesonide (Pulmicort) 0.5 mg HHN DAILYRT [facility] Stop: 07/08/18 06:59 Last Admin: 05/10/18 06:57 Dose: 0.5 mg Clonazepam (Klonopin) 1 mg PO BID [facility]; Protocol Stop: 07/09/18 12:29 Last Admin: 05/10/18 17:06 Dose: 1 mg Divalproex Sodium (Depakote Dr) 500 mg PO BID [facility]; Protocol Stop: 07/07/18 08:59 Last Admin: 05/10/18 17:05 Dose: 500 mg Haloperidol Lactate (Haldol) 5 mg IM Q6H PRN PRN Reason: Agitation Stop: 07/07/18 10:29 Last Admin: 05/09/18 21:18 Dose: 5 mg Heparin Sodium (Porcine) (Heparin) 5,000 units SUBQ Q8HR [facility] Stop: 07/07/18 20:59 Last Admin: 05/10/18 20:45 Dose: 5,000 units Hydrocortisone (Cortef) 10 mg PO BID [facility] Stop: 07/07/18 08:59 Last Admin: 05/10/18 17:05 Dose: 10 mg Meropenem 500 mg/ Sodium (Chloride) 100 mls @ 100 mls/hr IV Q8H [facility] Stop: 07/07/18 00:00 Last Infusion: 05/11/18 00:42 Dose: Infused Dextrose/Sodium Chloride (D5-0.45ns) 1,000 mls @ 75 mls/hr IV .[id number] [facility] Stop: 07/07/18 14:14 Last Admin: 05/10/18 23:45 Dose: 75 mls/hr Vancomycin HCl 1.5 gm/ Sodium (Chloride) 500 mls @ 250 mls/hr IV Q8H [facility] Stop: 07/08/18 09:59 Last Admin: 05/11/18 02:00 Dose: 250 mls/hr Insulin Aspart (Novolog Insulin Sliding Scale) 0 units SUBQ ACHS [facility]; Protocol Stop: 07/07/18 07:29 Last Admin: 05/10/18 20:48 Dose: 3 units Insulin Detemir (Levemir Insulin) 12 units SUBQ DAILY [facility]; Protocol Stop: 07/07/18 08:59 Last Admin: 05/10/18 09:02 Dose: Not Given Ketorolac Tromethamine (Toradol) 15 mg IVP Q6HR PRN PRN Reason: Pain (Moderate) Stop: 05/13/18 16:11 Last Admin: 05/10/18 03:38 Dose: 15 mg Lactobacillus Rhamnosus (Culturelle 15b) 1 each PO DAILY [facility] Stop: 07/07/18 13:59 Last Admin: 05/10/18 09:01 Dose: 1 each Levothyroxine Sodium 0.075 mg/ (Levothyroxine Sodium 0.1 mg) 0.175 mg PO QDAC [facility] Stop: 07/07/18 07:29 Last Admin: 05/10/18 09:00 Dose: 0.175 mg Miscellaneous (Vte Chemical Prophylaxis Screen/ Admission) 1 ea PRN PRN PRN Reason: PROTOCOL Stop: 07/07/18 09:07 Miscellaneous (Probiotic Screen) 1 ea PRN PRN PRN Reason: PROTOCOL Stop: 07/07/18 12:10 Miscellaneous (Vancomycin Iv Per Pharmacy) 1 ea PRN PRN PRN Reason: PROTOCOL Stop: 07/07/18 18:52 Ondansetron HCl (Zofran) 4 mg IV Q6H PRN PRN Reason: Nausea / Vomiting Stop: 07/06/18 23:30 Polyethylene Glycol (Miralax) 17 gm PO BID [facility] Stop: 07/09/18 16:59 Last Admin: 05/10/18 17:09 Dose: 17 gm Quetiapine Fumarate (Seroquel) 50 mg PO BID [facility]; Protocol Stop: 07/08/18 16:59 Last Admin: 05/10/18 17:05 Dose: 50 mg Nutritional Asmnt/Malnutr-PDOC - Dietary Evaluation Malnutrition Findings (Please click <Entered> for more info): Nutritional Asmnt/Malnutrition Start: 05/08/18 15: 33 Text: Status: Complete Freq: Protocol: Document 05/08/18 15:33 LCHENG (Rec: 05/08/18 15:50 [email or web address] [id number]) Nutritional Asmnt/Malnutrition Patient General Information Nutritional Screening High Risk Consult Diagnosis brochitis, possible PNA Pertinent Medical Hx/Surgical Hx no H&P as of 05/08 3:30pm Subjective Information Pt seen lying in bed receiving breathing treatment at time of visit. Per RN, pt kept on NPO status. Consult received for left foot wound. Current Diet Order/ Nutrition Support NPO Pertinent Medications D5-0.45ns, novolog, levmir, culturelle, levothyroxine, vancomycin Pertinent Labs 05/08 Cr 0.6, glucose 150, POC 123-144 05/07 Glucose 197 Nutritional Hx/Data Height 1.7 m Height (Calculated Centimeters) 170.2 Current Weight (lbs) 83.915 kg Weight (Calculated Kilograms) 83.9 Weight (Calculated Grams) 05049.6 [place] Body Weight 148 Body Mass Index (BMI) 29.0 Weight Status Overweight GI Symptoms Last BM none noted Skin Integrity/Comment: per RN note 05/08: open wound on left foot, and skin irritation with open skin in inner buttocks Current %PO Negligible < 25% Estimated Nutritional Goals BEE in Kcals: Using Current wt Calories/Kcals/Kg 23-27 Kcals Calculated 3139-9092 Protein: Using Current wt Protein g/k Protein Calculated 84 Fluid: ml 2-2268ml (1ml/kcal) Nutritional Problem 1. Problem Problem inadequate energy intake Etiology increased nutrition needs d/t wound Signs/Symptoms: PO on NPO status Intervention/Recommendation Comments 1. Monitor NPO status. Recommend swallow eval before initiating oral diet. Recommend CCHO diet with texture per ST, add Jalen BID for wound healing. 2. Monitor wt, labs and skin integrity 3. F/U as high risk in 2 days. Expected Outcomes/Goals Expected Outcomes/Goals 1. PO intake to meet at least 75% of nutritional needs. 2. Wt stability, skin to heal, labs to approach WNL.
[2018-05-11 06:20] LABS: % BASOPHILS 0.8 % (0.0-2.0); % EOSINOPHILS 1.3 % (0.0-5.0); % MONOCYTES 11.3 % (2.0-10.0); % NEUTROPHILS 70.6 % (40.0-80.0); BASOPHILE ABSOLUTE 0.1 Th/cumm (0-0.2); EOSINOPHILE ABSOLUTE 0.1 Th/cmm (0.1-0.4); HEMATOCRIT 32.3 % (41.0-60); HEMOGLOBIN 10.7 gm/dL (12-16); LYMPHOCYTE ABSOLUTE 1.2 Th/cmm (1.5-3.0); MEAN CELL VOLUME 90.7 fl (80-99); MEAN CORPUSCULAR HEMOGLOBIN 30.1 pg (26.0-30.0); MEAN CORPUSCULAR HGB CONC 33.2 pg (28.0-36.0); MEAN PLATELET VOLUME 6.7 fl; MONOCYTE ABSOLUTE 0.8 Th/cmm (0.3-1.0); NEUTROPHILE ABSOLUTE 5.1 Th/cmm (1.8-8.0); PLATELET COUNT 337 Th/cmm (150-400); RED BLOOD COUNT 3.56 Mil/cmm (4.30-5.70); WHITE BLOOD COUNT 7.3 Th/cmm (4.8-10.8)
[2018-05-11] MEDS: INSULIN ASPART SLIDING SCALE 100 UNITS/ML UNIT SUBQ SCH ×4 (06:31→21:12)
[2018-05-11 06:36] LABS: ALBUMIN 3.2 gm/dL (4.2-5.5); ALKALINE PHOSPHATASE 71 U/L (34-104); ANION GAP 11.6 (7.0-16.0); BILIRUBIN,TOTAL 0.3 mg/dL (0.3-1.0); BUN - UREA NITROGEN 9 mg/dL (7-25); CALCIUM SERUM 9.2 mg/dL (8.6-10.3); CARBON DIOXIDE 26.4 mEq/L (21.0-31.0); CHLORIDE 106 mEq/L (98-107); CREATININE - SERUM 0.5 mg/dL (0.7-1.3); GFR AFRICAN-AMERICAN > 60.0 ml/min (>90); GFR NON AFRICAN-AMERICAN > 60.0 ml/min; GLUCOSE 138 mg/dL (70-105); SGOT 14 U/L (13-39); SGPT/ALT 20 U/L (7-52); SODIUM SERUM 141 mEq/L (136-145); TOTAL PROTEIN,SERUM 6.5 gm/dL (6.0-8.3)
[2018-05-11] MEDS: Albuterol/Ipratropium Neb 3 ML AERS HHN SCH ×4 (06:57→19:26)
[2018-05-11] MEDS: Budesonide 0.5 Mg/2 mL Ud HHN SCH (07:11)
--- NOTE | 2018-05-11 08:59 | Diagnostic Imaging Report ---
CT Chest without IV contrast HISTORY: Tracheobronchitis COMPARISON: Chest x-ray on 05/09/2018. Technique: Axial images were obtained from the base of the neck to the upper abdomen without IV contrast. Reconstructions were made. Total DLP 380, CTD I 10.4 Findings: Evaluation of mediastinum is limited due to lack of IV contrast. No evidence of mediastinal lymphadenopathy. There. The postsurgical changes seen along the right hilar region and right mediastinal regions. Mild atherosclerosis is noted including diffuse coronary artery calcifications. Heart size is normal. No pericardial effusion identified. No evidence of an aneurysm. The lung quintero demonstrate mild emphysematous changes most pronounced within the right apex. Hypoventilatory and atelectatic changes are also seen throughout the lungs. Few faint infiltrates are also noted within the bilateral lower lobes with minimal bibasal consolidative changes small bilateral pleural effusions. No focal tracheal abnormality identified. There is mild narrowing involving the right upper lung zone bronchi at the hilum with slightly prominent soft tissue density in this region. There is generalized mild decreased volume of the right lung. Evaluation of the upper abdomen demonstrates probable small area of focal fatty infiltration along the falciform ligament. Moderate stool is noted. Degenerative changes of spine of the spine are noted. IMPRESSION: There appear to be postsurgical changes along the right hilar region and right hemithorax , please correlate clinically. A Mild emphysematous changes are seen most pronounced within the right apex. Few bilateral infiltrates are seen primarily along the lower lung zones with minimal bibasal consolidative changes and small bilateral pleural effusions. Findings may be due to pneumonia. Mild narrowing involving the right upper lung zone bronchi at the hilum its slightly prominent soft tissue density in this region. Postsurgical changes are also noted in this region. Please correlate with patient's clinical findings and bronchoscopy results. Note exam was also limited due to lack of IV contrast. Lymphadenopathy in this region is not suspected, however, if necessary, short-term follow-up CT exam is with IV contrast may be obtained. No focal tracheal abnormality identified Atherosclerosis including diffuse coronary artery calcifications. Probable small focal area of fatty infiltration along the falciform ligament of the liver.
[2018-05-11] MEDS ORDERED: Potassium Chloride 20 mEq ER Tab PO ONE (09:00)
[2018-05-11] MEDS: Meropenem 500 MG in Sodium Chloride 0.9% 100 ML IV SCH ×2 (10:07→17:16)
[2018-05-11] MEDS: POLYETHYLENE GLYCOL 3350 17 GM PACK PO SCH ×2 (10:07→16:03)
[2018-05-11] MEDS: Lactobacillus Rhamnosus GG 15 Billion CFU CAP.SPRINK PO SCH (10:07)
[2018-05-11] MEDS: Insulin Detemir 100 units/mL 10mL Vial SUBQ SCH (11:22)
--- NOTE | 2018-05-11 14:57 | Progress Notes ---
DATE: 05/11/2018 SUBJECTIVE: The patient is currently in the hospital, yelling episodes, screaming episodes, very difficult to control his behaviors, very confused, disoriented, asking for his mom, asking for his dad, asking if his mom is dad. Difficulty with controlling his behaviors, although the past 24 hours since Klonopin was initiated routinely, he does seem to be calmer, much quieter, very sensitive to dosing of Klonopin, currently on 1 mg twice daily and Seroquel as noted 50 mg twice daily. ASSESSMENT: The patient is calmer, less yelling and screaming episodes, seems to be showing signs and symptoms of improvement. We will consider also at this time checking a Depakote level. [facility]# [id number]
--- NOTE | 2018-05-11 20:17 | History & Physical ---
ADMIT DATE: 05/11/2018 PULMONARY PROGRESS NOTE PROBLEM LIST: 1. Respiratory failure, better. 2. Underlying tracheobronchitis with mild degree of basal infiltrate. 3. Underlying history of sleep apnea syndrome. 4. History of PE and also history of underlying multiple episodes of psychological issues. SYMPTOMS: The patient is sleeping. Opens eyes. No respiratory distress. He is ____ and no other much communication. PHYSICAL EXAMINATION: VITAL SIGNS: T-max is 98.7, blood pressure is 146/92, respirations 18, and saturation is in mid to high 90s on 2 liters. NECK: Veins not visualized. CHEST: Shows diminished air entry with occasional rhonchi. HEART: Regular. ABDOMEN: Soft, nontender. LABORATORY DATA: White count is 7.0 and hemoglobin is 10.7. Electrolytes, potassium is 3. ASSESSMENT: The patient is clinically slightly better and improving. PLANS AND SUGGESTIONS: We will continue current respiratory therapy inhalation treatment, antibiotics, and limited dose of steroid. He is okay from pulmonary alvares for Dimple evaluation, if it is okay with primary and go from there. JOB# [id number]
--- NOTE | 2018-05-11 21:52 | General Progress Note ---
Subjective - Review of Systems Service Date: 05/11/18 Subjective: Patient seen and examined wants to eat pulled NG tube out requiring hand restrains for agitation Objective - Results Result Diagrams: 05/11/18 06:06 05/11/18 06:06 Recent Labs: Laboratory Last Values WBC 7.3 Th/cmm (4.8-10.8) 05/11/18 06:06 RBC 3.56 Mil/cmm (4.30-5.70) L 05/11/18 06:06 Hgb 10.7 gm/dL (12-16) L 05/11/18 06:06 Hct 32.3 % (41.0-60) L 05/11/18 06:06 MCV 90.7 fl (80-99) 05/11/18 06:06 MCH 30.1 pg (26.0-30.0) H 05/11/18 06:06 MCHC Differential 33.2 pg (28.0-36.0) 05/11/18 06:06 RDW 15.0 % (11.5-20.0) 05/11/18 06:06 Plt Count 337 Th/cmm (150-400) 05/11/18 06:06 MPV 6.7 fl 05/11/18 06:06 Add Manual Diff YES 05/08/18 06:10 Neutrophils % 70.6 % (40.0-80.0) 05/11/18 06:06 Band Neutrophils % 3 % (0-10) 05/08/18 06:10 Lymphocytes % 16.0 % (20.0-50.0) L 05/11/18 06:06 Monocytes % 11.3 % (2.0-10.0) H 05/11/18 06:06 Eosinophils % 1.3 % (0.0-5.0) 05/11/18 06:06 Basophils % 0.8 % (0.0-2.0) 05/11/18 06:06 Neutrophils (Manual) 81 % (40-80) H 05/08/18 06:10 Lymphocytes 10 % (20-50) L 05/08/18 06:10 Monocytes 6 % (2-10) 05/08/18 06:10 Eosinophils 0 % (0-5) 05/08/18 06:10 Basophils 0 % (0-3) 05/08/18 06:10 Platelet Estimate ADEQUATE (NORMAL) 05/07/18 22:10 PT 11.7 SECONDS (9.5-11.5) H 05/09/18 04:30 INR 1.14 (0.5-1.4) 05/09/18 04:30 PTT (Actin FS) 31.9 SECONDS (26.0-38.0) 05/09/18 04:30 Specimen Source Arterial 05/10/18 09:35 Sample Site Right Radial 05/10/18 09:35 pH 7.48 (7.35-7.45) H 05/10/18 09:35 pCO2 40.0 mmHg (35.0-45.0) 05/10/18 09:35 pO2 57.0 mmHg (80.0-100.0) L 05/10/18 09:35 HCO3 29.3 mEq/L (20.0-26.0) H 05/10/18 09:35 Base Excess 5.8 mEq/L (-3.0-3.0) H 05/10/18 09:35 O2 Saturation 91.0 % (92.0-100.0) L 05/10/18 09:35 Abilio Test YES 05/10/18 09:35 Vent Rate NA 05/10/18 09:35 Inspired O2 21 05/10/18 09:35 Tidal Volume NA 05/10/18 09:35 PEEP NA 05/10/18 09:35 Pressure (ins/psv/peep) NA 05/10/18 09:35 Critical Value E.SOLIS 05/10/18 09:35 Sodium 141 mEq/L (136-145) 05/11/18 06:06 Potassium 3.0 mEq/L (3.5-5.1) L 05/11/18 06:06 Chloride 106 mEq/L (98-107) 05/11/18 06:06 Carbon Dioxide 26.4 mEq/L (21.0-31.0) 05/11/18 06:06 Anion Gap 11.6 (7.0-16.0) 05/11/18 06:06 BUN 9 mg/dL (7-25) 05/11/18 06:06 Creatinine 0.5 mg/dL (0.7-1.3) L 05/11/18 06:06 Est GFR ( Amer) > 60.0 ml/min (>90) 05/11/18 06:06 Est GFR (Non-Af Amer) > 60.0 ml/min 05/11/18 06:06 BUN/Creatinine Ratio 18.0 05/11/18 06:06 Glucose 138 mg/dL (70-105) H 05/11/18 06:06 POC Glucose 138 MG/DL (70 - 105) H 05/11/18 21:06 Whole Bld Lactic Acid 0.99 mmol/L (0.60-1.99) 05/07/18 22:10 Calcium 9.2 mg/dL (8.6-10.3) 05/11/18 06:06 Magnesium 1.8 mg/dL (1.9-2.7) L 05/09/18 04:30 Total Bilirubin 0.3 mg/dL (0.3-1.0) 05/11/18 06:06 AST 14 U/L (13-39) 05/11/18 06:06 ALT 20 U/L (7-52) 05/11/18 06:06 Alkaline Phosphatase 71 U/L (34-104) 05/11/18 06:06 Ammonia 36 umol/L (16-53) 05/10/18 09:00 Total Protein 6.5 gm/dL (6.0-8.3) 05/11/18 06:06 Albumin 3.2 gm/dL (4.2-5.5) L 05/11/18 06:06 Globulin 3.3 gm/dL 05/11/18 06:06 Albumin/Globulin Ratio 1.0 (1.0-1.8) 05/11/18 06:06 Free T3 1.2 pg/mL (2.0-4.4) L 05/09/18 04:30 TSH 9.60 uIU/ml (0.34-5.60) H 05/09/18 04:30 Urine Source CLEAN C 05/09/18 05:35 Urine Color YELLOW 05/09/18 05:35 Urine Clarity CLEAR (CLEAR) 05/09/18 05:35 Urine pH 7.0 (4.6 - 8.0) 05/09/18 05:35 Ur Specific [place] 1.025 (1.005-1.030) 05/09/18 05:35 Urine Protein NEGATIVE mg/dL (NEGATIVE) 05/09/18 05:35 Urine Glucose (UA) NEGATIVE mg/dL (NEGATIVE) 05/09/18 05:35 Urine Ketones TRACE mg/dL (NEGATIVE) 05/09/18 05:35 Urine Blood NEGATIVE (NEGATIVE) 05/09/18 05:35 Urine Nitrate NEGATIVE (NEGATIVE) 05/09/18 05:35 Urine Bilirubin NEGATIVE (NEGATIVE) 05/09/18 05:35 Urine Urobilinogen 4.0 E.U./dL (0.2 - 1.0) H 05/09/18 05:35 Ur Leukocyte Esterase NEGATIVE (NEGATIVE) 05/09/18 05:35 Urine RBC 0-2 /hpf (0-5) H 05/09/18 05:35 Urine WBC 0-2 /hpf (0-5) 05/09/18 05:35 Ur Epithelial Cells FEW /lpf (FEW) 05/09/18 05:35 Urine Bacteria NONE SEEN /hpf (NONE SEEN) 05/09/18 05:35 Vancomycin Trough 17.6 ug/mL (5-10) H 05/10/18 09:00 Influenza A (Rapid) NEG FOR INF A 05/08/18 01:00 Influenza B (Rapid) NEG FOR INF B 05/08/18 01:00 - Physical Exam Vitals and I&O: Vital Signs Temp 98.7 F 05/11/18 19:00 Pulse 92 05/11/18 19:26 Resp 26 05/11/18 21:15 BP 146/92 05/11/18 19:00 Pulse Ox 96 05/11/18 21:15 Intake & Output 05/11/18 05/11/18 05/12/18 06:59 18:59 06:59 Intake Total 1720 700 Balance 1720 700 Weight (lbs) 85.275 kg Intake: Intake, IV Amount 1600 700 D5-0.45NS 1,000 ml @ 75 1000 mls/hr IV .[id number] [facility] Rx #:[id number] Meropenem 500 mg In 100 200 Sodium Chloride 0.9% 100 ml @ 100 mls/hr IV Q8H [facility] Rx#:[id number] Vancomycin HCl 1.5 gm In 500 500 Sodium Chloride 0.9% 500 ml @ 250 mls/hr IV Q8H [facility] Rx#:[id number] Oral 120 Other: # Voids 4 # Bowel Movements 1 Weight Source Bedscale Active Medications: Current Medications Acetaminophen (Tylenol) 650 mg PO Q4HR PRN PRN Reason: Pain Or Fever above 101 Stop: 07/06/18 21:39 Acetaminophen (Tylenol 650mg Supp) 650 mg RC Q6H PRN PRN Reason: fever > 100.4 Stop: 07/06/18 23:24 Last Admin: 05/08/18 00:15 Dose: 650 mg Albuterol/Ipratropium (Duoneb Neb) 3 ml HHN Q2HRT PRN PRN Reason: Wheezing Stop: 07/06/18 22:10 Albuterol/Ipratropium (Duoneb Neb) 3 ml HHN [id number] [facility] Stop: 07/07/18 18:59 Last Admin: 05/11/18 19:26 Dose: 3 ml Budesonide (Pulmicort) 0.5 mg HHN DAILYRT [facility] Stop: 07/08/18 06:59 Last Admin: 05/11/18 07:11 Dose: 0.5 mg Clonazepam (Klonopin) 1 mg PO BID [facility]; Protocol Stop: 07/09/18 12:29 Last Admin: 05/11/18 17:19 Dose: 1 mg Divalproex Sodium (Depakote Dr) 500 mg PO BID [facility]; Protocol Stop: 07/07/18 08:59 Last Admin: 05/11/18 17:19 Dose: 500 mg Haloperidol Lactate (Haldol) 5 mg IM Q6H PRN PRN Reason: Agitation Stop: 07/07/18 10:29 Last Admin: 05/09/18 21:18 Dose: 5 mg Heparin Sodium (Porcine) (Heparin) 5,000 units SUBQ Q8HR [facility] Stop: 07/07/18 20:59 Last Admin: 05/11/18 20:24 Dose: 5,000 units Hydrocortisone (Cortef) 10 mg PO BID [facility] Stop: 07/07/18 08:59 Last Admin: 05/11/18 17:19 Dose: 10 mg Meropenem 500 mg/ Sodium (Chloride) 100 mls @ 100 mls/hr IV Q8H [facility] Stop: 07/07/18 00:00 Last Infusion: 05/11/18 18:16 Dose: Infused Dextrose/Sodium Chloride (D5-0.45ns) 1,000 mls @ 75 mls/hr IV .[id number] [facility] Stop: 07/07/18 14:14 Last Admin: 05/10/18 23:45 Dose: 75 mls/hr Vancomycin HCl 1.5 gm/ Sodium (Chloride) 500 mls @ 250 mls/hr IV Q8H [facility] Stop: 07/08/18 09:59 Last Infusion: 05/11/18 13:22 Dose: Infused Insulin Aspart (Novolog Insulin Sliding Scale) 0 units SUBQ ACHS [facility]; Protocol Stop: 07/07/18 07:29 Last Admin: 05/11/18 21:12 Dose: Not Given Insulin Detemir (Levemir Insulin) 12 units SUBQ DAILY [facility]; Protocol Stop: 07/07/18 08:59 Last Admin: 05/11/18 11:22 Dose: Not Given Ketorolac Tromethamine (Toradol) 15 mg IVP Q6HR PRN PRN Reason: Pain (Moderate) Stop: 05/13/18 16:11 Last Admin: 05/11/18 13:38 Dose: 15 mg Lactobacillus Rhamnosus (Culturelle 15b) 1 each PO DAILY [facility] Stop: 07/07/18 13:59 Last Admin: 05/11/18 10:07 Dose: 1 each Levothyroxine Sodium 0.075 mg/ (Levothyroxine Sodium 0.1 mg) 0.175 mg PO QDAC [facility] Stop: 07/07/18 07:29 Last Admin: 05/11/18 06:38 Dose: 0.175 mg Miscellaneous (Vte Chemical Prophylaxis Screen/ Admission) 1 ea PRN PRN PRN Reason: PROTOCOL Stop: 07/07/18 09:07 Miscellaneous (Probiotic Screen) 1 ea PRN PRN PRN Reason: PROTOCOL Stop: 07/07/18 12:10 Miscellaneous (Vancomycin Iv Per Pharmacy) 1 ea PRN PRN PRN Reason: PROTOCOL Stop: 07/07/18 18:52 Ondansetron HCl (Zofran) 4 mg IV Q6H PRN PRN Reason: Nausea / Vomiting Stop: 07/06/18 23:30 Polyethylene Glycol (Miralax) 17 gm PO BID [facility] Stop: 07/09/18 16:59 Last Admin: 05/11/18 16:03 Dose: Not Given Quetiapine Fumarate (Seroquel) 50 mg PO BID [facility]; Protocol Stop: 07/08/18 16:59 Last Admin: 05/11/18 17:19 Dose: 50 mg General: Alert, No acute distress Cardiovascular: Regular rate Lungs: Other (rales) Assessment/Plan - Assessment Assessment: Pneumonia Dysphagia Agitation Hypothyroidism Back pain - Plan Plan: Continue meropenem Puree diet with thickend liquids started ST eval in am Case discussed with Psych Klonopin added Continue synthroids Oxygen and bronchodilators Plan of care discussed with nursing staff Nutritional Asmnt/Malnutr-PDOC - Dietary Evaluation Malnutrition Findings (Please click <Entered> for more info): Nutritional Asmnt/Malnutrition Start: 05/08/18 15: 33 Text: Status: Complete Freq: Protocol: Document 05/08/18 15:33 LCHENG (Rec: 05/08/18 15:50 [email or web address]) Nutritional Asmnt/Malnutrition Patient General Information Nutritional Screening High Risk Consult Diagnosis brochitis, possible PNA Pertinent Medical Hx/Surgical Hx no H&P as of 05/08 3:30pm Subjective Information Pt seen lying in bed receiving breathing treatment at time of visit. Per RN, pt kept on NPO status. Consult received for left foot wound. Current Diet Order/ Nutrition Support NPO Pertinent Medications D5-0.45ns, novolog, levmir, culturelle, levothyroxine, vancomycin Pertinent Labs 05/08 Cr 0.6, glucose 150, POC 123-144 05/07 Glucose 197 Nutritional Hx/Data Height 1.7 m Height (Calculated Centimeters) 170.2 Current Weight (lbs) 83.915 kg Weight (Calculated Kilograms) 83.9 Weight (Calculated Grams) 41062.6 [place] Body Weight 148 Body Mass Index (BMI) 29.0 Weight Status Overweight GI Symptoms Last BM none noted Skin Integrity/Comment: per RN note 05/08: open wound on left foot, and skin irritation with open skin in inner buttocks Current %PO Negligible < 25% Estimated Nutritional Goals BEE in Kcals: Using Current wt Calories/Kcals/Kg 23-27 Kcals Calculated 8995-6064 Protein: Using Current wt Protein g/k Protein Calculated 84 Fluid: ml 1932-2268ml (1ml/kcal) Nutritional Problem 1. Problem Problem inadequate energy intake Etiology increased nutrition needs d/t wound Signs/Symptoms: PO on NPO status Intervention/Recommendation Comments 1. Monitor NPO status. Recommend swallow eval before initiating oral diet. Recommend CCHO diet with texture per ST, add Jalen BID for wound healing. 2. Monitor wt, labs and skin integrity 3. F/U as high risk in 2 days. Expected Outcomes/Goals Expected Outcomes/Goals 1. PO intake to meet at least 75% of nutritional needs. 2. Wt stability, skin to heal, labs to approach WNL.
--- NOTE | 2018-05-11 21:52 | General Progress Note ---
Subjective - Review of Systems Service Date: 05/10/18 Subjective: Patient seen and examined wants to eat pulled NG tube out requiring hand restrains for agitation Objective - Results Result Diagrams: 05/11/18 06:06 05/11/18 06:06 Recent Labs: Laboratory Last Values WBC 7.3 Th/cmm (4.8-10.8) 05/11/18 06:06 RBC 3.56 Mil/cmm (4.30-5.70) L 05/11/18 06:06 Hgb 10.7 gm/dL (12-16) L 05/11/18 06:06 Hct 32.3 % (41.0-60) L 05/11/18 06:06 MCV 90.7 fl (80-99) 05/11/18 06:06 MCH 30.1 pg (26.0-30.0) H 05/11/18 06:06 MCHC Differential 33.2 pg (28.0-36.0) 05/11/18 06:06 RDW 15.0 % (11.5-20.0) 05/11/18 06:06 Plt Count 337 Th/cmm (150-400) 05/11/18 06:06 MPV 6.7 fl 05/11/18 06:06 Add Manual Diff YES 05/08/18 06:10 Neutrophils % 70.6 % (40.0-80.0) 05/11/18 06:06 Band Neutrophils % 3 % (0-10) 05/08/18 06:10 Lymphocytes % 16.0 % (20.0-50.0) L 05/11/18 06:06 Monocytes % 11.3 % (2.0-10.0) H 05/11/18 06:06 Eosinophils % 1.3 % (0.0-5.0) 05/11/18 06:06 Basophils % 0.8 % (0.0-2.0) 05/11/18 06:06 Neutrophils (Manual) 81 % (40-80) H 05/08/18 06:10 Lymphocytes 10 % (20-50) L 05/08/18 06:10 Monocytes 6 % (2-10) 05/08/18 06:10 Eosinophils 0 % (0-5) 05/08/18 06:10 Basophils 0 % (0-3) 05/08/18 06:10 Platelet Estimate ADEQUATE (NORMAL) 05/07/18 22:10 PT 11.7 SECONDS (9.5-11.5) H 05/09/18 04:30 INR 1.14 (0.5-1.4) 05/09/18 04:30 PTT (Actin FS) 31.9 SECONDS (26.0-38.0) 05/09/18 04:30 Specimen Source Arterial 05/10/18 09:35 Sample Site Right Radial 05/10/18 09:35 pH 7.48 (7.35-7.45) H 05/10/18 09:35 pCO2 40.0 mmHg (35.0-45.0) 05/10/18 09:35 pO2 57.0 mmHg (80.0-100.0) L 05/10/18 09:35 HCO3 29.3 mEq/L (20.0-26.0) H 05/10/18 09:35 Base Excess 5.8 mEq/L (-3.0-3.0) H 05/10/18 09:35 O2 Saturation 91.0 % (92.0-100.0) L 05/10/18 09:35 Abilio Test YES 05/10/18 09:35 Vent Rate NA 05/10/18 09:35 Inspired O2 21 05/10/18 09:35 Tidal Volume NA 05/10/18 09:35 PEEP NA 05/10/18 09:35 Pressure (ins/psv/peep) NA 05/10/18 09:35 Critical Value E.SOLIS 05/10/18 09:35 Sodium 141 mEq/L (136-145) 05/11/18 06:06 Potassium 3.0 mEq/L (3.5-5.1) L 05/11/18 06:06 Chloride 106 mEq/L (98-107) 05/11/18 06:06 Carbon Dioxide 26.4 mEq/L (21.0-31.0) 05/11/18 06:06 Anion Gap 11.6 (7.0-16.0) 05/11/18 06:06 BUN 9 mg/dL (7-25) 05/11/18 06:06 Creatinine 0.5 mg/dL (0.7-1.3) L 05/11/18 06:06 Est GFR ( Amer) > 60.0 ml/min (>90) 05/11/18 06:06 Est GFR (Non-Af Amer) > 60.0 ml/min 05/11/18 06:06 BUN/Creatinine Ratio 18.0 05/11/18 06:06 Glucose 138 mg/dL (70-105) H 05/11/18 06:06 POC Glucose 138 MG/DL (70 - 105) H 05/11/18 21:06 Whole Bld Lactic Acid 0.99 mmol/L (0.60-1.99) 05/07/18 22:10 Calcium 9.2 mg/dL (8.6-10.3) 05/11/18 06:06 Magnesium 1.8 mg/dL (1.9-2.7) L 05/09/18 04:30 Total Bilirubin 0.3 mg/dL (0.3-1.0) 05/11/18 06:06 AST 14 U/L (13-39) 05/11/18 06:06 ALT 20 U/L (7-52) 05/11/18 06:06 Alkaline Phosphatase 71 U/L (34-104) 05/11/18 06:06 Ammonia 36 umol/L (16-53) 05/10/18 09:00 Total Protein 6.5 gm/dL (6.0-8.3) 05/11/18 06:06 Albumin 3.2 gm/dL (4.2-5.5) L 05/11/18 06:06 Globulin 3.3 gm/dL 05/11/18 06:06 Albumin/Globulin Ratio 1.0 (1.0-1.8) 05/11/18 06:06 Free T3 1.2 pg/mL (2.0-4.4) L 05/09/18 04:30 TSH 9.60 uIU/ml (0.34-5.60) H 05/09/18 04:30 Urine Source CLEAN C 05/09/18 05:35 Urine Color YELLOW 05/09/18 05:35 Urine Clarity CLEAR (CLEAR) 05/09/18 05:35 Urine pH 7.0 (4.6 - 8.0) 05/09/18 05:35 Ur Specific [place] 1.025 (1.005-1.030) 05/09/18 05:35 Urine Protein NEGATIVE mg/dL (NEGATIVE) 05/09/18 05:35 Urine Glucose (UA) NEGATIVE mg/dL (NEGATIVE) 05/09/18 05:35 Urine Ketones TRACE mg/dL (NEGATIVE) 05/09/18 05:35 Urine Blood NEGATIVE (NEGATIVE) 05/09/18 05:35 Urine Nitrate NEGATIVE (NEGATIVE) 05/09/18 05:35 Urine Bilirubin NEGATIVE (NEGATIVE) 05/09/18 05:35 Urine Urobilinogen 4.0 E.U./dL (0.2 - 1.0) H 05/09/18 05:35 Ur Leukocyte Esterase NEGATIVE (NEGATIVE) 05/09/18 05:35 Urine RBC 0-2 /hpf (0-5) H 05/09/18 05:35 Urine WBC 0-2 /hpf (0-5) 05/09/18 05:35 Ur Epithelial Cells FEW /lpf (FEW) 05/09/18 05:35 Urine Bacteria NONE SEEN /hpf (NONE SEEN) 05/09/18 05:35 Vancomycin Trough 17.6 ug/mL (5-10) H 05/10/18 09:00 Influenza A (Rapid) NEG FOR INF A 05/08/18 01:00 Influenza B (Rapid) NEG FOR INF B 05/08/18 01:00 - Physical Exam Vitals and I&O: Vital Signs Temp 98.7 F 05/11/18 19:00 Pulse 92 05/11/18 19:26 Resp 26 05/11/18 21:15 BP 146/92 05/11/18 19:00 Pulse Ox 96 05/11/18 21:15 Intake & Output 05/11/18 05/11/18 05/12/18 06:59 18:59 06:59 Intake Total 1720 700 Balance 1720 700 Weight (lbs) 85.275 kg Intake: Intake, IV Amount 1600 700 D5-0.45NS 1,000 ml @ 75 1000 mls/hr IV .[id number] [facility] Rx #:[id number] Meropenem 500 mg In 100 200 Sodium Chloride 0.9% 100 ml @ 100 mls/hr IV Q8H [facility] Rx#:[id number] Vancomycin HCl 1.5 gm In 500 500 Sodium Chloride 0.9% 500 ml @ 250 mls/hr IV Q8H [facility] Rx#:[id number] Oral 120 Other: # Voids 4 # Bowel Movements 1 Weight Source Bedscale Active Medications: Current Medications Acetaminophen (Tylenol) 650 mg PO Q4HR PRN PRN Reason: Pain Or Fever above 101 Stop: 07/06/18 21:39 Acetaminophen (Tylenol 650mg Supp) 650 mg RC Q6H PRN PRN Reason: fever > 100.4 Stop: 07/06/18 23:24 Last Admin: 05/08/18 00:15 Dose: 650 mg Albuterol/Ipratropium (Duoneb Neb) 3 ml HHN Q2HRT PRN PRN Reason: Wheezing Stop: 07/06/18 22:10 Albuterol/Ipratropium (Duoneb Neb) 3 ml HHN [id number] [facility] Stop: 07/07/18 18:59 Last Admin: 05/11/18 19:26 Dose: 3 ml Budesonide (Pulmicort) 0.5 mg HHN DAILYRT [facility] Stop: 07/08/18 06:59 Last Admin: 05/11/18 07:11 Dose: 0.5 mg Clonazepam (Klonopin) 1 mg PO BID [facility]; Protocol Stop: 07/09/18 12:29 Last Admin: 05/11/18 17:19 Dose: 1 mg Divalproex Sodium (Depakote Dr) 500 mg PO BID [facility]; Protocol Stop: 07/07/18 08:59 Last Admin: 05/11/18 17:19 Dose: 500 mg Haloperidol Lactate (Haldol) 5 mg IM Q6H PRN PRN Reason: Agitation Stop: 07/07/18 10:29 Last Admin: 05/09/18 21:18 Dose: 5 mg Heparin Sodium (Porcine) (Heparin) 5,000 units SUBQ Q8HR [facility] Stop: 07/07/18 20:59 Last Admin: 05/11/18 20:24 Dose: 5,000 units Hydrocortisone (Cortef) 10 mg PO BID [facility] Stop: 07/07/18 08:59 Last Admin: 05/11/18 17:19 Dose: 10 mg Meropenem 500 mg/ Sodium (Chloride) 100 mls @ 100 mls/hr IV Q8H [facility] Stop: 07/07/18 00:00 Last Infusion: 05/11/18 18:16 Dose: Infused Dextrose/Sodium Chloride (D5-0.45ns) 1,000 mls @ 75 mls/hr IV .[id number] [facility] Stop: 07/07/18 14:14 Last Admin: 05/10/18 23:45 Dose: 75 mls/hr Vancomycin HCl 1.5 gm/ Sodium (Chloride) 500 mls @ 250 mls/hr IV Q8H [facility] Stop: 07/08/18 09:59 Last Infusion: 05/11/18 13:22 Dose: Infused Insulin Aspart (Novolog Insulin Sliding Scale) 0 units SUBQ ACHS [facility]; Protocol Stop: 07/07/18 07:29 Last Admin: 05/11/18 21:12 Dose: Not Given Insulin Detemir (Levemir Insulin) 12 units SUBQ DAILY [facility]; Protocol Stop: 07/07/18 08:59 Last Admin: 05/11/18 11:22 Dose: Not Given Ketorolac Tromethamine (Toradol) 15 mg IVP Q6HR PRN PRN Reason: Pain (Moderate) Stop: 05/13/18 16:11 Last Admin: 05/11/18 13:38 Dose: 15 mg Lactobacillus Rhamnosus (Culturelle 15b) 1 each PO DAILY [facility] Stop: 07/07/18 13:59 Last Admin: 05/11/18 10:07 Dose: 1 each Levothyroxine Sodium 0.075 mg/ (Levothyroxine Sodium 0.1 mg) 0.175 mg PO QDAC [facility] Stop: 07/07/18 07:29 Last Admin: 05/11/18 06:38 Dose: 0.175 mg Miscellaneous (Vte Chemical Prophylaxis Screen/ Admission) 1 ea PRN PRN PRN Reason: PROTOCOL Stop: 07/07/18 09:07 Miscellaneous (Probiotic Screen) 1 ea PRN PRN PRN Reason: PROTOCOL Stop: 07/07/18 12:10 Miscellaneous (Vancomycin Iv Per Pharmacy) 1 ea PRN PRN PRN Reason: PROTOCOL Stop: 07/07/18 18:52 Ondansetron HCl (Zofran) 4 mg IV Q6H PRN PRN Reason: Nausea / Vomiting Stop: 07/06/18 23:30 Polyethylene Glycol (Miralax) 17 gm PO BID [facility] Stop: 07/09/18 16:59 Last Admin: 05/11/18 16:03 Dose: Not Given Quetiapine Fumarate (Seroquel) 50 mg PO BID [facility]; Protocol Stop: 07/08/18 16:59 Last Admin: 05/11/18 17:19 Dose: 50 mg General: Alert, No acute distress Cardiovascular: Regular rate Lungs: Other (rales) Assessment/Plan - Assessment Assessment: Pneumonia Dysphagia Agitation Hypothyroidism Back pain - Plan Plan: Continue meropenem Puree diet with thickend liquids started ST eval in am Case discussed with Psych Klonopin added Continue synthroids Oxygen and bronchodilators Plan of care discussed with nursing staff Nutritional Asmnt/Malnutr-PDOC - Dietary Evaluation Malnutrition Findings (Please click <Entered> for more info): Nutritional Asmnt/Malnutrition Start: 05/08/18 15: 33 Text: Status: Complete Freq: Protocol: Document 05/08/18 15:33 LCHENG (Rec: 05/08/18 15:50 [id number]) Nutritional Asmnt/Malnutrition Patient General Information Nutritional Screening High Risk Consult Diagnosis brochitis, possible PNA Pertinent Medical Hx/Surgical Hx no H&P as of 05/08 3:30pm Subjective Information Pt seen lying in bed receiving breathing treatment at time of visit. Per RN, pt kept on NPO status. Consult received for left foot wound. Current Diet Order/ Nutrition Support NPO Pertinent Medications D5-0.45ns, novolog, levmir, culturelle, levothyroxine, vancomycin Pertinent Labs 05/08 Cr 0.6, glucose 150, POC 123-144 05/07 Glucose 197 Nutritional Hx/Data Height 1.7 m Height (Calculated Centimeters) 170.2 Current Weight (lbs) 83.915 kg Weight (Calculated Kilograms) 83.9 Weight (Calculated Grams) 26562.6 [place] Body Weight 148 Body Mass Index (BMI) 29.0 Weight Status Overweight GI Symptoms Last BM none noted Skin Integrity/Comment: per RN note 05/08: open wound on left foot, and skin irritation with open skin in inner buttocks Current %PO Negligible < 25% Estimated Nutritional Goals BEE in Kcals: Using Current wt Calories/Kcals/Kg 23-27 Kcals Calculated 4831-4068 Protein: Using Current wt Protein g/k Protein Calculated 84 Fluid: ml 1932-2268ml (1ml/kcal) Nutritional Problem 1. Problem Problem inadequate energy intake Etiology increased nutrition needs d/t wound Signs/Symptoms: PO on NPO status Intervention/Recommendation Comments 1. Monitor NPO status. Recommend swallow eval before initiating oral diet. Recommend CCHO diet with texture per ST, add Jalen BID for wound healing. 2. Monitor wt, labs and skin integrity 3. F/U as high risk in 2 days. Expected Outcomes/Goals Expected Outcomes/Goals 1. PO intake to meet at least 75% of nutritional needs. 2. Wt stability, skin to heal, labs to approach WNL.
[2018-05-12] MEDS: Meropenem 500 MG in Sodium Chloride 0.9% 100 ML IV SCH ×3 (01:07→18:46)
[2018-05-12] MEDS: Vancomycin HCl 1.5 GM in Sodium Chloride 0.9% 500 ML IV SCH (02:13)
--- NOTE | 2018-05-12 02:39 | Infectious Disease Prog Note ---
Infectious Disease Subjective - Review of Systems Service Date: 05/11/18 (cc pn) Events since last encounter: hpi- pt tolaerating abx ros no efr o/e vss chest vesicular abd soft ext pulse Vital Signs - 24 hr 05/11/18 05/11/18 05/11/18 04:00 04:10 06:58 Temp 98.1 F HR 86 88 RR 20 31 18 BP 139/90 O2 Sat % 97 99 96 05/11/18 05/11/18 05/11/18 07:11 08:00 09:00 Temp 98.2 F 98.2 F HR 88 87 87 RR 18 18 18 BP 152/93 152/93 O2 Sat % 99 97 05/11/18 05/11/18 05/11/18 09:16 11:00 11:06 Temp 98.0 F HR 97 94 RR 18 18 18 BP 141/91 O2 Sat % 96 05/11/18 05/11/18 05/11/18 12:00 13:00 14:11 Temp 97.6 F 98.0 F HR 97 97 90 RR 18 18 18 BP 141/91 141/91 O2 Sat % 100 95 05/11/18 05/11/18 05/11/18 15:00 15:26 16:00 Temp 98.7 F 98.7 F HR 90 90 RR 18 20 18 BP 146/92 146/92 O2 Sat % 98 05/11/18 05/11/18 05/11/18 17:00 19:00 19:26 Temp 98.7 F 98.7 F HR 90 90 92 RR 18 18 22 BP 146/92 146/92 O2 Sat % 97 05/11/18 05/11/18 05/11/18 20:00 21:15 22:41 Temp 98.7 F HR 92 RR 18 26 25 BP 146/92 O2 Sat % 97 96 97 05/12/18 00:00 Temp HR RR 17 BP O2 Sat % Microbiology 05/09/18 05:35 Urine,Clean Catch Urine Culture - Final 05/07/18 22:20 Blood - Preliminary NO GROWTH AFTER 48 HOURS 05/07/18 22:10 Blood - Preliminary NO GROWTH AFTER 48 HOURS 05/09/18 10:15 Sputum - Expectorated Sputum Gram Stain - Final 05/09/18 10:15 Sputum - Expectorated Sputum Sputum Culture - Final 05/08/18 19:40 Sputum - Expectorated Sputum Gram Stain - Final 05/08/18 19:40 Sputum - Expectorated Sputum Sputum Culture - Final Diagnoses TYPE 2 DIABETES MELLITUS WITHOUT COMPLICATIONS (05/07/18) UNSPECIFIED DEMENTIA WITHOUT BEHAVIORAL DISTURBANCE (05/07/18) PNEUMONIA, UNSPECIFIED ORGANISM (05/07/18) DYSPHAGIA, UNSPECIFIED (05/07/18) WEAKNESS (05/07/18) Current Medications Acetaminophen (Tylenol) 650 mg PO Q4HR PRN PRN Reason: Pain Or Fever above 101 Stop: 07/06/18 21:39 Acetaminophen (Tylenol 650mg Supp) 650 mg RC Q6H PRN PRN Reason: fever > 100.4 Stop: 07/06/18 23:24 Last Admin: 05/08/18 00:15 Dose: 650 mg Albuterol/Ipratropium (Duoneb Neb) 3 ml HHN Q2HRT PRN PRN Reason: Wheezing Stop: 07/06/18 22:10 Albuterol/Ipratropium (Duoneb Neb) 3 ml HHN [id number] [facility] Stop: 07/07/18 18:59 Last Admin: 05/11/18 19:26 Dose: 3 ml Budesonide (Pulmicort) 0.5 mg HHN DAILYRT [facility] Stop: 07/08/18 06:59 Last Admin: 05/11/18 07:11 Dose: 0.5 mg Clonazepam (Klonopin) 1 mg PO BID [facility]; Protocol Stop: 07/09/18 12:29 Last Admin: 05/11/18 17:19 Dose: 1 mg Divalproex Sodium (Depakote Dr) 500 mg PO BID [facility]; Protocol Stop: 07/07/18 08:59 Last Admin: 05/11/18 17:19 Dose: 500 mg Haloperidol Lactate (Haldol) 5 mg IM Q6H PRN PRN Reason: Agitation Stop: 07/07/18 10:29 Last Admin: 05/09/18 21:18 Dose: 5 mg Heparin Sodium (Porcine) (Heparin) 5,000 units SUBQ Q8HR [facility] Stop: 07/07/18 20:59 Last Admin: 05/11/18 20:24 Dose: 5,000 units Hydrocortisone (Cortef) 10 mg PO BID [facility] Stop: 07/07/18 08:59 Last Admin: 05/11/18 17:19 Dose: 10 mg Meropenem 500 mg/ Sodium (Chloride) 100 mls @ 100 mls/hr IV Q8H [facility] Stop: 07/07/18 00:00 Last Admin: 05/12/18 01:07 Dose: 100 mls/hr Dextrose/Sodium Chloride (D5-0.45ns) 1,000 mls @ 75 mls/hr IV .[id number] [facility] Stop: 07/07/18 14:14 Last Admin: 05/10/18 23:45 Dose: 75 mls/hr Vancomycin HCl 1.5 gm/ Sodium (Chloride) 500 mls @ 250 mls/hr IV Q8H [facility] Stop: 07/08/18 09:59 Last Admin: 05/12/18 02:13 Dose: 250 mls/hr Insulin Aspart (Novolog Insulin Sliding Scale) 0 units SUBQ ACHS [facility]; Protocol Stop: 07/07/18 07:29 Last Admin: 05/11/18 21:12 Dose: Not Given Insulin Detemir (Levemir Insulin) 12 units SUBQ DAILY [facility]; Protocol Stop: 07/07/18 08:59 Last Admin: 05/11/18 11:22 Dose: Not Given Ketorolac Tromethamine (Toradol) 15 mg IVP Q6HR PRN PRN Reason: Pain (Moderate) Stop: 05/13/18 16:11 Last Admin: 05/11/18 13:38 Dose: 15 mg Lactobacillus Rhamnosus (Culturelle 15b) 1 each PO DAILY [facility] Stop: 07/07/18 13:59 Last Admin: 05/11/18 10:07 Dose: 1 each Levothyroxine Sodium 0.075 mg/ (Levothyroxine Sodium 0.1 mg) 0.175 mg PO QDAC [facility] Stop: 07/07/18 07:29 Last Admin: 05/11/18 06:38 Dose: 0.175 mg Miscellaneous (Vte Chemical Prophylaxis Screen/ Admission) 1 ea PRN PRN PRN Reason: PROTOCOL Stop: 07/07/18 09:07 Miscellaneous (Probiotic Screen) 1 ea PRN PRN PRN Reason: PROTOCOL Stop: 07/07/18 12:10 Miscellaneous (Vancomycin Iv Per Pharmacy) 1 ea PRN PRN PRN Reason: PROTOCOL Stop: 07/07/18 18:52 Ondansetron HCl (Zofran) 4 mg IV Q6H PRN PRN Reason: Nausea / Vomiting Stop: 07/06/18 23:30 Polyethylene Glycol (Miralax) 17 gm PO BID [facility] Stop: 07/09/18 16:59 Last Admin: 05/11/18 16:03 Dose: Not Given Quetiapine Fumarate (Seroquel) 50 mg PO BID [facility]; Protocol Stop: 07/08/18 16:59 Last Admin: 05/11/18 17:19 Dose: 50 mg Subjective: pn hpi- pt inf increased wbc decresed cx noted ros no efrv o/e vs chaest claer absd soft ext pulse Current Medications Generic Name Dose Route Start Last Admin Trade Name Freq PRN Reason Stop Dose Admin Acetaminophen 650 mg 05/07/18 21:40 Tylenol PO 07/06/18 21:39 Q4HR PRN Pain Or Fever above 101 Acetaminophen 650 mg 05/07/18 23:25 05/08/18 00:15 Tylenol 650mg Supp RC 07/06/18 23:24 650 mg Q6H PRN Administration fever > 100.4 Albuterol/Ipratropium 3 ml 05/07/18 22:11 Duoneb Neb [facility] 07/06/18 22:10 Q2HRT PRN Wheezing Albuterol/Ipratropium 3 ml 05/08/18 19:00 05/09/18 19:16 Duoneb Neb [facility] 07/07/18 18:59 3 ml [id number] [facility] Administration Budesonide 0.5 mg 05/09/18 07:00 05/09/18 11:42 Pulmicort N 07/08/18 06:59 0.5 mg DAILYRT [facility] Administration Clonazepam 0.5 mg 05/08/18 16:04 05/09/18 16:39 Klonopin PO 07/07/18 16:03 0.5 mg BID PRN Administration Agitation Protocol Divalproex Sodium 500 mg 05/08/18 09:00 05/09/18 16:[address] PO 07/07/18 08:59 500 mg BID [facility] Administration Protocol Haloperidol Lactate 5 mg 05/08/18 11:11 05/09/18 21:18 Haldol IM 07/07/18 10:29 5 mg Q6H PRN Administration Agitation Heparin Sodium (Porcine) 5,000 units 05/08/18 21:00 05/09/18 21:18 Heparin SUBQ 07/07/18 20:59 5,000 units Q8HR [facility] Administration Hydrocortisone 10 mg 05/08/18 09:00 05/09/18 17:21 Cortef PO 07/07/18 08:59 10 mg BID [facility] Administration Meropenem 500 mg/ Sodium 100 mls @ 100 mls/hr 05/08/18 00:00 05/10/18 00:23 Chloride IV 07/07/18 00:00 100 mls/hr Q8H [facility] Administration Dextrose/Sodium Chloride 1,000 mls @ 75 mls/hr 05/08/18 14:15 05/09/18 06:46 D5-0.45ns IV 07/07/18 14:14 75 mls/hr .[id number] [facility] Administration Vancomycin HCl 1.5 gm/ Sodium 500 mls @ 250 mls/hr 05/09/18 10:00 05/09/18 17 :24 Chloride IV 07/08/18 09:59 250 mls/hr Q8H [facility] Administration Insulin Aspart 0 units 05/08/18 07:30 05/09/18 21:00 Novolog Insulin Sliding Scale SUBQ 07/07/18 07:29 Not Given ACHS [facility] Protocol Insulin Detemir 12 units 05/08/18 09:00 05/09/18 08:14 Levemir Insulin SUBQ 07/07/18 08:59 12 units DAILY [facility] Administration Protocol Ketorolac Tromethamine 15 mg 05/08/18 16:12 05/09/18 21:18 Toradol IVP 05/13/18 16:11 15 mg Q6HR PRN Administration Pain (Moderate) Lactobacillus Rhamnosus 1 each 05/08/18 14:00 05/09/18 08:12 Culturelle 15b PO 07/07/18 13:59 1 each DAILY [facility] Administration Levothyroxine Sodium 0.075 mg/ 0.175 mg 05/08/18 07:30 05/09/18 06:48 Levothyroxine Sodium 0.1 mg PO 07/07/18 07:29 0.175 mg QDAC [facility] Administration Miscellaneous 1 ea 05/08/18 09:08 Vte Chemical Prophylaxis Screen/ Admission 07/07/18 09:07 PRN PRN PROTOCOL Miscellaneous 1 ea 05/08/18 12:11 Probiotic Screen 07/07/18 12:10 PRN PRN PROTOCOL Miscellaneous 1 ea 05/08/18 18:53 Vancomycin Iv Per Pharmacy 07/07/18 18:52 PRN PRN PROTOCOL Ondansetron HCl 4 mg 05/07/18 23:31 Zofran IV 07/06/18 23:30 Q6H PRN Nausea / Vomiting Quetiapine Fumarate 50 mg 05/09/18 17:00 Seroquel PO 07/08/18 16:59 BID [facility] Protocol Discontinued Medications Generic Name Dose Route Start Last Admin Trade Name Freq PRN Reason Stop Dose Admin Albuterol/Ipratropium 3 ml 05/08/18 01:00 Duoneb [facility] 07/07/18 00:59 Q6HRT [facility] Albuterol/Ipratropium 3 ml 05/08/18 01:00 05/09/18 01:31 Duoneb [facility] 07/07/18 00:59 3 ml Q6HRT [facility] Administration Albuterol/Ipratropium 3 ml 05/08/18 01:00 Duoneb [facility] 07/07/18 00:59 Q6HRT [facility] Budesonide 0.5 mg 05/08/18 07:00 05/09/18 07:18 Pulmicort [facility] 07/07/18 06:59 0.5 mg BIDRT [facility] Administration Haloperidol Lactate 5 mg 05/08/18 10:17 Haldol IVP 07/07/18 10:29 Q6H PRN Agitation Haloperidol Lactate Confirm 05/08/18 11:15 Haldol Administered 05/08/18 11:16 Dose 5 mg .ROUTE .STK-MED ONE Heparin Sodium (Porcine) 5,000 units 05/08/18 09:00 05/08/18 21:27 Heparin SUBQ 07/07/18 08:59 5,000 units Q12HR [facility] Administration Piperacillin Sod/Tazobactam 50 mls @ 100 mls/hr 05/07/18 22:00 Sod 4.5 gm/ Sodium Chloride IV 05/14/18 21:59 Q8HR [facility] Sodium Chloride 1,000 mls @ 80 mls/hr 05/08/18 00:00 05/08/18 00:14 Nacl 0.9% IV 07/07/18 00:00 80 mls/hr .[id number] [facility] Administration Vancomycin HCl 1 gm/ Sodium 250 mls @ 165 mls/hr 05/08/18 00:00 05/08/18 03: 01 Chloride IV 05/08/18 01:30 Infused ONCE ONE Infusion Vancomycin HCl 1.5 gm/ Sodium 500 mls @ 250 mls/hr 05/08/18 10:00 05/09/18 01 :08 Chloride IV 07/07/18 09:59 250 mls/hr Q12H [facility] Administration Vancomycin HCl 1 gm/ Sodium 250 mls @ as directed 05/07/18 11:59 Chloride IV 05/07/18 12:00 .STK-MED ONE Meropenem 500 mg/ Sodium 100 mls @ as directed 05/07/18 11:58 Chloride IV 05/07/18 11:59 .STK-MED ONE Levothyroxine Sodium 0.175 mg 05/08/18 07:30 Synthroid PO 07/07/18 07:29 QDAC [facility] Miscellaneous 1 ea 05/07/18 23:25 Vancomycin Iv Per Pharmacy 07/06/18 23:24 PRN PRN PROTOCOL Miscellaneous 1 05/08/18 18:55 Zosyn Iv Per Pharmacy 07/07/18 18:54 PRN PRN PROTOCOL Miscellaneous 1 05/08/18 18:55 Vancomycin Iv Per Pharmacy 07/06/18 23:24 PRN PRN PROTOCOL Ondansetron HCl 4 mg 05/07/18 23:29 05/08/18 00:15 Zofran IV 05/07/18 23:30 4 mg ONCE ONE Administration Quetiapine Fumarate 50 mg 05/09/18 16:30 05/09/18 16:39 Seroquel PO 05/09/18 16:31 50 mg X1 ONE Administration Protocol Microbiology 05/07/18 22:20 Blood - Preliminary NO GROWTH AFTER 48 HOURS 05/07/18 22:10 Blood - Preliminary NO GROWTH AFTER 48 HOURS 05/09/18 10:15 Sputum - Expectorated Sputum Gram Stain - Final 05/09/18 10:15 Sputum - Expectorated Sputum Sputum Culture - Final 05/08/18 19:40 Sputum - Expectorated Sputum Gram Stain - Final 05/08/18 19:40 Sputum - Expectorated Sputum Sputum Culture - Final Vital Signs - 24 hr 05/09/18 05/09/18 05/09/18 03:41 04:00 05:33 Temp 98.8 F HR 90 RR 18 18 24 BP 122/70 O2 Sat % 97 97 97 05/09/18 05/09/18 05/09/18 07:22 07:35 08:00 Temp 98.6 F HR 94 92 78 RR 20 20 18 BP 136/86 O2 Sat % 96 96 97 05/09/18 05/09/18 05/09/18 10:00 11:44 11:47 Temp 98.6 F 98.7 F HR 78 91 97 RR 18 20 18 BP 136/86 155/92 O2 Sat % 96 95 05/09/18 05/09/18 05/09/18 12:00 14:00 15:43 Temp 98.7 F 98.5 F HR 97 80 97 RR 18 18 20 BP 155/92 145/85 O2 Sat % 98 05/09/18 05/09/18 05/09/18 15:56 16:00 18:00 Temp 98.8 F 98.8 F 98.5 F HR 97 97 90 RR 18 18 18 BP 159/91 159/91 150/80 O2 Sat % 97 05/09/18 05/09/18 05/09/18 19:18 20:00 21:05 Temp 98.2 F HR 90 88 RR 18 19 22 BP 132/86 O2 Sat % 97 96 100 05/09/18 05/10/18 05/10/18 22:40 00:00 00:45 Temp 98.6 F HR 84 RR 20 19 22 BP 136/88 O2 Sat % 98 96 99 Diagnoses TYPE 2 DIABETES MELLITUS WITHOUT COMPLICATIONS (05/07/18) UNSPECIFIED DEMENTIA WITHOUT BEHAVIORAL DISTURBANCE (05/07/18) PNEUMONIA, UNSPECIFIED ORGANISM (05/07/18) DYSPHAGIA, UNSPECIFIED (05/07/18) WEAKNESS (05/07/18) Infectious Disease Objective - Results Result Diagrams: 05/11/18 06:06 05/11/18 06:06 Recent Labs: Laboratory Last Values WBC 7.3 Th/cmm (4.8-10.8) 05/11/18 06:06 RBC 3.56 Mil/cmm (4.30-5.70) L 05/11/18 06:06 Hgb 10.7 gm/dL (12-16) L 05/11/18 06:06 Hct 32.3 % (41.0-60) L 05/11/18 06:06 MCV 90.7 fl (80-99) 05/11/18 06:06 MCH 30.1 pg (26.0-30.0) H 05/11/18 06:06 MCHC Differential 33.2 pg (28.0-36.0) 05/11/18 06:06 RDW 15.0 % (11.5-20.0) 05/11/18 06:06 Plt Count 337 Th/cmm (150-400) 05/11/18 06:06 MPV 6.7 fl 05/11/18 06:06 Add Manual Diff YES 05/08/18 06:10 Neutrophils % 70.6 % (40.0-80.0) 05/11/18 06:06 Band Neutrophils % 3 % (0-10) 05/08/18 06:10 Lymphocytes % 16.0 % (20.0-50.0) L 05/11/18 06:06 Monocytes % 11.3 % (2.0-10.0) H 05/11/18 06:06 Eosinophils % 1.3 % (0.0-5.0) 05/11/18 06:06 Basophils % 0.8 % (0.0-2.0) 05/11/18 06:06 Neutrophils (Manual) 81 % (40-80) H 05/08/18 06:10 Lymphocytes 10 % (20-50) L 05/08/18 06:10 Monocytes 6 % (2-10) 05/08/18 06:10 Eosinophils 0 % (0-5) 05/08/18 06:10 Basophils 0 % (0-3) 05/08/18 06:10 Platelet Estimate ADEQUATE (NORMAL) 05/07/18 22:10 PT 11.7 SECONDS (9.5-11.5) H 05/09/18 04:30 INR 1.14 (0.5-1.4) 05/09/18 04:30 PTT (Actin FS) 31.9 SECONDS (26.0-38.0) 05/09/18 04:30 Specimen Source Arterial 05/10/18 09:35 Sample Site Right Radial 05/10/18 09:35 pH 7.48 (7.35-7.45) H 05/10/18 09:35 pCO2 40.0 mmHg (35.0-45.0) 05/10/18 09:35 pO2 57.0 mmHg (80.0-100.0) L 05/10/18 09:35 HCO3 29.3 mEq/L (20.0-26.0) H 05/10/18 09:35 Base Excess 5.8 mEq/L (-3.0-3.0) H 05/10/18 09:35 O2 Saturation 91.0 % (92.0-100.0) L 05/10/18 09:35 Abilio Test YES 05/10/18 09:35 Vent Rate NA 05/10/18 09:35 Inspired O2 21 05/10/18 09:35 Tidal Volume NA 05/10/18 09:35 PEEP NA 05/10/18 09:35 Pressure (ins/psv/peep) NA 05/10/18 09:35 Critical Value E.SOLIS 05/10/18 09:35 Sodium 141 mEq/L (136-145) 05/11/18 06:06 Potassium 3.0 mEq/L (3.5-5.1) L 05/11/18 06:06 Chloride 106 mEq/L (98-107) 05/11/18 06:06 Carbon Dioxide 26.4 mEq/L (21.0-31.0) 05/11/18 06:06 Anion Gap 11.6 (7.0-16.0) 05/11/18 06:06 BUN 9 mg/dL (7-25) 05/11/18 06:06 Creatinine 0.5 mg/dL (0.7-1.3) L 05/11/18 06:06 Est GFR ( Amer) > 60.0 ml/min (>90) 05/11/18 06:06 Est GFR (Non-Af Amer) > 60.0 ml/min 05/11/18 06:06 BUN/Creatinine Ratio 18.0 05/11/18 06:06 Glucose 138 mg/dL (70-105) H 05/11/18 06:06 POC Glucose 138 MG/DL (70 - 105) H 05/11/18 21:06 Whole Bld Lactic Acid 0.99 mmol/L (0.60-1.99) 05/07/18 22:10 Calcium 9.2 mg/dL (8.6-10.3) 05/11/18 06:06 Magnesium 1.8 mg/dL (1.9-2.7) L 05/09/18 04:30 Total Bilirubin 0.3 mg/dL (0.3-1.0) 05/11/18 06:06 AST 14 U/L (13-39) 05/11/18 06:06 ALT 20 U/L (7-52) 05/11/18 06:06 Alkaline Phosphatase 71 U/L (34-104) 05/11/18 06:06 Ammonia 36 umol/L (16-53) 05/10/18 09:00 Total Protein 6.5 gm/dL (6.0-8.3) 05/11/18 06:06 Albumin 3.2 gm/dL (4.2-5.5) L 05/11/18 06:06 Globulin 3.3 gm/dL 05/11/18 06:06 Albumin/Globulin Ratio 1.0 (1.0-1.8) 05/11/18 06:06 Free T3 1.2 pg/mL (2.0-4.4) L 05/09/18 04:30 TSH 9.60 uIU/ml (0.34-5.60) H 05/09/18 04:30 Urine Source CLEAN C 05/09/18 05:35 Urine Color YELLOW 05/09/18 05:35 Urine Clarity CLEAR (CLEAR) 05/09/18 05:35 Urine pH 7.0 (4.6 - 8.0) 05/09/18 05:35 Ur Specific Brooks 1.025 (1.005-1.030) 05/09/18 05:35 Urine Protein NEGATIVE mg/dL (NEGATIVE) 05/09/18 05:35 Urine Glucose (UA) NEGATIVE mg/dL (NEGATIVE) 05/09/18 05:35 Urine Ketones TRACE mg/dL (NEGATIVE) 05/09/18 05:35 Urine Blood NEGATIVE (NEGATIVE) 05/09/18 05:35 Urine Nitrate NEGATIVE (NEGATIVE) 05/09/18 05:35 Urine Bilirubin NEGATIVE (NEGATIVE) 05/09/18 05:35 Urine Urobilinogen 4.0 E.U./dL (0.2 - 1.0) H 05/09/18 05:35 Ur Leukocyte Esterase NEGATIVE (NEGATIVE) 05/09/18 05:35 Urine RBC 0-2 /hpf (0-5) H 05/09/18 05:35 Urine WBC 0-2 /hpf (0-5) 05/09/18 05:35 Ur Epithelial Cells FEW /lpf (FEW) 05/09/18 05:35 Urine Bacteria NONE SEEN /hpf (NONE SEEN) 05/09/18 05:35 Vancomycin Trough 17.6 ug/mL (5-10) H 05/10/18 09:00 Influenza A (Rapid) NEG FOR INF A 05/08/18 01:00 Influenza B (Rapid) NEG FOR INF B 05/08/18 01:00 - Physical Exam Vitals and I&O: Vital Signs Temp 98.7 F 05/11/18 20:00 Pulse 92 05/11/18 20:00 Resp 17 05/12/18 00:00 BP 146/92 05/11/18 20:00 Pulse Ox 97 05/11/18 22:41 Intake & Output 05/11/18 05/11/18 05/12/18 06:59 18:59 06:59 Intake Total 1720 700 Balance 1720 700 Weight (lbs) 85.275 kg Intake: Intake, IV Amount 1600 700 D5-0.45NS 1,000 ml @ 75 1000 mls/hr IV .[id number] [facility] Rx #:[id number] Meropenem 500 mg In 100 200 Sodium Chloride 0.9% 100 ml @ 100 mls/hr IV Q8H [facility] Rx#:[id number] Vancomycin HCl 1.5 gm In 500 500 Sodium Chloride 0.9% 500 ml @ 250 mls/hr IV Q8H [facility] Rx#:[id number] Oral 120 Other: # Voids 4 # Bowel Movements 1 Weight Source Bedscale Active Medications: Current Medications Acetaminophen (Tylenol) 650 mg PO Q4HR PRN PRN Reason: Pain Or Fever above 101 Stop: 07/06/18 21:39 Acetaminophen (Tylenol 650mg Supp) 650 mg RC Q6H PRN PRN Reason: fever > 100.4 Stop: 07/06/18 23:24 Last Admin: 05/08/18 00:15 Dose: 650 mg Albuterol/Ipratropium (Duoneb Neb) 3 ml HHN Q2HRT PRN PRN Reason: Wheezing Stop: 07/06/18 22:10 Albuterol/Ipratropium (Duoneb Neb) 3 ml HHN [id number] [facility] Stop: 07/07/18 18:59 Last Admin: 05/11/18 19:26 Dose: 3 ml Budesonide (Pulmicort) 0.5 mg HHN DAILYRT [facility] Stop: 07/08/18 06:59 Last Admin: 05/11/18 07:11 Dose: 0.5 mg Clonazepam (Klonopin) 1 mg PO BID [facility]; Protocol Stop: 07/09/18 12:29 Last Admin: 05/11/18 17:19 Dose: 1 mg Divalproex Sodium (Depakote Dr) 500 mg PO BID [facility]; Protocol Stop: 07/07/18 08:59 Last Admin: 05/11/18 17:19 Dose: 500 mg Haloperidol Lactate (Haldol) 5 mg IM Q6H PRN PRN Reason: Agitation Stop: 07/07/18 10:29 Last Admin: 05/09/18 21:18 Dose: 5 mg Heparin Sodium (Porcine) (Heparin) 5,000 units SUBQ Q8HR [facility] Stop: 07/07/18 20:59 Last Admin: 05/11/18 20:24 Dose: 5,000 units Hydrocortisone (Cortef) 10 mg PO BID [facility] Stop: 07/07/18 08:59 Last Admin: 05/11/18 17:19 Dose: 10 mg Meropenem 500 mg/ Sodium (Chloride) 100 mls @ 100 mls/hr IV Q8H [facility] Stop: 07/07/18 00:00 Last Admin: 05/12/18 01:07 Dose: 100 mls/hr Dextrose/Sodium Chloride (D5-0.45ns) 1,000 mls @ 75 mls/hr IV .[id number] [facility] Stop: 07/07/18 14:14 Last Admin: 05/10/18 23:45 Dose: 75 mls/hr Vancomycin HCl 1.5 gm/ Sodium (Chloride) 500 mls @ 250 mls/hr IV Q8H [facility] Stop: 07/08/18 09:59 Last Admin: 05/12/18 02:13 Dose: 250 mls/hr Insulin Aspart (Novolog Insulin Sliding Scale) 0 units SUBQ ACHS [facility]; Protocol Stop: 07/07/18 07:29 Last Admin: 05/11/18 21:12 Dose: Not Given Insulin Detemir (Levemir Insulin) 12 units SUBQ DAILY [facility]; Protocol Stop: 07/07/18 08:59 Last Admin: 05/11/18 11:22 Dose: Not Given Ketorolac Tromethamine (Toradol) 15 mg IVP Q6HR PRN PRN Reason: Pain (Moderate) Stop: 05/13/18 16:11 Last Admin: 05/11/18 13:38 Dose: 15 mg Lactobacillus Rhamnosus (Culturelle 15b) 1 each PO DAILY [facility] Stop: 07/07/18 13:59 Last Admin: 05/11/18 10:07 Dose: 1 each Levothyroxine Sodium 0.075 mg/ (Levothyroxine Sodium 0.1 mg) 0.175 mg PO QDAC [facility] Stop: 07/07/18 07:29 Last Admin: 05/11/18 06:38 Dose: 0.175 mg Miscellaneous (Vte Chemical Prophylaxis Screen/ Admission) 1 ea [facility] PRN PRN PRN Reason: PROTOCOL Stop: 07/07/18 09:07 Miscellaneous (Probiotic Screen) 1 ea PRN PRN PRN Reason: PROTOCOL Stop: 07/07/18 12:10 Miscellaneous (Vancomycin Iv Per Pharmacy) 1 ea PRN PRN PRN Reason: PROTOCOL Stop: 07/07/18 18:52 Ondansetron HCl (Zofran) 4 mg IV Q6H PRN PRN Reason: Nausea / Vomiting Stop: 07/06/18 23:30 Polyethylene Glycol (Miralax) 17 gm PO BID [facility] Stop: 07/09/18 16:59 Last Admin: 05/11/18 16:03 Dose: Not Given Quetiapine Fumarate (Seroquel) 50 mg PO BID [facility]; Protocol Stop: 07/08/18 16:59 Last Admin: 05/11/18 17:19 Dose: 50 mg Nutritional Asmnt/Malnutr-PDOC - Dietary Evaluation Malnutrition Findings (Please click <Entered> for more info): Nutritional Asmnt/Malnutrition Start: 05/08/18 15: 33 Text: Status: Complete Freq: Protocol: Document 05/08/18 15:33 [facility] (Rec: 05/08/18 15:50 HEN [email or web address]) Nutritional Asmnt/Malnutrition Patient General Information Nutritional Screening High Risk Consult Diagnosis brochitis, possible PNA Pertinent Medical Hx/Surgical Hx no H&P as of 05/08 3:30pm Subjective Information Pt seen lying in bed receiving breathing treatment at time of visit. Per RN, pt kept on NPO status. Consult received for left foot wound. Current Diet Order/ Nutrition Support NPO Pertinent Medications D5-0.45ns, novolog, levmir, culturelle, levothyroxine, vancomycin Pertinent Labs 05/08 Cr 0.6, glucose 150, POC 123-144 05/07 Glucose 197 Nutritional Hx/Data Height 1.7 m Height (Calculated Centimeters) 170.2 Current Weight (lbs) 83.915 kg Weight (Calculated Kilograms) 83.9 Weight (Calculated Grams) 19864.6 [place] Body Weight 148 Body Mass Index (BMI) 29.0 Weight Status Overweight GI Symptoms Last BM none noted Skin Integrity/Comment: per RN note 05/08: open wound on left foot, and skin irritation with open skin in inner buttocks Current %PO Negligible < 25% Estimated Nutritional Goals BEE in Kcals: Using Current wt Calories/Kcals/Kg 23-27 Kcals Calculated 1123-0690 Protein: Using Current wt Protein g/k Protein Calculated 84 Fluid: ml 1932-2268ml (1ml/kcal) Nutritional Problem 1. Problem Problem inadequate energy intake Etiology increased nutrition needs d/t wound Signs/Symptoms: PO on NPO status Intervention/Recommendation Comments 1. Monitor NPO status. Recommend swallow eval before initiating oral diet. Recommend CCHO diet with texture per ST, add Jalen BID for wound healing. 2. Monitor wt, labs and skin integrity 3. F/U as high risk in 2 days. Expected Outcomes/Goals Expected Outcomes/Goals 1. PO intake to meet at least 75% of nutritional needs. 2. Wt stability, skin to heal, labs to approach WNL.
[2018-05-12] MEDS: INSULIN ASPART SLIDING SCALE 100 UNITS/ML UNIT SUBQ SCH ×4 (07:12→20:51)
[2018-05-12] MEDS: Albuterol/Ipratropium Neb 3 ML AERS HHN SCH ×4 (07:15→19:16)
[2018-05-12] MEDS: Budesonide 0.5 Mg/2 mL Ud HHN SCH (07:23)
[2018-05-12] MEDS: Lactobacillus Rhamnosus GG 15 Billion CFU CAP.SPRINK PO SCH (09:23)
[2018-05-12] MEDS: POLYETHYLENE GLYCOL 3350 17 GM PACK PO SCH ×2 (09:24→18:57)
[2018-05-12] MEDS: Insulin Detemir 100 units/mL 10mL Vial SUBQ SCH (09:26)
--- NOTE | 2018-05-12 21:31 | General Progress Note ---
Subjective - Review of Systems Service Date: 05/12/18 Subjective: Patient seen and examined awake confused at times Objective - Results Result Diagrams: 05/11/18 06:06 05/11/18 06:06 Recent Labs: Laboratory Last Values WBC 7.3 Th/cmm (4.8-10.8) 05/11/18 06:06 RBC 3.56 Mil/cmm (4.30-5.70) L 05/11/18 06:06 Hgb 10.7 gm/dL (12-16) L 05/11/18 06:06 Hct 32.3 % (41.0-60) L 05/11/18 06:06 MCV 90.7 fl (80-99) 05/11/18 06:06 MCH 30.1 pg (26.0-30.0) H 05/11/18 06:06 MCHC Differential 33.2 pg (28.0-36.0) 05/11/18 06:06 RDW 15.0 % (11.5-20.0) 05/11/18 06:06 Plt Count 337 Th/cmm (150-400) 05/11/18 06:06 MPV 6.7 fl 05/11/18 06:06 Add Manual Diff YES 05/08/18 06:10 Neutrophils % 70.6 % (40.0-80.0) 05/11/18 06:06 Band Neutrophils % 3 % (0-10) 05/08/18 06:10 Lymphocytes % 16.0 % (20.0-50.0) L 05/11/18 06:06 Monocytes % 11.3 % (2.0-10.0) H 05/11/18 06:06 Eosinophils % 1.3 % (0.0-5.0) 05/11/18 06:06 Basophils % 0.8 % (0.0-2.0) 05/11/18 06:06 Neutrophils (Manual) 81 % (40-80) H 05/08/18 06:10 Lymphocytes 10 % (20-50) L 05/08/18 06:10 Monocytes 6 % (2-10) 05/08/18 06:10 Eosinophils 0 % (0-5) 05/08/18 06:10 Basophils 0 % (0-3) 05/08/18 06:10 Platelet Estimate ADEQUATE (NORMAL) 05/07/18 22:10 PT 11.7 SECONDS (9.5-11.5) H 05/09/18 04:30 INR 1.14 (0.5-1.4) 05/09/18 04:30 PTT (Actin FS) 31.9 SECONDS (26.0-38.0) 05/09/18 04:30 Specimen Source Arterial 05/10/18 09:35 Sample Site Right Radial 05/10/18 09:35 pH 7.48 (7.35-7.45) H 05/10/18 09:35 pCO2 40.0 mmHg (35.0-45.0) 05/10/18 09:35 pO2 57.0 mmHg (80.0-100.0) L 05/10/18 09:35 HCO3 29.3 mEq/L (20.0-26.0) H 05/10/18 09:35 Base Excess 5.8 mEq/L (-3.0-3.0) H 05/10/18 09:35 O2 Saturation 91.0 % (92.0-100.0) L 05/10/18 09:35 Abilio Test YES 05/10/18 09:35 Vent Rate NA 05/10/18 09:35 Inspired O2 21 05/10/18 09:35 Tidal Volume NA 05/10/18 09:35 PEEP NA 05/10/18 09:35 Pressure (ins/psv/peep) NA 05/10/18 09:35 Critical Value E.SOLIS 05/10/18 09:35 Sodium 141 mEq/L (136-145) 05/11/18 06:06 Potassium 3.0 mEq/L (3.5-5.1) L 05/11/18 06:06 Chloride 106 mEq/L (98-107) 05/11/18 06:06 Carbon Dioxide 26.4 mEq/L (21.0-31.0) 05/11/18 06:06 Anion Gap 11.6 (7.0-16.0) 05/11/18 06:06 BUN 9 mg/dL (7-25) 05/11/18 06:06 Creatinine 0.5 mg/dL (0.7-1.3) L 05/11/18 06:06 Est GFR ( Amer) > 60.0 ml/min (>90) 05/11/18 06:06 Est GFR (Non-Af Amer) > 60.0 ml/min 05/11/18 06:06 BUN/Creatinine Ratio 18.0 05/11/18 06:06 Glucose 138 mg/dL (70-105) H 05/11/18 06:06 POC Glucose 109 MG/DL (70 - 105) H 05/12/18 18:50 Whole Bld Lactic Acid 0.99 mmol/L (0.60-1.99) 05/07/18 22:10 Calcium 9.2 mg/dL (8.6-10.3) 05/11/18 06:06 Magnesium 1.8 mg/dL (1.9-2.7) L 05/09/18 04:30 Total Bilirubin 0.3 mg/dL (0.3-1.0) 05/11/18 06:06 AST 14 U/L (13-39) 05/11/18 06:06 ALT 20 U/L (7-52) 05/11/18 06:06 Alkaline Phosphatase 71 U/L (34-104) 05/11/18 06:06 Ammonia 36 umol/L (16-53) 05/10/18 09:00 Total Protein 6.5 gm/dL (6.0-8.3) 05/11/18 06:06 Albumin 3.2 gm/dL (4.2-5.5) L 05/11/18 06:06 Globulin 3.3 gm/dL 05/11/18 06:06 Albumin/Globulin Ratio 1.0 (1.0-1.8) 05/11/18 06:06 Free T3 1.2 pg/mL (2.0-4.4) L 05/09/18 04:30 TSH 9.60 uIU/ml (0.34-5.60) H 05/09/18 04:30 Urine Source CLEAN C 05/09/18 05:35 Urine Color YELLOW 05/09/18 05:35 Urine Clarity CLEAR (CLEAR) 05/09/18 05:35 Urine pH 7.0 (4.6 - 8.0) 05/09/18 05:35 Ur Specific Marked [place] 1.025 (1.005-1.030) 05/09/18 05:35 Urine Protein NEGATIVE mg/dL (NEGATIVE) 05/09/18 05:35 Urine Glucose (UA) NEGATIVE mg/dL (NEGATIVE) 05/09/18 05:35 Urine Ketones TRACE mg/dL (NEGATIVE) 05/09/18 05:35 Urine Blood NEGATIVE (NEGATIVE) 05/09/18 05:35 Urine Nitrate NEGATIVE (NEGATIVE) 05/09/18 05:35 Urine Bilirubin NEGATIVE (NEGATIVE) 05/09/18 05:35 Urine Urobilinogen 4.0 E.U./dL (0.2 - 1.0) H 05/09/18 05:35 Ur Leukocyte Esterase NEGATIVE (NEGATIVE) 05/09/18 05:35 Urine RBC 0-2 /hpf (0-5) H 05/09/18 05:35 Urine WBC 0-2 /hpf (0-5) 05/09/18 05:35 Ur Epithelial Cells FEW /lpf (FEW) 05/09/18 05:35 Urine Bacteria NONE SEEN /hpf (NONE SEEN) 05/09/18 05:35 Vancomycin Trough 27.8 ug/mL (5-10) H 05/12/18 08:45 Valproic Acid < 10.0 ug/mL (50.0-100.0) L 05/12/18 08:45 Influenza A (Rapid) NEG FOR INF A 05/08/18 01:00 Influenza B (Rapid) NEG FOR INF B 05/08/18 01:00 - Physical Exam Vitals and I&O: Vital Signs Temp 98.4 F 05/12/18 20:00 Pulse 101 05/12/18 20:00 Resp 19 05/12/18 20:00 BP 123/82 05/12/18 20:00 Pulse Ox 94 05/12/18 20:00 Intake & Output 05/12/18 05/12/18 05/13/18 06:59 18:59 06:59 Intake Total 100 350 900 Balance 100 350 900 Weight (lbs) 85.275 kg Intake: Intake, IV Amount 100 350 Meropenem 500 mg In 100 100 Sodium Chloride 0.9% 100 ml @ 100 mls/hr IV Q8H [facility] Rx#:[id number] Vancomycin HCl 1 gm In 250 Sodium Chloride 0.9% 250 ml @ 165 mls/hr IV Q8H [facility] Rx#:[id number] Oral 900 Other: # Voids 3 # Bowel Movements 1 Weight Source Bedscale Active Medications: Current Medications Acetaminophen (Tylenol) 650 mg PO Q4HR PRN PRN Reason: Pain Or Fever above 101 Stop: 07/06/18 21:39 Acetaminophen (Tylenol 650mg Supp) 650 mg RC Q6H PRN PRN Reason: fever > 100.4 Stop: 07/06/18 23:24 Last Admin: 05/08/18 00:15 Dose: 650 mg Albuterol/Ipratropium (Duoneb Neb) 3 ml HHN Q2HRT PRN PRN Reason: Wheezing Stop: 07/06/18 22:10 Albuterol/Ipratropium (Duoneb Neb) 3 ml HHN [id number] [facility] Stop: 07/07/18 18:59 Last Admin: 05/12/18 19:16 Dose: 3 ml Budesonide (Pulmicort) 0.5 mg HHN DAILYRT [facility] Stop: 07/08/18 06:59 Last Admin: 05/12/18 07:23 Dose: 0.5 mg Clonazepam (Klonopin) 1 mg PO BID [facility]; Protocol Stop: 07/09/18 12:29 Last Admin: 05/12/18 18:45 Dose: 1 mg Divalproex Sodium (Depakote Dr) 500 mg PO BID [facility]; Protocol Stop: 07/07/18 08:59 Last Admin: 05/12/18 18:58 Dose: 500 mg Haloperidol Lactate (Haldol) 5 mg IM Q6H PRN PRN Reason: Agitation Stop: 07/07/18 10:29 Last Admin: 05/09/18 21:18 Dose: 5 mg Heparin Sodium (Porcine) (Heparin) 5,000 units SUBQ Q8HR [facility] Stop: 07/07/18 20:59 Last Admin: 05/12/18 20:53 Dose: 5,000 units Hydrocortisone (Cortef) 10 mg PO BID [facility] Stop: 07/07/18 08:59 Last Admin: 05/12/18 18:45 Dose: Not Given Meropenem 500 mg/ Sodium (Chloride) 100 mls @ 100 mls/hr IV Q8H [facility] Stop: 07/07/18 00:00 Last Admin: 05/12/18 18:46 Dose: 100 mls/hr Dextrose/Sodium Chloride (D5-0.45ns) 1,000 mls @ 75 mls/hr IV .[id number] [facility] Stop: 07/07/18 14:14 Last Admin: 05/10/18 23:45 Dose: 75 mls/hr Vancomycin HCl 1 gm/ Sodium (Chloride) 250 mls @ 165 mls/hr IV Q8H [facility] Stop: 07/11/18 09:59 Last Admin: 05/12/18 18:58 Dose: 165 mls/hr Insulin Aspart (Novolog Insulin Sliding Scale) 0 units SUBQ ACHS [facility]; Protocol Stop: 07/07/18 07:29 Last Admin: 05/12/18 20:51 Dose: 3 units Insulin Detemir (Levemir Insulin) 12 units SUBQ DAILY [facility]; Protocol Stop: 07/07/18 08:59 Last Admin: 05/12/18 09:26 Dose: 12 units Ketorolac Tromethamine (Toradol) 15 mg IVP Q6HR PRN PRN Reason: Pain (Moderate) Stop: 05/13/18 16:11 Last Admin: 05/12/18 09:01 Dose: 15 mg Lactobacillus Rhamnosus (Culturelle 15b) 1 each PO DAILY [facility] Stop: 07/07/18 13:59 Last Admin: 05/12/18 09:23 Dose: 1 each Levothyroxine Sodium 0.075 mg/ (Levothyroxine Sodium 0.1 mg) 0.175 mg PO QDAC [facility] Stop: 07/07/18 07:29 Last Admin: 05/12/18 07:17 Dose: 0.175 mg Miscellaneous (Vte Chemical Prophylaxis Screen/ Admission) 1 ea PRN PRN PRN Reason: PROTOCOL Stop: 07/07/18 09:07 Miscellaneous (Probiotic Screen) 1 ea PRN PRN PRN Reason: PROTOCOL Stop: 07/07/18 12:10 Miscellaneous (Vancomycin Iv Per Pharmacy) 1 ea PRN PRN PRN Reason: PROTOCOL Stop: 07/07/18 18:52 Ondansetron HCl (Zofran) 4 mg IV Q6H PRN PRN Reason: Nausea / Vomiting Stop: 07/06/18 23:30 Polyethylene Glycol (Miralax) 17 gm PO BID [facility] Stop: 07/09/18 16:59 Last Admin: 05/12/18 18:57 Dose: Not Given Quetiapine Fumarate (Seroquel) 25 mg PO BID [facility]; Protocol Stop: 07/11/18 16:59 Last Admin: 05/12/18 18:45 Dose: 25 mg General: No acute distress Cardiovascular: Regular rate Lungs: Other (rales) Abdomen: Soft, no Tender Assessment/Plan - Assessment Assessment: Pneumonia Dysphagia Agitation Hypothyroidism Back pain - Plan Plan: Continue meropenem Puree diet with thickend liquids started SNIF DC Plan in progress Klonopin as needed Continue synthroid Oxygen and bronchodilators Plan of care discussed with nursing staff Nutritional Asmnt/Malnutr-PDOC - Dietary Evaluation Malnutrition Findings (Please click <Entered> for more info): Nutritional Asmnt/Malnutrition Start: 05/08/18 15: 33 Text: Status: Complete Freq: Protocol: Document 05/08/18 15:33 [email or web address] (Rec: 05/08/18 15:50 [id number] [id number]) Nutritional Asmnt/Malnutrition Patient General Information Nutritional Screening High Risk Consult Diagnosis brochitis, possible PNA Pertinent Medical Hx/Surgical Hx no H&P as of 05/08 3:30pm Subjective Information Pt seen lying in bed receiving breathing treatment at time of visit. Per RN, pt kept on NPO status. Consult received for left foot wound. Current Diet Order/ Nutrition Support NPO Pertinent Medications D5-0.45ns, novolog, levmir, culturelle, levothyroxine, vancomycin Pertinent Labs 05/08 Cr 0.6, glucose 150, POC 123-144 05/07 Glucose 197 Nutritional Hx/Data Height 1.7 m Height (Calculated Centimeters) 170.2 Current Weight (lbs) 83.915 kg Weight (Calculated Kilograms) 83.9 Weight (Calculated Grams) 48073.6 [place] Body Weight 148 Body Mass Index (BMI) 29.0 Weight Status Overweight GI Symptoms Last BM none noted Skin Integrity/Comment: per RN note 05/08: open wound on left foot, and skin irritation with open skin in inner buttocks Current %PO Negligible < 25% Estimated Nutritional Goals BEE in Kcals: Using Current wt Calories/Kcals/Kg 23-27 Kcals Calculated [id number] Protein: Using Current wt Protein g/k Protein Calculated 84 Fluid: ml [id number] (1ml/kcal) Nutritional Problem 1. Problem Problem inadequate energy intake Etiology increased nutrition needs d/t wound Signs/Symptoms: PO on NPO status Intervention/Recommendation Comments 1. Monitor NPO status. Recommend swallow eval before initiating oral diet. Recommend CCHO diet with texture per ST, add Jalen BID for wound healing. 2. Monitor wt, labs and skin integrity 3. F/U as high risk in 2 days. Expected Outcomes/Goals Expected Outcomes/Goals 1. PO intake to meet at least 75% of nutritional needs. 2. Wt stability, skin to heal, labs to approach WNL.
[2018-05-13] MEDS: Meropenem 500 MG in Sodium Chloride 0.9% 100 ML IV SCH ×2 (00:51→10:16)
[2018-05-13] MEDS: INSULIN ASPART SLIDING SCALE 100 UNITS/ML UNIT SUBQ SCH ×4 (06:37→21:06)
[2018-05-13] MEDS: Albuterol/Ipratropium Neb 3 ML AERS HHN SCH ×4 (06:59→19:48)
[2018-05-13] MEDS: Budesonide 0.5 Mg/2 mL Ud HHN SCH (07:27)
--- NOTE | 2018-05-13 09:05 | Consultation ---
DATE OF CONSULTATION: 05/12/2018 REASON FOR CONSULTATION: The patient much calmer, seen today. HISTORY OF PRESENT ILLNESS: A 62-year-old male, still confused, disoriented, still sometimes going out for his mom, but much less. He is in fact doing so well. These has been accepted to a lower level of care or a correction home. The patient's daughter is also aware. The patient is sleeping, but arousable. He is pretty sensitive to the Klonopin, if he remains too sedated, moving forward okay and recommended to lower the Klonopin, although the dosing is not very high is only on a mg twice daily, also Seroquel 50 mg twice daily. I will lower the dosage of the Seroquel to 25 mg twice daily. MENTAL STATUS EXAMINATION: Calm, sleeping, but arousable, confused, still asking for his mom, dad, not making any sense. No SI, no suicidal gestures. No HI. No overt delusions just a lot of confusion and better impulse control. PROVISIONAL DIAGNOSIS: Likely cognitive impairment. The patient appears demented possibly a protracted delirium as well. Mood, unspecified; anxiety, unspecified. Under medical please see full H and P. RECOMMENDATIONS AND PLAN: I will lower Seroquel dosing. I will monitor if the patient remains in the hospital further. JOB# [id number]
--- NOTE | 2018-05-13 09:13 | Infectious Disease Prog Note ---
Infectious Disease Subjective - Review of Systems Service Date: 05/12/18 (cc pn) Events since last encounter: cx noted ros no fevr o/e vsschaest vesicular abd soft ext pilse Vital Signs - 24 hr 05/12/18 05/12/18 05/12/18 11:03 12:00 13:04 Temp 97.5 F HR 91 91 RR 20 18 19 BP 145/82 O2 Sat % 96 96 05/12/18 05/12/18 05/12/18 13:41 15:44 16:00 Temp 97.5 F 98.3 F HR 91 95 86 RR 19 20 19 BP 145/82 165/105 O2 Sat % 96 97 98 05/12/18 05/12/18 05/12/18 19:15 20:00 21:25 Temp 98.4 F HR 82 101 RR 18 18 15 BP 123/82 O2 Sat % 97 94 96 05/12/18 05/13/18 05/13/18 22:35 00:00 00:30 Temp HR RR 16 18 15 BP O2 Sat % 97 96 05/13/18 05/13/18 05/13/18 03:10 04:00 05:15 Temp 97.8 F HR 75 RR 15 21 15 BP 121/76 O2 Sat % 97 99 97 05/13/18 05/13/18 05/13/18 07:01 07:27 08:42 Temp 96.3 F HR 73 75 80 RR 18 20 18 BP 133/86 O2 Sat % 97 98 99 Microbiology 05/07/18 22:20 Blood - Preliminary NO GROWTH AFTER 48 HOURS 05/07/18 22:10 Blood - Preliminary NO GROWTH AFTER 48 HOURS 05/09/18 05:35 Urine,Clean Catch Urine Culture - Final 05/09/18 10:15 Sputum - Expectorated Sputum Gram Stain - Final 05/09/18 10:15 Sputum - Expectorated Sputum Sputum Culture - Final 05/08/18 19:40 Sputum - Expectorated Sputum Gram Stain - Final 05/08/18 19:40 Sputum - Expectorated Sputum Sputum Culture - Final Diagnoses TYPE 2 DIABETES MELLITUS WITHOUT COMPLICATIONS (05/07/18) UNSPECIFIED DEMENTIA WITHOUT BEHAVIORAL DISTURBANCE (05/07/18) PNEUMONIA, UNSPECIFIED ORGANISM (05/07/18) DYSPHAGIA, UNSPECIFIED (05/07/18) WEAKNESS (05/07/18) Current Medications Acetaminophen (Tylenol) 650 mg PO Q4HR PRN PRN Reason: Pain Or Fever above 101 Stop: 07/06/18 21:39 Acetaminophen (Tylenol 650mg Supp) 650 mg RC Q6H PRN PRN Reason: fever > 100.4 Stop: 07/06/18 23:24 Last Admin: 05/08/18 00:15 Dose: 650 mg Albuterol/Ipratropium (Duoneb Neb) 3 ml HHN Q2HRT PRN PRN Reason: Wheezing Stop: 07/06/18 22:10 Albuterol/Ipratropium (Duoneb Neb) 3 ml HHN [id number] COUNTS INCLUDE 234 BEDS AT [facility] Stop: 07/07/18 18:59 Last Admin: 05/13/18 06:59 Dose: 3 ml Budesonide (Pulmicort) 0.5 mg HHN DAILYRT COUNTS INCLUDE 234 BEDS AT [facility] Stop: 07/08/18 06:59 Last Admin: 05/13/18 07:27 Dose: 0.5 mg Clonazepam (Klonopin) 1 mg PO BID COUNTS INCLUDE 234 BEDS AT [facility]; Protocol Stop: 07/09/18 12:29 Last Admin: 05/12/18 18:45 Dose: 1 mg Divalproex Sodium (Depakote Dr) 500 mg PO BID COUNTS INCLUDE 234 BEDS AT [facility]; Protocol Stop: 07/07/18 08:59 Last Admin: 05/12/18 18:58 Dose: 500 mg Haloperidol Lactate (Haldol) 5 mg IM Q6H PRN PRN Reason: Agitation Stop: 07/07/18 10:29 Last Admin: 05/09/18 21:18 Dose: 5 mg Heparin Sodium (Porcine) (Heparin) 5,000 units SUBQ Q8HR COUNTS INCLUDE 234 BEDS AT [facility] Stop: 07/07/18 20:59 Last Admin: 05/13/18 05:18 Dose: 5,000 units Hydrocortisone (Cortef) 10 mg PO BID COUNTS INCLUDE 234 BEDS AT [facility] Stop: 07/07/18 08:59 Last Admin: 05/12/18 18:45 Dose: Not Given Meropenem 500 mg/ Sodium (Chloride) 100 mls @ 100 mls/hr IV Q8H COUNTS INCLUDE 234 BEDS AT [facility] Stop: 07/07/18 00:00 Last Infusion: 05/13/18 04:58 Dose: Infused Dextrose/Sodium Chloride (D5-0.45ns) 1,000 mls @ 75 mls/hr IV .[id number] COUNTS INCLUDE 234 BEDS AT [facility] Stop: 07/07/18 14:14 Last Admin: 05/10/18 23:45 Dose: 75 mls/hr Vancomycin HCl 1 gm/ Sodium (Chloride) 250 mls @ 165 mls/hr IV Q8H COUNTS INCLUDE 234 BEDS AT [facility] Stop: 07/11/18 09:59 Last Infusion: 05/13/18 04:58 Dose: Infused Insulin Aspart (Novolog Insulin Sliding Scale) 0 units SUBQ ACHS COUNTS INCLUDE 234 BEDS AT [facility]; Protocol Stop: 07/07/18 07:29 Last Admin: 05/13/18 06:37 Dose: Not Given Insulin Detemir (Levemir Insulin) 12 units SUBQ DAILY COUNTS INCLUDE 234 BEDS AT [facility]; Protocol Stop: 07/07/18 08:59 Last Admin: 05/12/18 09:26 Dose: 12 units Lactobacillus Rhamnosus (Culturelle 15b) 1 each PO DAILY COUNTS INCLUDE 234 BEDS AT [facility] Stop: 07/07/18 13:59 Last Admin: 05/12/18 09:23 Dose: 1 each Levothyroxine Sodium 0.075 mg/ (Levothyroxine Sodium 0.1 mg) 0.175 mg PO QDAC COUNTS INCLUDE 234 BEDS AT [facility] Stop: 07/07/18 07:29 Last Admin: 05/13/18 06:38 Dose: 0.175 mg Miscellaneous (Vte Chemical Prophylaxis Screen/ Admission) 1 ea PRN PRN PRN Reason: PROTOCOL Stop: 07/07/18 09:07 Miscellaneous (Probiotic Screen) 1 ea PRN PRN PRN Reason: PROTOCOL Stop: 07/07/18 12:10 Miscellaneous (Vancomycin Iv Per Pharmacy) 1 ea PRN PRN PRN Reason: PROTOCOL Stop: 07/07/18 18:52 Ondansetron HCl (Zofran) 4 mg IV Q6H PRN PRN Reason: Nausea / Vomiting Stop: 07/06/18 23:30 Polyethylene Glycol (Miralax) 17 gm PO BID COUNTS INCLUDE 234 BEDS AT [facility] Stop: 07/09/18 16:59 Last Admin: 05/12/18 18:57 Dose: Not Given Quetiapine Fumarate (Seroquel) 25 mg PO BID COUNTS INCLUDE 234 BEDS AT [facility]; Protocol Stop: 07/11/18 16:59 Last Admin: 05/12/18 18:45 Dose: 25 mg Allergies Allergy/AdvReac Type Severity Reaction Status Date / Time morphine Allergy Verified 04/12/18 19:45 Penicillins [PCN] Allergy Verified 04/12/18 19:45 Subjective: pn hpi- pt inf increased wbc decresed cx noted ros no efrv o/e vs chaest claer absd soft ext pulse Current Medications Generic Name Dose Route Start Last Admin Trade Name Freq PRN Reason Stop Dose Admin Acetaminophen 650 mg 05/07/18 21:40 Tylenol PO 07/06/18 21:39 Q4HR PRN Pain Or Fever above 101 Acetaminophen 650 mg 05/07/18 23:25 05/08/18 00:15 Tylenol 650mg Supp RC 07/06/18 23:24 650 mg Q6H PRN Administration fever > 100.4 Albuterol/Ipratropium 3 ml 05/07/18 22:11 Duoneb Neb [facility] 07/06/18 22:10 Q2HRT PRN Wheezing Albuterol/Ipratropium 3 ml 05/08/18 19:00 05/09/18 19:16 Duoneb Neb N 07/07/18 18:59 3 ml [id number] ZENA Administration Budesonide 0.5 mg 05/09/18 07:00 05/09/18 11:42 Pulmicort N 07/08/18 06:59 0.5 mg DAILYRT ZENA Administration Clonazepam 0.5 mg 05/08/18 16:04 05/09/18 16:39 Klonopin PO 07/07/18 16:03 0.5 mg BID PRN Administration Agitation Protocol Divalproex Sodium 500 mg 05/08/18 09:00 05/09/18 16:[address] PO 07/07/18 08:59 500 mg BID ZENA Administration Protocol Haloperidol Lactate 5 mg 05/08/18 11:11 05/09/18 21:18 Haldol IM 07/07/18 10:29 5 mg Q6H PRN Administration Agitation Heparin Sodium (Porcine) 5,000 units 05/08/18 21:00 05/09/18 21:18 Heparin SUBQ 07/07/18 20:59 5,000 units Q8HR ZENA Administration Hydrocortisone 10 mg 05/08/18 09:00 05/09/18 17:21 Cortef PO 07/07/18 08:59 10 mg BID ZENA Administration Meropenem 500 mg/ Sodium 100 mls @ 100 mls/hr 05/08/18 00:00 05/10/18 00:23 Chloride IV 07/07/18 00:00 100 mls/hr Q8H ZENA Administration Dextrose/Sodium Chloride 1,000 mls @ 75 mls/hr 05/08/18 14:15 05/09/18 06:46 D5-0.45ns IV 07/07/18 14:14 75 mls/hr .[id number] ZENA Administration Vancomycin HCl 1.5 gm/ Sodium 500 mls @ 250 mls/hr 05/09/18 10:00 05/09/18 17 :24 Chloride IV 07/08/18 09:59 250 mls/hr Q8H ZENA Administration Insulin Aspart 0 units 05/08/18 07:30 05/09/18 21:00 Novolog Insulin Sliding Scale SUBQ 07/07/18 07:29 Not Given ACHS ZENA Protocol Insulin Detemir 12 units 05/08/18 09:00 05/09/18 08:14 Levemir Insulin SUBQ 07/07/18 08:59 12 units DAILY ZENA Administration Protocol Ketorolac Tromethamine 15 mg 05/08/18 16:12 05/09/18 21:18 Toradol IVP 05/13/18 16:11 15 mg Q6HR PRN Administration Pain (Moderate) Lactobacillus Rhamnosus 1 each 05/08/18 14:00 05/09/18 08:12 Culturelle 15b PO 07/07/18 13:59 1 each DAILY ZENA Administration Levothyroxine Sodium 0.075 mg/ 0.175 mg 05/08/18 07:30 05/09/18 06:48 Levothyroxine Sodium 0.1 mg PO 07/07/18 07:29 0.175 mg QDAC ZENA Administration Miscellaneous 1 05/08/18 09:08 Vte Chemical Prophylaxis Screen/ Admission 07/07/18 09:07 PRN PRN PROTOCOL Miscellaneous 1 05/08/18 12:11 Probiotic Screen 07/07/18 12:10 PRN PRN PROTOCOL Miscellaneous 1 05/08/18 18:53 Vancomycin Iv Per Pharmacy 07/07/18 18:52 PRN PRN PROTOCOL Ondansetron HCl 4 mg 05/07/18 23:31 Zofran IV 07/06/18 23:30 Q6H PRN Nausea / Vomiting Quetiapine Fumarate 50 mg 05/09/18 17:00 Seroquel PO 07/08/18 16:59 BID COUNTS INCLUDE 234 BEDS AT [facility] Protocol Discontinued Medications Generic Name Dose Route Start Last Admin Trade Name Freq PRN Reason Stop Dose Admin Albuterol/Ipratropium 3 ml 05/08/18 01:00 Duoneb Neb [facility] 07/07/18 00:59 Q6HRT ZENA Albuterol/Ipratropium 3 ml 05/08/18 01:00 05/09/18 01:31 Duoneb [facility] 07/07/18 00:59 3 ml Q6HRT ZENA Administration Albuterol/Ipratropium 3 ml 05/08/18 01:00 Duoneb [facility] 07/07/18 00:59 Q6HRT COUNTS INCLUDE 234 BEDS AT [facility] Budesonide 0.5 mg 05/08/18 07:00 05/09/18 07:18 Pulmicort [facility] 07/07/18 06:59 0.5 mg BIDRT ZENA Administration Haloperidol Lactate 5 mg 05/08/18 10:17 Haldol IVP 07/07/18 10:29 Q6H PRN Agitation Haloperidol Lactate Confirm 05/08/18 11:15 Haldol Administered 05/08/18 11:16 Dose 5 mg .ROUTE .STK-MED ONE Heparin Sodium (Porcine) 5,000 units 05/08/18 09:00 05/08/18 21:27 Heparin SUBQ 07/07/18 08:59 5,000 units Q12HR ZENA Administration Piperacillin Sod/Tazobactam 50 mls @ 100 mls/hr 05/07/18 22:00 Sod 4.5 gm/ Sodium Chloride IV 05/14/18 21:59 Q8HR ZENA Sodium Chloride 1,000 mls @ 80 mls/hr 05/08/18 00:00 05/08/18 00:14 Nacl 0.9% IV 07/07/18 00:00 80 mls/hr .[id number] ZENA Administration Vancomycin HCl 1 gm/ Sodium 250 mls @ 165 mls/hr 05/08/18 00:00 05/08/18 03: 01 Chloride IV 05/08/18 01:30 Infused ONCE ONE Infusion Vancomycin HCl 1.5 gm/ Sodium 500 mls @ 250 mls/hr 05/08/18 10:00 05/09/18 01 :08 Chloride IV 07/07/18 09:59 250 mls/hr Q12H ZENA Administration Vancomycin HCl 1 gm/ Sodium 250 mls @ as directed 05/07/18 11:59 Chloride IV 05/07/18 12:00 .STK-MED ONE Meropenem 500 mg/ Sodium 100 mls @ as directed 05/07/18 11:58 Chloride IV 05/07/18 11:59 .STK-MED ONE Levothyroxine Sodium 0.175 mg 05/08/18 07:30 Synthroid PO 07/07/18 07:29 QDAC ZENA Miscellaneous 1 05/07/18 23:25 Vancomycin Iv Per Pharmacy 07/06/18 23:24 PRN PRN PROTOCOL Miscellaneous 1 05/08/18 18:55 Zosyn Iv Per Pharmacy 07/07/18 18:54 PRN PRN PROTOCOL Miscellaneous 1 05/08/18 18:55 Vancomycin Iv Per Pharmacy 07/06/18 23:24 PRN PRN PROTOCOL Ondansetron HCl 4 mg 05/07/18 23:29 05/08/18 00:15 Zofran IV 05/07/18 23:30 4 mg ONCE ONE Administration Quetiapine Fumarate 50 mg 05/09/18 16:30 05/09/18 16:39 Seroquel PO 05/09/18 16:31 50 mg X1 ONE Administration Protocol Microbiology 05/07/18 22:20 Blood - Preliminary NO GROWTH AFTER 48 HOURS 05/07/18 22:10 Blood - Preliminary NO GROWTH AFTER 48 HOURS 05/09/18 10:15 Sputum - Expectorated Sputum Gram Stain - Final 05/09/18 10:15 Sputum - Expectorated Sputum Sputum Culture - Final 05/08/18 19:40 Sputum - Expectorated Sputum Gram Stain - Final 05/08/18 19:40 Sputum - Expectorated Sputum Sputum Culture - Final Vital Signs - 24 hr 05/09/18 05/09/18 05/09/18 03:41 04:00 05:33 Temp 98.8 F HR 90 RR 18 18 24 BP 122/70 O2 Sat % 97 97 97 05/09/18 05/09/18 05/09/18 07:22 07:35 08:00 Temp 98.6 F HR 94 92 78 RR 20 20 18 BP 136/86 O2 Sat % 96 96 97 05/09/18 05/09/18 05/09/18 10:00 11:44 11:47 Temp 98.6 F 98.7 F HR 78 91 97 RR 18 20 18 BP 136/86 155/92 O2 Sat % 96 95 05/09/18 05/09/18 05/09/18 12:00 14:00 15:43 Temp 98.7 F 98.5 F HR 97 80 97 RR 18 18 20 BP 155/92 145/85 O2 Sat % 98 05/09/18 05/09/18 05/09/18 15:56 16:00 18:00 Temp 98.8 F 98.8 F 98.5 F HR 97 97 90 RR 18 18 18 BP 159/91 159/91 150/80 O2 Sat % 97 05/09/18 05/09/18 05/09/18 19:18 20:00 21:05 Temp 98.2 F HR 90 88 RR 18 19 22 BP 132/86 O2 Sat % 97 96 100 05/09/18 05/10/18 05/10/18 22:40 00:00 00:45 Temp 98.6 F HR 84 RR 20 19 22 BP 136/88 O2 Sat % 98 96 99 Diagnoses TYPE 2 DIABETES MELLITUS WITHOUT COMPLICATIONS (05/07/18) UNSPECIFIED DEMENTIA WITHOUT BEHAVIORAL DISTURBANCE (05/07/18) PNEUMONIA, UNSPECIFIED ORGANISM (05/07/18) DYSPHAGIA, UNSPECIFIED (05/07/18) WEAKNESS (05/07/18) Infectious Disease Objective - Results Result Diagrams: 05/11/18 06:06 05/11/18 06:06 Recent Labs: Laboratory Last Values WBC 7.3 Th/cmm (4.8-10.8) 05/11/18 06:06 RBC 3.56 Mil/cmm (4.30-5.70) L 05/11/18 06:06 Hgb 10.7 gm/dL (12-16) L 05/11/18 06:06 Hct 32.3 % (41.0-60) L 05/11/18 06:06 MCV 90.7 fl (80-99) 05/11/18 06:06 MCH 30.1 pg (26.0-30.0) H 05/11/18 06:06 MCHC Differential 33.2 pg (28.0-36.0) 05/11/18 06:06 RDW 15.0 % (11.5-20.0) 05/11/18 06:06 Plt Count 337 Th/cmm (150-400) 05/11/18 06:06 MPV 6.7 fl 05/11/18 06:06 Add Manual Diff YES 05/08/18 06:10 Neutrophils % 70.6 % (40.0-80.0) 05/11/18 06:06 Band Neutrophils % 3 % (0-10) 05/08/18 06:10 Lymphocytes % 16.0 % (20.0-50.0) L 05/11/18 06:06 Monocytes % 11.3 % (2.0-10.0) H 05/11/18 06:06 Eosinophils % 1.3 % (0.0-5.0) 05/11/18 06:06 Basophils % 0.8 % (0.0-2.0) 05/11/18 06:06 Neutrophils (Manual) 81 % (40-80) H 05/08/18 06:10 Lymphocytes 10 % (20-50) L 05/08/18 06:10 Monocytes 6 % (2-10) 05/08/18 06:10 Eosinophils 0 % (0-5) 05/08/18 06:10 Basophils 0 % (0-3) 05/08/18 06:10 Platelet Estimate ADEQUATE (NORMAL) 05/07/18 22:10 PT 11.7 SECONDS (9.5-11.5) H 05/09/18 04:30 INR 1.14 (0.5-1.4) 05/09/18 04:30 PTT (Actin FS) 31.9 SECONDS (26.0-38.0) 05/09/18 04:30 Specimen Source Arterial 05/10/18 09:35 Sample Site Right Radial 05/10/18 09:35 pH 7.48 (7.35-7.45) H 05/10/18 09:35 pCO2 40.0 mmHg (35.0-45.0) 05/10/18 09:35 pO2 57.0 mmHg (80.0-100.0) L 05/10/18 09:35 HCO3 29.3 mEq/L (20.0-26.0) H 05/10/18 09:35 Base Excess 5.8 mEq/L (-3.0-3.0) H 05/10/18 09:35 O2 Saturation 91.0 % (92.0-100.0) L 05/10/18 09:35 Abilio Test YES 05/10/18 09:35 Vent Rate NA 05/10/18 09:35 Inspired O2 21 05/10/18 09:35 Tidal Volume NA 05/10/18 09:35 PEEP NA 05/10/18 09:35 Pressure (ins/psv/peep) NA 05/10/18 09:35 Critical Value E.SOLIS 05/10/18 09:35 Sodium 141 mEq/L (136-145) 05/11/18 06:06 Potassium 3.0 mEq/L (3.5-5.1) L 05/11/18 06:06 Chloride 106 mEq/L (98-107) 05/11/18 06:06 Carbon Dioxide 26.4 mEq/L (21.0-31.0) 05/11/18 06:06 Anion Gap 11.6 (7.0-16.0) 05/11/18 06:06 BUN 9 mg/dL (7-25) 05/11/18 06:06 Creatinine 0.5 mg/dL (0.7-1.3) L 05/11/18 06:06 Est GFR ( Amer) > 60.0 ml/min (>90) 05/11/18 06:06 Est GFR (Non-Af Amer) > 60.0 ml/min 05/11/18 06:06 BUN/Creatinine Ratio 18.0 05/11/18 06:06 Glucose 138 mg/dL (70-105) H 05/11/18 06:06 POC Glucose 81 MG/DL (70 - 105) 05/13/18 06:36 Whole Bld Lactic Acid 0.99 mmol/L (0.60-1.99) 05/07/18 22:10 Calcium 9.2 mg/dL (8.6-10.3) 05/11/18 06:06 Magnesium 1.8 mg/dL (1.9-2.7) L 05/09/18 04:30 Total Bilirubin 0.3 mg/dL (0.3-1.0) 05/11/18 06:06 AST 14 U/L (13-39) 05/11/18 06:06 ALT 20 U/L (7-52) 05/11/18 06:06 Alkaline Phosphatase 71 U/L (34-104) 05/11/18 06:06 Ammonia 36 umol/L (16-53) 05/10/18 09:00 Total Protein 6.5 gm/dL (6.0-8.3) 05/11/18 06:06 Albumin 3.2 gm/dL (4.2-5.5) L 05/11/18 06:06 Globulin 3.3 gm/dL 05/11/18 06:06 Albumin/Globulin Ratio 1.0 (1.0-1.8) 05/11/18 06:06 Free T3 1.2 pg/mL (2.0-4.4) L 05/09/18 04:30 TSH 9.60 uIU/ml (0.34-5.60) H 05/09/18 04:30 Urine Source CLEAN C 05/09/18 05:35 Urine Color YELLOW 05/09/18 05:35 Urine Clarity CLEAR (CLEAR) 05/09/18 05:35 Urine pH 7.0 (4.6 - 8.0) 05/09/18 05:35 Ur Specific [place] 1.025 (1.005-1.030) 05/09/18 05:35 Urine Protein NEGATIVE mg/dL (NEGATIVE) 05/09/18 05:35 Urine Glucose (UA) NEGATIVE mg/dL (NEGATIVE) 05/09/18 05:35 Urine Ketones TRACE mg/dL (NEGATIVE) 05/09/18 05:35 Urine Blood NEGATIVE (NEGATIVE) 05/09/18 05:35 Urine Nitrate NEGATIVE (NEGATIVE) 05/09/18 05:35 Urine Bilirubin NEGATIVE (NEGATIVE) 05/09/18 05:35 Urine Urobilinogen 4.0 E.U./dL (0.2 - 1.0) H 05/09/18 05:35 Ur Leukocyte Esterase NEGATIVE (NEGATIVE) 05/09/18 05:35 Urine RBC 0-2 /hpf (0-5) H 05/09/18 05:35 Urine WBC 0-2 /hpf (0-5) 05/09/18 05:35 Ur Epithelial Cells FEW /lpf (FEW) 05/09/18 05:35 Urine Bacteria NONE SEEN /hpf (NONE SEEN) 05/09/18 05:35 Vancomycin Trough 27.8 ug/mL (5-10) H 05/12/18 08:45 Valproic Acid < 10.0 ug/mL (50.0-100.0) L 05/12/18 08:45 Influenza A (Rapid) NEG FOR INF A 05/08/18 01:00 Influenza B (Rapid) NEG FOR INF B 05/08/18 01:00 - Physical Exam Vitals and I&O: Vital Signs Temp 96.3 F 05/13/18 08:42 Pulse 80 05/13/18 08:42 Resp 18 05/13/18 08:42 BP 133/86 05/13/18 08:42 Pulse Ox 99 05/13/18 08:42 Intake & Output 05/12/18 05/13/18 05/13/18 18:59 06:59 18:59 Intake Total 350 1600 200 Balance 350 1600 200 Weight (lbs) 105.687 kg 105.687 kg Intake: Intake, IV Amount 350 700 Meropenem 500 mg In 100 200 Sodium Chloride 0.9% 100 ml @ 100 mls/hr IV Q8H COUNTS INCLUDE 234 BEDS AT THE [facility] Rx#:[id number] Vancomycin HCl 1 gm In 250 500 Sodium Chloride 0.9% 250 ml @ 165 mls/hr IV Q8H COUNTS INCLUDE 234 BEDS AT [facility] Rx#:[id number] Oral 900 200 Other: # Voids 3 2 # Bowel Movements 1 0 Weight Source Bedscale Bedscale Active Medications: Current Medications Acetaminophen (Tylenol) 650 mg PO Q4HR PRN PRN Reason: Pain Or Fever above 101 Stop: 07/06/18 21:39 Acetaminophen (Tylenol 650mg Supp) 650 mg RC Q6H PRN PRN Reason: fever > 100.4 Stop: 07/06/18 23:24 Last Admin: 05/08/18 00:15 Dose: 650 mg Albuterol/Ipratropium (Duoneb Neb) 3 ml HHN Q2HRT PRN PRN Reason: Wheezing Stop: 07/06/18 22:10 Albuterol/Ipratropium (Duoneb Neb) 3 ml HHN [id number] COUNTS INCLUDE 234 BEDS AT [facility] Stop: 07/07/18 18:59 Last Admin: 05/13/18 06:59 Dose: 3 ml Budesonide (Pulmicort) 0.5 mg HHN DAILYRT COUNTS INCLUDE 234 BEDS AT [facility] Stop: 07/08/18 06:59 Last Admin: 05/13/18 07:27 Dose: 0.5 mg Clonazepam (Klonopin) 1 mg PO BID COUNTS INCLUDE 234 BEDS AT [facility]; Protocol Stop: 07/09/18 12:29 Last Admin: 05/12/18 18:45 Dose: 1 mg Divalproex Sodium (Depakote Dr) 500 mg PO BID COUNTS INCLUDE 234 BEDS AT [facility]; Protocol Stop: 07/07/18 08:59 Last Admin: 05/12/18 18:58 Dose: 500 mg Haloperidol Lactate (Haldol) 5 mg IM Q6H PRN PRN Reason: Agitation Stop: 07/07/18 10:29 Last Admin: 05/09/18 21:18 Dose: 5 mg Heparin Sodium (Porcine) (Heparin) 5,000 units SUBQ Q8HR COUNTS INCLUDE 234 BEDS AT [facility] Stop: 07/07/18 20:59 Last Admin: 05/13/18 05:18 Dose: 5,000 units Hydrocortisone (Cortef) 10 mg PO BID COUNTS INCLUDE 234 BEDS AT [facility] Stop: 07/07/18 08:59 Last Admin: 05/12/18 18:45 Dose: Not Given Meropenem 500 mg/ Sodium (Chloride) 100 mls @ 100 mls/hr IV Q8H COUNTS INCLUDE 234 BEDS AT [facility] Stop: 07/07/18 00:00 Last Infusion: 05/13/18 04:58 Dose: Infused Dextrose/Sodium Chloride (D5-0.45ns) 1,000 mls @ 75 mls/hr IV .[id number] COUNTS INCLUDE 234 BEDS AT [facility] Stop: 07/07/18 14:14 Last Admin: 05/10/18 23:45 Dose: 75 mls/hr Vancomycin HCl 1 gm/ Sodium (Chloride) 250 mls @ 165 mls/hr IV Q8H COUNTS INCLUDE 234 BEDS AT [facility] Stop: 07/11/18 09:59 Last Infusion: 05/13/18 04:58 Dose: Infused Insulin Aspart (Novolog Insulin Sliding Scale) 0 units SUBQ ACHS COUNTS INCLUDE 234 BEDS AT [facility]; Protocol Stop: 07/07/18 07:29 Last Admin: 05/13/18 06:37 Dose: Not Given Insulin Detemir (Levemir Insulin) 12 units SUBQ DAILY COUNTS INCLUDE 234 BEDS AT [facility]; Protocol Stop: 07/07/18 08:59 Last Admin: 05/12/18 09:26 Dose: 12 units Lactobacillus Rhamnosus (Culturelle 15b) 1 each PO DAILY COUNTS INCLUDE 234 BEDS AT [facility] Stop: 07/07/18 13:59 Last Admin: 05/12/18 09:23 Dose: 1 each Levothyroxine Sodium 0.075 mg/ (Levothyroxine Sodium 0.1 mg) 0.175 mg PO QDAC COUNTS INCLUDE 234 BEDS AT THE [facility] Stop: 07/07/18 07:29 Last Admin: 05/13/18 06:38 Dose: 0.175 mg Miscellaneous (Vte Chemical Prophylaxis Screen/ Admission) 1 ea PRN PRN PRN Reason: PROTOCOL Stop: 07/07/18 09:07 Miscellaneous (Probiotic Screen) 1 ea PRN PRN PRN Reason: PROTOCOL Stop: 07/07/18 12:10 Miscellaneous (Vancomycin Iv Per Pharmacy) 1 ea PRN PRN PRN Reason: PROTOCOL Stop: 07/07/18 18:52 Ondansetron HCl (Zofran) 4 mg IV Q6H PRN PRN Reason: Nausea / Vomiting Stop: 07/06/18 23:30 Polyethylene Glycol (Miralax) 17 gm PO BID COUNTS INCLUDE 234 BEDS AT THE [facility] Stop: 07/09/18 16:59 Last Admin: 05/12/18 18:57 Dose: Not Given Quetiapine Fumarate (Seroquel) 25 mg PO BID COUNTS INCLUDE 234 BEDS AT THE [facility]; Protocol Stop: 07/11/18 16:59 Last Admin: 05/12/18 18:45 Dose: 25 mg Nutritional Asmnt/Malnutr-PDOC - Dietary Evaluation Malnutrition Findings (Please click <Entered> for more info): Nutritional Asmnt/Malnutrition Start: 05/08/18 15: 33 Text: Status: Complete Freq: Protocol: Document 05/08/18 15:33 LCHENG (Rec: 05/08/18 15:50 [email or web address] [id number]) Nutritional Asmnt/Malnutrition Patient General Information Nutritional Screening High Risk Consult Diagnosis brochitis, possible PNA Pertinent Medical Hx/Surgical Hx no H&P as of 05/08 3:30pm Subjective Information Pt seen lying in bed receiving breathing treatment at time of visit. Per RN, pt kept on NPO status. Consult received for left foot wound. Current Diet Order/ Nutrition Support NPO Pertinent Medications D5-0.45ns, novolog, levmir, culturelle, levothyroxine, vancomycin Pertinent Labs 05/08 Cr 0.6, glucose 150, POC 123-144 05/07 Glucose 197 Nutritional Hx/Data Height 1.7 m Height (Calculated Centimeters) 170.2 Current Weight (lbs) 83.915 kg Weight (Calculated Kilograms) 83.9 Weight (Calculated Grams) 60676.6 [place] Body Weight 148 Body Mass Index (BMI) 29.0 Weight Status Overweight GI Symptoms Last BM none noted Skin Integrity/Comment: per RN note 05/08: open wound on left foot, and skin irritation with open skin in inner buttocks Current %PO Negligible < 25% Estimated Nutritional Goals BEE in Kcals: Using Current wt Calories/Kcals/Kg 23-27 Kcals Calculated 5106-8305 Protein: Using Current wt Protein g/k Protein Calculated 84 Fluid: ml 1931-2267ml (1ml/kcal) Nutritional Problem 1. Problem Problem inadequate energy intake Etiology increased nutrition needs d/t wound Signs/Symptoms: PO on NPO status Intervention/Recommendation Comments 1. Monitor NPO status. Recommend swallow eval before initiating oral diet. Recommend CCHO diet with texture per ST, add Jalen BID for wound healing. 2. Monitor wt, labs and skin integrity 3. F/U as high risk in 2 days. Expected Outcomes/Goals Expected Outcomes/Goals 1. PO intake to meet at least 75% of nutritional needs. 2. Wt stability, skin to heal, labs to approach WNL.
[2018-05-13] MEDS: Lactobacillus Rhamnosus GG 15 Billion CFU CAP.SPRINK PO SCH (09:41)
[2018-05-13] MEDS: POLYETHYLENE GLYCOL 3350 17 GM PACK PO SCH ×2 (09:41→16:28)
[2018-05-13] MEDS: Insulin Detemir 100 units/mL 10mL Vial SUBQ SCH (09:49)
[2018-05-13] MEDS: Haloperidol Lactate 5 mg/mL 1mL Vial IM PRN ×2 (13:33→21:13)
[2018-05-13] MEDS: D5-0.45NS 1,000 ML IV SCH (15:47)
--- NOTE | 2018-05-13 19:08 | Progress Notes ---
DATE: 05/13/2018 PULMONARY PROGRESS NOTE PROBLEM LIST: 1. Periodic encephalopathy status. 2. Underlying history of respiratory failure. 3. Suspect pulmonary embolism in the past. 4. History of severe obstructive sleep apnea syndrome. SUBJECTIVE: The patient is awake, still periodically confused, in no respiratory distress, etc. OBJECTIVE: GENERAL: Not in acute distress. VITAL SIGNS: The patient's recorded vitals: Temperature is 98.3, blood pressure is 136/74, respirations 18, saturation 98% on 2 liters per minute. ENT: Shows no new changes. CHEST: Shows diminished air entry without much of adventitious breath sounds. HEART: Regular. ABDOMEN: Soft, nontender. EXTREMITIES: Shows no peripheral edema. LABORATORY DATA: White count is 7.3, hemoglobin 10.7. ASSESSMENT: The patient clinically respiratory alvares stable, not much changed. PLANS AND SUGGESTIONS: Continue current regimen treatment per ANDIE and Dr. Cruz. JOB# [id number]
--- NOTE | 2018-05-13 21:25 | General Progress Note ---
Subjective - Review of Systems Service Date: 05/13/18 Subjective: Patient seen and examined awake confused at times requiring off and on restrains no new concern reported Objective - Results Result Diagrams: 05/11/18 06:06 05/11/18 06:06 Recent Labs: Laboratory Last Values WBC 7.3 Th/cmm (4.8-10.8) 05/11/18 06:06 RBC 3.56 Mil/cmm (4.30-5.70) L 05/11/18 06:06 Hgb 10.7 gm/dL (12-16) L 05/11/18 06:06 Hct 32.3 % (41.0-60) L 05/11/18 06:06 MCV 90.7 fl (80-99) 05/11/18 06:06 MCH 30.1 pg (26.0-30.0) H 05/11/18 06:06 MCHC Differential 33.2 pg (28.0-36.0) 05/11/18 06:06 RDW 15.0 % (11.5-20.0) 05/11/18 06:06 Plt Count 337 Th/cmm (150-400) 05/11/18 06:06 MPV 6.7 fl 05/11/18 06:06 Add Manual Diff YES 05/08/18 06:10 Neutrophils % 70.6 % (40.0-80.0) 05/11/18 06:06 Band Neutrophils % 3 % (0-10) 05/08/18 06:10 Lymphocytes % 16.0 % (20.0-50.0) L 05/11/18 06:06 Monocytes % 11.3 % (2.0-10.0) H 05/11/18 06:06 Eosinophils % 1.3 % (0.0-5.0) 05/11/18 06:06 Basophils % 0.8 % (0.0-2.0) 05/11/18 06:06 Neutrophils (Manual) 81 % (40-80) H 05/08/18 06:10 Lymphocytes 10 % (20-50) L 05/08/18 06:10 Monocytes 6 % (2-10) 05/08/18 06:10 Eosinophils 0 % (0-5) 05/08/18 06:10 Basophils 0 % (0-3) 05/08/18 06:10 Platelet Estimate ADEQUATE (NORMAL) 05/07/18 22:10 PT 11.7 SECONDS (9.5-11.5) H 05/09/18 04:30 INR 1.14 (0.5-1.4) 05/09/18 04:30 PTT (Actin FS) 31.9 SECONDS (26.0-38.0) 05/09/18 04:30 Specimen Source Arterial 05/10/18 09:35 Sample Site Right Radial 05/10/18 09:35 pH 7.48 (7.35-7.45) H 05/10/18 09:35 pCO2 40.0 mmHg (35.0-45.0) 05/10/18 09:35 pO2 57.0 mmHg (80.0-100.0) L 05/10/18 09:35 HCO3 29.3 mEq/L (20.0-26.0) H 05/10/18 09:35 Base Excess 5.8 mEq/L (-3.0-3.0) H 05/10/18 09:35 O2 Saturation 91.0 % (92.0-100.0) L 05/10/18 09:35 Abilio Test YES 05/10/18 09:35 Vent Rate NA 05/10/18 09:35 Inspired O2 21 05/10/18 09:35 Tidal Volume NA 05/10/18 09:35 PEEP NA 05/10/18 09:35 Pressure (ins/psv/peep) NA 05/10/18 09:35 Critical Value E.SOLIS 05/10/18 09:35 Sodium 141 mEq/L (136-145) 05/11/18 06:06 Potassium 3.0 mEq/L (3.5-5.1) L 05/11/18 06:06 Chloride 106 mEq/L (98-107) 05/11/18 06:06 Carbon Dioxide 26.4 mEq/L (21.0-31.0) 05/11/18 06:06 Anion Gap 11.6 (7.0-16.0) 05/11/18 06:06 BUN 9 mg/dL (7-25) 05/11/18 06:06 Creatinine 0.5 mg/dL (0.7-1.3) L 05/11/18 06:06 Est GFR ( Amer) > 60.0 ml/min (>90) 05/11/18 06:06 Est GFR (Non-Af Amer) > 60.0 ml/min 05/11/18 06:06 BUN/Creatinine Ratio 18.0 05/11/18 06:06 Glucose 138 mg/dL (70-105) H 05/11/18 06:06 POC Glucose 119 MG/DL (70 - 105) H 05/13/18 21:06 Whole Bld Lactic Acid 0.99 mmol/L (0.60-1.99) 05/07/18 22:10 Calcium 9.2 mg/dL (8.6-10.3) 05/11/18 06:06 Magnesium 1.8 mg/dL (1.9-2.7) L 05/09/18 04:30 Total Bilirubin 0.3 mg/dL (0.3-1.0) 05/11/18 06:06 AST 14 U/L (13-39) 05/11/18 06:06 ALT 20 U/L (7-52) 05/11/18 06:06 Alkaline Phosphatase 71 U/L (34-104) 05/11/18 06:06 Ammonia 36 umol/L (16-53) 05/10/18 09:00 Total Protein 6.5 gm/dL (6.0-8.3) 05/11/18 06:06 Albumin 3.2 gm/dL (4.2-5.5) L 05/11/18 06:06 Globulin 3.3 gm/dL 05/11/18 06:06 Albumin/Globulin Ratio 1.0 (1.0-1.8) 05/11/18 06:06 Free T3 1.2 pg/mL (2.0-4.4) L 05/09/18 04:30 TSH 9.60 uIU/ml (0.34-5.60) H 05/09/18 04:30 Urine Source CLEAN C 05/09/18 05:35 Urine Color YELLOW 05/09/18 05:35 Urine Clarity CLEAR (CLEAR) 05/09/18 05:35 Urine pH 7.0 (4.6 - 8.0) 05/09/18 05:35 Ur Specific [place] 1.025 (1.005-1.030) 05/09/18 05:35 Urine Protein NEGATIVE mg/dL (NEGATIVE) 05/09/18 05:35 Urine Glucose (UA) NEGATIVE mg/dL (NEGATIVE) 05/09/18 05:35 Urine Ketones TRACE mg/dL (NEGATIVE) 05/09/18 05:35 Urine Blood NEGATIVE (NEGATIVE) 05/09/18 05:35 Urine Nitrate NEGATIVE (NEGATIVE) 05/09/18 05:35 Urine Bilirubin NEGATIVE (NEGATIVE) 05/09/18 05:35 Urine Urobilinogen 4.0 E.U./dL (0.2 - 1.0) H 05/09/18 05:35 Ur Leukocyte Esterase NEGATIVE (NEGATIVE) 05/09/18 05:35 Urine RBC 0-2 /hpf (0-5) H 05/09/18 05:35 Urine WBC 0-2 /hpf (0-5) 05/09/18 05:35 Ur Epithelial Cells FEW /lpf (FEW) 05/09/18 05:35 Urine Bacteria NONE SEEN /hpf (NONE SEEN) 05/09/18 05:35 Vancomycin Trough 16.2 ug/mL (5-10) H 05/13/18 09:05 Valproic Acid < 10.0 ug/mL (50.0-100.0) L 05/12/18 08:45 Influenza A (Rapid) NEG FOR INF A 05/08/18 01:00 Influenza B (Rapid) NEG FOR INF B 05/08/18 01:00 - Physical Exam Vitals and I&O: Vital Signs Temp 97.3 F 05/13/18 20:00 Pulse 75 05/13/18 20:00 Resp 20 05/13/18 20:00 BP 132/86 05/13/18 20:00 Pulse Ox 100 05/13/18 20:00 Intake & Output 05/13/18 05/13/18 05/14/18 06:59 18:59 06:59 Intake Total 1600 450 400 Balance 1600 450 400 Weight (lbs) 105.687 kg 105.687 kg 90.718 kg Intake: Intake, IV Amount 700 250 400 D5-0.45NS 1,000 ml @ 75 400 mls/hr IV .[id number] [facility] Rx #:[id number] Meropenem 500 mg In 200 Sodium Chloride 0.9% 100 ml @ 100 mls/hr IV Q8H [facility] Rx#:[id number] Vancomycin HCl 1 gm In 500 250 Sodium Chloride 0.9% 250 ml @ 165 mls/hr IV Q8H [facility] Rx#:[id number] Oral 900 200 Other: # Voids 3 2 # Bowel Movements 1 0 Weight Source Bedscale Bedscale Bedscale Active Medications: Current Medications Acetaminophen (Tylenol) 650 mg PO Q4HR PRN PRN Reason: Pain Or Fever above 101 Stop: 07/06/18 21:39 Acetaminophen (Tylenol 650mg Supp) 650 mg RC Q6H PRN PRN Reason: fever > 100.4 Stop: 07/06/18 23:24 Last Admin: 05/08/18 00:15 Dose: 650 mg Albuterol/Ipratropium (Duoneb Neb) 3 ml HHN Q2HRT PRN PRN Reason: Wheezing Stop: 07/06/18 22:10 Albuterol/Ipratropium (Duoneb Neb) 3 ml HHN [id number] [facility] Stop: 07/07/18 18:59 Last Admin: 05/13/18 19:48 Dose: 3 ml Budesonide (Pulmicort) 0.5 mg HHN DAILYRT [facility] Stop: 07/08/18 06:59 Last Admin: 05/13/18 07:27 Dose: 0.5 mg Clonazepam (Klonopin) 1 mg PO BID [facility]; Protocol Stop: 07/09/18 12:29 Last Admin: 05/13/18 16:28 Dose: 1 mg Divalproex Sodium (Depakote Dr) 500 mg PO BID [facility]; Protocol Stop: 07/07/18 08:59 Last Admin: 05/13/18 16:28 Dose: 500 mg Haloperidol Lactate (Haldol) 5 mg IM Q6H PRN PRN Reason: Agitation Stop: 07/07/18 10:29 Last Admin: 05/13/18 21:13 Dose: 5 mg Heparin Sodium (Porcine) (Heparin) 5,000 units SUBQ Q8HR [facility] Stop: 07/07/18 20:59 Last Admin: 05/13/18 21:12 Dose: 5,000 units Hydrocortisone (Cortef) 10 mg PO BID [facility] Stop: 07/07/18 08:59 Last Admin: 05/13/18 16:29 Dose: 10 mg Dextrose/Sodium Chloride (D5-0.45ns) 1,000 mls @ 75 mls/hr IV .[id number] [facility] Stop: 07/07/18 14:14 Last Infusion: 05/13/18 21:07 Dose: 165 mls/hr Vancomycin HCl 1 gm/ Sodium (Chloride) 250 mls @ 165 mls/hr IV Q8H [facility] Stop: 07/11/18 09:59 Last Admin: 05/13/18 18:30 Dose: 165 mls/hr Insulin Aspart (Novolog Insulin Sliding Scale) 0 units SUBQ ACHS [facility]; Protocol Stop: 07/07/18 07:29 Last Admin: 05/13/18 21:06 Dose: Not Given Insulin Detemir (Levemir Insulin) 12 units SUBQ DAILY [facility]; Protocol Stop: 07/07/18 08:59 Last Admin: 05/13/18 09:49 Dose: Not Given Lactobacillus Rhamnosus (Culturelle 15b) 1 each PO DAILY [facility] Stop: 07/07/18 13:59 Last Admin: 05/13/18 09:41 Dose: 1 each Levothyroxine Sodium 0.075 mg/ (Levothyroxine Sodium 0.1 mg) 0.175 mg PO QDAC [facility] Stop: 07/07/18 07:29 Last Admin: 05/13/18 06:38 Dose: 0.175 mg Miscellaneous (Vte Chemical Prophylaxis Screen/ Admission) 1 ea PRN PRN PRN Reason: PROTOCOL Stop: 07/07/18 09:07 Miscellaneous (Probiotic Screen) 1 ea PRN PRN PRN Reason: PROTOCOL Stop: 07/07/18 12:10 Miscellaneous (Vancomycin Iv Per Pharmacy) 1 ea PRN PRN PRN Reason: PROTOCOL Stop: 07/07/18 18:52 Ondansetron HCl (Zofran) 4 mg IV Q6H PRN PRN Reason: Nausea / Vomiting Stop: 07/06/18 23:30 Polyethylene Glycol (Miralax) 17 gm PO BID [facility] Stop: 07/09/18 16:59 Last Admin: 05/13/18 16:28 Dose: 17 gm Quetiapine Fumarate (Seroquel) 25 mg PO BID [facility]; Protocol Stop: 07/11/18 16:59 Last Admin: 05/13/18 16:28 Dose: 25 mg General: No acute distress Cardiovascular: Regular rate Lungs: Other (rales) Abdomen: Soft, no Tender Assessment/Plan - Assessment Assessment: Pneumonia Dysphagia Agitation Hypothyroidism Back pain - Plan Plan: Continue meropenem Puree diet with thickend liquids started SNIF DC Plan in progress Klonopin as needed Continue synthroid Restrains Follow up labs and chest xray Oxygen and bronchodilators Plan of care discussed with nursing staff Nutritional Asmnt/Malnutr-PDOC - Dietary Evaluation Malnutrition Findings (Please click <Entered> for more info): Nutritional Asmnt/Malnutrition Start: 05/08/18 15: 33 Text: Status: Complete Freq: Protocol: Document 05/08/18 15:33 LCHENG (Rec: 05/08/18 15:50 LCHENG [id number]) Nutritional Asmnt/Malnutrition Patient General Information Nutritional Screening High Risk Consult Diagnosis brochitis, possible PNA Pertinent Medical Hx/Surgical Hx no H&P as of 05/08 3:30pm Subjective Information Pt seen lying in bed receiving breathing treatment at time of visit. Per RN, pt kept on NPO status. Consult received for left foot wound. Current Diet Order/ Nutrition Support NPO Pertinent Medications D5-0.45ns, novolog, levmir, culturelle, levothyroxine, vancomycin Pertinent Labs 05/08 Cr 0.6, glucose 150, POC 123-144 05/07 Glucose 197 Nutritional Hx/Data Height 1.7 m Height (Calculated Centimeters) 170.2 Current Weight (lbs) 83.915 kg Weight (Calculated Kilograms) 83.9 Weight (Calculated Grams) 79526.6 [place] Body Weight 148 Body Mass Index (BMI) 29.0 Weight Status Overweight GI Symptoms Last BM none noted Skin Integrity/Comment: per RN note 05/08: open wound on left foot, and skin irritation with open skin in inner buttocks Current %PO Negligible < 25% Estimated Nutritional Goals BEE in Kcals: Using Current wt Calories/Kcals/Kg 23-27 Kcals Calculated 1154-0077 Protein: Using Current wt Protein g/k Protein Calculated 84 Fluid: ml 2-226ml (1ml/kcal) Nutritional Problem 1. Problem Problem inadequate energy intake Etiology increased nutrition needs d/t wound Signs/Symptoms: PO on NPO status Intervention/Recommendation Comments 1. Monitor NPO status. Recommend swallow eval before initiating oral diet. Recommend CCHO diet with texture per ST, add Jalen BID for wound healing. 2. Monitor wt, labs and skin integrity 3. F/U as high risk in 2 days. Expected Outcomes/Goals Expected Outcomes/Goals 1. PO intake to meet at least 75% of nutritional needs. 2. Wt stability, skin to heal, labs to approach WNL.
--- NOTE | 2018-05-14 01:15 | Progress Notes ---
DATE: 05/13/2018 I am covering for Dr. Baeza. Case was discussed with staff of the patient and reviewed records. The patient is a 62-year-old male who was transferred from [facility] unit to telemetry because of tachypnea. He has been confused, oriented to name only and place, but not to situation. The patient needs to have restraints at some point, but in general, he is calmer and doing much better. He will be going to a correction facility, his family is aware of it. He sleeps well and eats well. He is on Klonopin 1 mg twice a day, Haldol as needed, and Seroquel 25 mg twice a day. The patient will be going to a correction facility. Thank you very much for allowing me to participate in the care of this most interesting gentleman. JOB# [id number]
[2018-05-14] MEDS: INSULIN ASPART SLIDING SCALE 100 UNITS/ML UNIT SUBQ SCH ×4 (07:03→20:52)
[2018-05-14] MEDS: Albuterol/Ipratropium Neb 3 ML AERS HHN SCH ×4 (07:17→19:13)
[2018-05-14] MEDS: Budesonide 0.5 Mg/2 mL Ud HHN SCH (07:24)
[2018-05-14] MEDS: Lactobacillus Rhamnosus GG 15 Billion CFU CAP.SPRINK PO SCH (08:09)
[2018-05-14] MEDS: POLYETHYLENE GLYCOL 3350 17 GM PACK PO SCH ×2 (08:09→17:50)
[2018-05-14] MEDS: Insulin Detemir 100 units/mL 10mL Vial SUBQ SCH (08:10)
--- NOTE | 2018-05-14 09:06 | Diagnostic Imaging Report ---
Portable chest x-ray HISTORY: Shortness of breath, pneumonia Compared to prior exam of 05/09/2018, the heart appears enlarged. No definite focal pulmonary processes. No hilar or mediastinal abnormalities. IMPRESSION: 1. No acute focal pulmonary processes 2. Cardiomegaly
[2018-05-14] MEDS: D5-0.45NS 1,000 ML IV SCH (10:08)
--- NOTE | 2018-05-14 17:09 | Progress Notes ---
DATE: 05/14/2018 PROBLEM LIST: 1. Respiratory failure, chronic. 2. Psychosis. 3. Severe obstructive sleep apnea syndrome. The patient is confused, disoriented. No specific symptoms. PHYSICAL EXAMINATION: VITAL SIGNS: T-max 98.0, blood pressure 146/85. NECK: Veins not visualized. CHEST: Shows diminished air entry with occasional rhonchi. HEART: Regular. ABDOMEN: Soft and nontender. ASSESSMENT: The patient clinically appears to be stable except for psychological issue. PLANS AND SUGGESTIONS: Continue current treatment. We will check some basic laboratory studies tomorrow and see what it is and go from there. JOB# [id number]
--- NOTE | 2018-05-14 19:18 | General Progress Note ---
Subjective - Review of Systems Service Date: 05/14/18 Subjective: Patient seen and examined awake confused at times requiring off and on restrains no new concern reported Objective - Results Result Diagrams: 05/11/18 06:06 05/11/18 06:06 Recent Labs: Laboratory Last Values WBC 7.3 Th/cmm (4.8-10.8) 05/11/18 06:06 RBC 3.56 Mil/cmm (4.30-5.70) L 05/11/18 06:06 Hgb 10.7 gm/dL (12-16) L 05/11/18 06:06 Hct 32.3 % (41.0-60) L 05/11/18 06:06 MCV 90.7 fl (80-99) 05/11/18 06:06 MCH 30.1 pg (26.0-30.0) H 05/11/18 06:06 MCHC Differential 33.2 pg (28.0-36.0) 05/11/18 06:06 RDW 15.0 % (11.5-20.0) 05/11/18 06:06 Plt Count 337 Th/cmm (150-400) 05/11/18 06:06 MPV 6.7 fl 05/11/18 06:06 Add Manual Diff YES 05/08/18 06:10 Neutrophils % 70.6 % (40.0-80.0) 05/11/18 06:06 Band Neutrophils % 3 % (0-10) 05/08/18 06:10 Lymphocytes % 16.0 % (20.0-50.0) L 05/11/18 06:06 Monocytes % 11.3 % (2.0-10.0) H 05/11/18 06:06 Eosinophils % 1.3 % (0.0-5.0) 05/11/18 06:06 Basophils % 0.8 % (0.0-2.0) 05/11/18 06:06 Neutrophils (Manual) 81 % (40-80) H 05/08/18 06:10 Lymphocytes 10 % (20-50) L 05/08/18 06:10 Monocytes 6 % (2-10) 05/08/18 06:10 Eosinophils 0 % (0-5) 05/08/18 06:10 Basophils 0 % (0-3) 05/08/18 06:10 Platelet Estimate ADEQUATE (NORMAL) 05/07/18 22:10 PT 11.7 SECONDS (9.5-11.5) H 05/09/18 04:30 INR 1.14 (0.5-1.4) 05/09/18 04:30 PTT (Actin FS) 31.9 SECONDS (26.0-38.0) 05/09/18 04:30 Specimen Source Arterial 05/10/18 09:35 Sample Site Right Radial 05/10/18 09:35 pH 7.48 (7.35-7.45) H 05/10/18 09:35 pCO2 40.0 mmHg (35.0-45.0) 05/10/18 09:35 pO2 57.0 mmHg (80.0-100.0) L 05/10/18 09:35 HCO3 29.3 mEq/L (20.0-26.0) H 05/10/18 09:35 Base Excess 5.8 mEq/L (-3.0-3.0) H 05/10/18 09:35 O2 Saturation 91.0 % (92.0-100.0) L 05/10/18 09:35 Abilio Test YES 05/10/18 09:35 Vent Rate NA 05/10/18 09:35 Inspired O2 21 05/10/18 09:35 Tidal Volume NA 05/10/18 09:35 PEEP NA 05/10/18 09:35 Pressure (ins/psv/peep) NA 05/10/18 09:35 Critical Value E.SOLIS 05/10/18 09:35 Sodium 141 mEq/L (136-145) 05/11/18 06:06 Potassium 3.0 mEq/L (3.5-5.1) L 05/11/18 06:06 Chloride 106 mEq/L (98-107) 05/11/18 06:06 Carbon Dioxide 26.4 mEq/L (21.0-31.0) 05/11/18 06:06 Anion Gap 11.6 (7.0-16.0) 05/11/18 06:06 BUN 9 mg/dL (7-25) 05/11/18 06:06 Creatinine 0.5 mg/dL (0.7-1.3) L 05/11/18 06:06 Est GFR ( Amer) > 60.0 ml/min (>90) 05/11/18 06:06 Est GFR (Non-Af Amer) > 60.0 ml/min 05/11/18 06:06 BUN/Creatinine Ratio 18.0 05/11/18 06:06 Glucose 138 mg/dL (70-105) H 05/11/18 06:06 POC Glucose 139 MG/DL (70 - 105) H 05/14/18 15:41 Whole Bld Lactic Acid 0.99 mmol/L (0.60-1.99) 05/07/18 22:10 Calcium 9.2 mg/dL (8.6-10.3) 05/11/18 06:06 Magnesium 1.8 mg/dL (1.9-2.7) L 05/09/18 04:30 Total Bilirubin 0.3 mg/dL (0.3-1.0) 05/11/18 06:06 AST 14 U/L (13-39) 05/11/18 06:06 ALT 20 U/L (7-52) 05/11/18 06:06 Alkaline Phosphatase 71 U/L (34-104) 05/11/18 06:06 Ammonia 36 umol/L (16-53) 05/10/18 09:00 Total Protein 6.5 gm/dL (6.0-8.3) 05/11/18 06:06 Albumin 3.2 gm/dL (4.2-5.5) L 05/11/18 06:06 Globulin 3.3 gm/dL 05/11/18 06:06 Albumin/Globulin Ratio 1.0 (1.0-1.8) 05/11/18 06:06 Free T3 1.2 pg/mL (2.0-4.4) L 05/09/18 04:30 TSH 9.60 uIU/ml (0.34-5.60) H 05/09/18 04:30 Urine Source CLEAN C 05/09/18 05:35 Urine Color YELLOW 05/09/18 05:35 Urine Clarity CLEAR (CLEAR) 05/09/18 05:35 Urine pH 7.0 (4.6 - 8.0) 05/09/18 05:35 Ur Specific [place] 1.025 (1.005-1.030) 05/09/18 05:35 Urine Protein NEGATIVE mg/dL (NEGATIVE) 05/09/18 05:35 Urine Glucose (UA) NEGATIVE mg/dL (NEGATIVE) 05/09/18 05:35 Urine Ketones TRACE mg/dL (NEGATIVE) 05/09/18 05:35 Urine Blood NEGATIVE (NEGATIVE) 05/09/18 05:35 Urine Nitrate NEGATIVE (NEGATIVE) 05/09/18 05:35 Urine Bilirubin NEGATIVE (NEGATIVE) 05/09/18 05:35 Urine Urobilinogen 4.0 E.U./dL (0.2 - 1.0) H 05/09/18 05:35 Ur Leukocyte Esterase NEGATIVE (NEGATIVE) 05/09/18 05:35 Urine RBC 0-2 /hpf (0-5) H 05/09/18 05:35 Urine WBC 0-2 /hpf (0-5) 05/09/18 05:35 Ur Epithelial Cells FEW /lpf (FEW) 05/09/18 05:35 Urine Bacteria NONE SEEN /hpf (NONE SEEN) 05/09/18 05:35 Vancomycin Trough 16.2 ug/mL (5-10) H 05/13/18 09:05 Valproic Acid < 10.0 ug/mL (50.0-100.0) L 05/12/18 08:45 Influenza A (Rapid) NEG FOR INF A 05/08/18 01:00 Influenza B (Rapid) NEG FOR INF B 05/08/18 01:00 - Physical Exam Vitals and I&O: Vital Signs Temp 98.0 F 05/14/18 15:42 Pulse 60 05/14/18 15:42 Resp 19 05/14/18 15:42 BP 146/85 05/14/18 15:42 Pulse Ox 91 05/14/18 15:42 Intake & Output 05/14/18 05/14/18 05/15/18 06:59 18:59 06:59 Intake Total 1700 1330 Balance 1700 1330 Weight (lbs) 90.718 kg 90.718 kg Intake: Intake, IV Amount 1500 250 D5-0.45NS 1,000 ml @ 75 1000 mls/hr IV .[id number] [facility] Rx #:[id number] Vancomycin HCl 1 gm In 500 250 Sodium Chloride 0.9% 250 ml @ 165 mls/hr IV Q8H [facility] Rx#:[id number] Oral 200 1080 Other: # Voids 2 3 # Bowel Movements 0 0 Weight Source Bedscale Estimated Active Medications: Current Medications Acetaminophen (Tylenol) 650 mg PO Q4HR PRN PRN Reason: Pain Or Fever above 101 Stop: 07/06/18 21:39 Acetaminophen (Tylenol 650mg Supp) 650 mg RC Q6H PRN PRN Reason: fever > 100.4 Stop: 07/06/18 23:24 Last Admin: 05/08/18 00:15 Dose: 650 mg Albuterol/Ipratropium (Duoneb Neb) 3 ml HHN Q2HRT PRN PRN Reason: Wheezing Stop: 07/06/18 22:10 Albuterol/Ipratropium (Duoneb Neb) 3 ml HHN [id number] [facility] Stop: 07/07/18 18:59 Last Admin: 05/14/18 19:13 Dose: 3 ml Budesonide (Pulmicort) 0.5 mg HHN DAILYRT [facility] Stop: 07/08/18 06:59 Last Admin: 05/14/18 07:24 Dose: 0.5 mg Clonazepam (Klonopin) 1 mg PO BID [facility]; Protocol Stop: 07/09/18 12:29 Last Admin: 05/14/18 17:50 Dose: 1 mg Divalproex Sodium (Depakote Dr) 500 mg PO BID [facility]; Protocol Stop: 07/07/18 08:59 Last Admin: 05/14/18 17:50 Dose: 500 mg Haloperidol Lactate (Haldol) 5 mg IM Q6H PRN PRN Reason: Agitation Stop: 07/07/18 10:29 Last Admin: 05/13/18 21:13 Dose: 5 mg Heparin Sodium (Porcine) (Heparin) 5,000 units SUBQ Q8HR [facility] Stop: 07/07/18 20:59 Last Admin: 05/14/18 13:57 Dose: 5,000 units Hydrocortisone (Cortef) 10 mg PO BID [facility] Stop: 07/07/18 08:59 Last Admin: 05/14/18 17:50 Dose: 10 mg Dextrose/Sodium Chloride (D5-0.45ns) 1,000 mls @ 75 mls/hr IV .[id number] [facility] Stop: 07/07/18 14:14 Last Admin: 05/14/18 10:08 Dose: 165 mls/hr Vancomycin HCl 1 gm/ Sodium (Chloride) 250 mls @ 165 mls/hr IV Q8H [facility] Stop: 07/11/18 09:59 Last Admin: 05/14/18 17:49 Dose: 165 mls/hr Insulin Aspart (Novolog Insulin Sliding Scale) 0 units SUBQ ACHS [facility]; Protocol Stop: 07/07/18 07:29 Last Admin: 05/14/18 16:16 Dose: Not Given Insulin Detemir (Levemir Insulin) 12 units SUBQ DAILY [facility]; Protocol Stop: 07/07/18 08:59 Last Admin: 05/14/18 08:10 Dose: Not Given Lactobacillus Rhamnosus (Culturelle 15b) 1 each PO DAILY [facility] Stop: 07/07/18 13:59 Last Admin: 05/14/18 08:09 Dose: 1 each Levothyroxine Sodium 0.075 mg/ (Levothyroxine Sodium 0.1 mg) 0.175 mg PO QDAC [facility] Stop: 07/07/18 07:29 Last Admin: 05/14/18 06:42 Dose: 0.175 mg Miscellaneous (Vte Chemical Prophylaxis Screen/ Admission) 1 ea PRN PRN PRN Reason: PROTOCOL Stop: 07/07/18 09:07 Miscellaneous (Probiotic Screen) 1 ea PRN PRN PRN Reason: PROTOCOL Stop: 07/07/18 12:10 Miscellaneous (Vancomycin Iv Per Pharmacy) [facility] PRN PRN PRN Reason: PROTOCOL Stop: 07/07/18 18:52 Ondansetron HCl (Zofran) 4 mg IV Q6H PRN PRN Reason: Nausea / Vomiting Stop: 07/06/18 23:30 Polyethylene Glycol (Miralax) 17 gm PO BID [facility] Stop: 07/09/18 16:59 Last Admin: 05/14/18 17:50 Dose: 17 gm Quetiapine Fumarate (Seroquel) 25 mg PO BID [facility]; Protocol Stop: 07/11/18 16:59 Last Admin: 05/14/18 17:50 Dose: 25 mg General: No acute distress Cardiovascular: Regular rate Lungs: Other (rales) Abdomen: Soft, no Tender Neurological: Other (confused) Assessment/Plan - Assessment Assessment: Pneumonia Dysphagia Agitation Hypothyroidism Back pain - Plan Plan: Continue meropenem Puree diet with thickend liquids started SNIF DC Plan in progress Klonopin as needed Continue synthroid Restrains Follow up labs and chest xray Oxygen and bronchodilators SNIF DC plan in progress Nutritional Asmnt/Malnutr-PDOC - Dietary Evaluation Malnutrition Findings (Please click <Entered> for more info): Nutritional Asmnt/Malnutrition Start: 05/08/18 15: 33 Text: Status: Complete Freq: Protocol: Document 05/08/18 15:33 THOR (Rec: 05/08/18 15:50 [email or web address] [email or web address]) Nutritional Asmnt/Malnutrition Patient General Information Nutritional Screening High Risk Consult Diagnosis brochitis, possible PNA Pertinent Medical Hx/Surgical Hx no H&P as of 05/08 3:30pm Subjective Information Pt seen lying in bed receiving breathing treatment at time of visit. Per RN, pt kept on NPO status. Consult received for left foot wound. Current Diet Order/ Nutrition Support NPO Pertinent Medications D5-0.45ns, novolog, levmir, culturelle, levothyroxine, vancomycin Pertinent Labs 05/08 Cr 0.6, glucose 150, POC 123-144 05/07 Glucose 197 Nutritional Hx/Data Height 1.7 m Height (Calculated Centimeters) 170.2 Current Weight (lbs) 83.915 kg Weight (Calculated Kilograms) 83.9 Weight (Calculated Grams) 05617.6 [place] Body Weight 148 Body Mass Index (BMI) 29.0 Weight Status Overweight GI Symptoms Last BM none noted Skin Integrity/Comment: per RN note 05/08: open wound on left foot, and skin irritation with open skin in inner buttocks Current %PO Negligible < 25% Estimated Nutritional Goals BEE in Kcals: Using Current wt Calories/Kcals/Kg 23-27 Kcals Calculated 7202-1032 Protein: Using Current wt Protein g/k Protein Calculated 84 Fluid: ml 1932-2268ml (1ml/kcal) Nutritional Problem 1. Problem Problem inadequate energy intake Etiology increased nutrition needs d/t wound Signs/Symptoms: PO on NPO status Intervention/Recommendation Comments 1. Monitor NPO status. Recommend swallow eval before initiating oral diet. Recommend CCHO diet with texture per ST, add Jalen BID for wound healing. 2. Monitor wt, labs and skin integrity 3. F/U as high risk in 2 days. Expected Outcomes/Goals Expected Outcomes/Goals 1. PO intake to meet at least 75% of nutritional needs. 2. Wt stability, skin to heal, labs to approach WNL.
--- NOTE | 2018-05-14 21:43 | Progress Notes ---
DATE: 05/14/2018 SUMMARY: Case was discussed with staff of the patient and reviewed records. He did complain of pain in his toes and the staff is aware of it. He is being fed by the staff. He continues to be unpredictable and impulsive, but in general, he has been calmer. He will be going to a senior care facility. He is sleeping better and eating better. No side effects of the medication, no sedation, and no nausea. The patient needs followup with other psychiatrist on discharge. Thank you very much for allowing me to participate in the care of this most interesting gentleman. JOB# [id number]
--- NOTE | 2018-05-14 22:39 | Infectious Disease Prog Note ---
Infectious Disease Subjective - Review of Systems Service Date: 05/14/18 Subjective: No new change, no fever, Infectious Disease Objective - Results Result Diagrams: 05/11/18 06:06 05/11/18 06:06 Recent Labs: Laboratory Last Values WBC 7.3 Th/cmm (4.8-10.8) 05/11/18 06:06 RBC 3.56 Mil/cmm (4.30-5.70) L 05/11/18 06:06 Hgb 10.7 gm/dL (12-16) L 05/11/18 06:06 Hct 32.3 % (41.0-60) L 05/11/18 06:06 MCV 90.7 fl (80-99) 05/11/18 06:06 MCH 30.1 pg (26.0-30.0) H 05/11/18 06:06 MCHC Differential 33.2 pg (28.0-36.0) 05/11/18 06:06 RDW 15.0 % (11.5-20.0) 05/11/18 06:06 Plt Count 337 Th/cmm (150-400) 05/11/18 06:06 MPV 6.7 fl 05/11/18 06:06 Add Manual Diff YES 05/08/18 06:10 Neutrophils % 70.6 % (40.0-80.0) 05/11/18 06:06 Band Neutrophils % 3 % (0-10) 05/08/18 06:10 Lymphocytes % 16.0 % (20.0-50.0) L 05/11/18 06:06 Monocytes % 11.3 % (2.0-10.0) H 05/11/18 06:06 Eosinophils % 1.3 % (0.0-5.0) 05/11/18 06:06 Basophils % 0.8 % (0.0-2.0) 05/11/18 06:06 Neutrophils (Manual) 81 % (40-80) H 05/08/18 06:10 Lymphocytes 10 % (20-50) L 05/08/18 06:10 Monocytes 6 % (2-10) 05/08/18 06:10 Eosinophils 0 % (0-5) 05/08/18 06:10 Basophils 0 % (0-3) 05/08/18 06:10 Platelet Estimate ADEQUATE (NORMAL) 05/07/18 22:10 PT 11.7 SECONDS (9.5-11.5) H 05/09/18 04:30 INR 1.14 (0.5-1.4) 05/09/18 04:30 PTT (Actin FS) 31.9 SECONDS (26.0-38.0) 05/09/18 04:30 Specimen Source Arterial 05/10/18 09:35 Sample Site Right Radial 05/10/18 09:35 pH 7.48 (7.35-7.45) H 05/10/18 09:35 pCO2 40.0 mmHg (35.0-45.0) 05/10/18 09:35 pO2 57.0 mmHg (80.0-100.0) L 05/10/18 09:35 HCO3 29.3 mEq/L (20.0-26.0) H 05/10/18 09:35 Base Excess 5.8 mEq/L (-3.0-3.0) H 05/10/18 09:35 O2 Saturation 91.0 % (92.0-100.0) L 05/10/18 09:35 Abilio Test YES 05/10/18 09:35 Vent Rate NA 05/10/18 09:35 Inspired O2 21 05/10/18 09:35 Tidal Volume NA 05/10/18 09:35 PEEP NA 05/10/18 09:35 Pressure (ins/psv/peep) NA 05/10/18 09:35 Critical Value E.SOLIS 05/10/18 09:35 Sodium 141 mEq/L (136-145) 05/11/18 06:06 Potassium 3.0 mEq/L (3.5-5.1) L 05/11/18 06:06 Chloride 106 mEq/L (98-107) 05/11/18 06:06 Carbon Dioxide 26.4 mEq/L (21.0-31.0) 05/11/18 06:06 Anion Gap 11.6 (7.0-16.0) 05/11/18 06:06 BUN 9 mg/dL (7-25) 05/11/18 06:06 Creatinine 0.5 mg/dL (0.7-1.3) L 05/11/18 06:06 Est GFR ( Amer) > 60.0 ml/min (>90) 05/11/18 06:06 Est GFR (Non-Af Amer) > 60.0 ml/min 05/11/18 06:06 BUN/Creatinine Ratio 18.0 05/11/18 06:06 Glucose 138 mg/dL (70-105) H 05/11/18 06:06 POC Glucose 169 MG/DL (70 - 105) H 05/14/18 20:48 Whole Bld Lactic Acid 0.99 mmol/L (0.60-1.99) 05/07/18 22:10 Calcium 9.2 mg/dL (8.6-10.3) 05/11/18 06:06 Magnesium 1.8 mg/dL (1.9-2.7) L 05/09/18 04:30 Total Bilirubin 0.3 mg/dL (0.3-1.0) 05/11/18 06:06 AST 14 U/L (13-39) 05/11/18 06:06 ALT 20 U/L (7-52) 05/11/18 06:06 Alkaline Phosphatase 71 U/L (34-104) 05/11/18 06:06 Ammonia 36 umol/L (16-53) 05/10/18 09:00 Total Protein 6.5 gm/dL (6.0-8.3) 05/11/18 06:06 Albumin 3.2 gm/dL (4.2-5.5) L 05/11/18 06:06 Globulin 3.3 gm/dL 05/11/18 06:06 Albumin/Globulin Ratio 1.0 (1.0-1.8) 05/11/18 06:06 Free T3 1.2 pg/mL (2.0-4.4) L 05/09/18 04:30 TSH 9.60 uIU/ml (0.34-5.60) H 05/09/18 04:30 Urine Source CLEAN C 05/09/18 05:35 Urine Color YELLOW 05/09/18 05:35 Urine Clarity CLEAR (CLEAR) 05/09/18 05:35 Urine pH 7.0 (4.6 - 8.0) 05/09/18 05:35 Ur Specific [place] 1.025 (1.005-1.030) 05/09/18 05:35 Urine Protein NEGATIVE mg/dL (NEGATIVE) 05/09/18 05:35 Urine Glucose (UA) NEGATIVE mg/dL (NEGATIVE) 05/09/18 05:35 Urine Ketones TRACE mg/dL (NEGATIVE) 05/09/18 05:35 Urine Blood NEGATIVE (NEGATIVE) 05/09/18 05:35 Urine Nitrate NEGATIVE (NEGATIVE) 05/09/18 05:35 Urine Bilirubin NEGATIVE (NEGATIVE) 05/09/18 05:35 Urine Urobilinogen 4.0 E.U./dL (0.2 - 1.0) H 05/09/18 05:35 Ur Leukocyte Esterase NEGATIVE (NEGATIVE) 05/09/18 05:35 Urine RBC 0-2 /hpf (0-5) H 05/09/18 05:35 Urine WBC 0-2 /hpf (0-5) 05/09/18 05:35 Ur Epithelial Cells FEW /lpf (FEW) 05/09/18 05:35 Urine Bacteria NONE SEEN /hpf (NONE SEEN) 05/09/18 05:35 Vancomycin Trough 16.2 ug/mL (5-10) H 05/13/18 09:05 Valproic Acid < 10.0 ug/mL (50.0-100.0) L 05/12/18 08:45 Influenza A (Rapid) NEG FOR INF A 05/08/18 01:00 Influenza B (Rapid) NEG FOR INF B 05/08/18 01:00 - Physical Exam Vitals and I&O: Vital Signs Temp 98.1 F 05/14/18 20:00 Pulse 90 05/14/18 20:00 Resp 22 05/14/18 21:25 BP 130/82 05/14/18 20:00 Pulse Ox 94 05/14/18 21:25 Intake & Output 05/14/18 05/14/18 05/15/18 06:59 18:59 06:59 Intake Total 1700 1330 Balance 1700 1330 Weight (lbs) 90.718 kg 90.718 kg Intake: Intake, IV Amount 1500 250 D5-0.45NS 1,000 ml @ 75 1000 mls/hr IV .[id number] [facility] Rx #:[id number] Vancomycin HCl 1 gm In 500 250 Sodium Chloride 0.9% 250 ml @ 165 mls/hr IV Q8H [facility] Rx#:[id number] Oral 200 1080 Other: # Voids 2 3 # Bowel Movements 0 0 Weight Source Bedscale Estimated Active Medications: Current Medications Acetaminophen (Tylenol) 650 mg PO Q4HR PRN PRN Reason: Pain Or Fever above 101 Stop: 07/06/18 21:39 Acetaminophen (Tylenol 650mg Supp) 650 mg RC Q6H PRN PRN Reason: fever > 100.4 Stop: 07/06/18 23:24 Last Admin: 05/08/18 00:15 Dose: 650 mg Albuterol/Ipratropium (Duoneb Neb) 3 ml HHN Q2HRT PRN PRN Reason: Wheezing Stop: 07/06/18 22:10 Albuterol/Ipratropium (Duoneb Neb) 3 ml HHN [id number] [facility] Stop: 07/07/18 18:59 Last Admin: 05/14/18 19:13 Dose: 3 ml Budesonide (Pulmicort) 0.5 mg HHN DAILYRT [facility] Stop: 07/08/18 06:59 Last Admin: 05/14/18 07:24 Dose: 0.5 mg Clonazepam (Klonopin) 1 mg PO BID [facility]; Protocol Stop: 07/09/18 12:29 Last Admin: 05/14/18 17:50 Dose: 1 mg Divalproex Sodium (Depakote Dr) 500 mg PO BID [facility]; Protocol Stop: 07/07/18 08:59 Last Admin: 05/14/18 17:50 Dose: 500 mg Haloperidol Lactate (Haldol) 5 mg IM Q6H PRN PRN Reason: Agitation Stop: 07/07/18 10:29 Last Admin: 05/13/18 21:13 Dose: 5 mg Heparin Sodium (Porcine) (Heparin) 5,000 units SUBQ Q8HR [facility] Stop: 07/07/18 20:59 Last Admin: 05/14/18 20:54 Dose: 5,000 units Hydrocortisone (Cortef) 10 mg PO BID [facility] Stop: 07/07/18 08:59 Last Admin: 05/14/18 17:50 Dose: 10 mg Dextrose/Sodium Chloride (D5-0.45ns) 1,000 mls @ 75 mls/hr IV .[id number] [facility] Stop: 07/07/18 14:14 Last Admin: 05/14/18 10:08 Dose: 165 mls/hr Vancomycin HCl 1 gm/ Sodium (Chloride) 250 mls @ 165 mls/hr IV Q8H [facility] Stop: 07/11/18 09:59 Last Admin: 05/14/18 17:49 Dose: 165 mls/hr Insulin Aspart (Novolog Insulin Sliding Scale) 0 units SUBQ ACHS [facility]; Protocol Stop: 07/07/18 07:29 Last Admin: 05/14/18 20:52 Dose: 3 units Insulin Detemir (Levemir Insulin) 12 units SUBQ DAILY [facility]; Protocol Stop: 07/07/18 08:59 Last Admin: 05/14/18 08:10 Dose: Not Given Lactobacillus Rhamnosus (Culturelle 15b) 1 each PO DAILY [facility] Stop: 07/07/18 13:59 Last Admin: 05/14/18 08:09 Dose: 1 each Levothyroxine Sodium 0.075 mg/ (Levothyroxine Sodium 0.1 mg) 0.175 mg PO QDAC [facility] Stop: 07/07/18 07:29 Last Admin: 05/14/18 06:42 Dose: 0.175 mg Miscellaneous (Vte Chemical Prophylaxis Screen/ Admission) 1 ea PRN PRN PRN Reason: PROTOCOL Stop: 07/07/18 09:07 Miscellaneous (Probiotic Screen) 1 ea PRN PRN PRN Reason: PROTOCOL Stop: 07/07/18 12:10 Miscellaneous (Vancomycin Iv Per Pharmacy) 1 [facility] PRN PRN PRN Reason: PROTOCOL Stop: 07/07/18 18:52 Ondansetron HCl (Zofran) 4 mg IV Q6H PRN PRN Reason: Nausea / Vomiting Stop: 07/06/18 23:30 Polyethylene Glycol (Miralax) 17 gm PO BID [facility] Stop: 07/09/18 16:59 Last Admin: 05/14/18 17:50 Dose: 17 gm Quetiapine Fumarate (Seroquel) 25 mg PO BID [facility]; Protocol Stop: 07/11/18 16:59 Last Admin: 05/14/18 17:50 Dose: 25 mg General: no acute distress, well developed, well nourished, other (on bipap) HEENT: atraumatic, normocephalic, PERRLA, EOMI Neck: supple, no thyromegaly Cardiovascular: S1S2, regular Lungs: clear to auscultation bilaterally, clear to percussion Abdomen: soft, no tender, no distended, no mass Extremities: no cyanosis, no clubbing, no edema Neurological: awake, alert Skin: intact Infectious Disease Assmt/Plan - Assessment Assessment: 1. pneumonia. 2. COPD. 3. Psychosis. - Plan Plan: DC vanco IV and start levaqquin. Nutritional Asmnt/Malnutr-PDOC - Dietary Evaluation Malnutrition Findings (Please click <Entered> for more info): Nutritional Asmnt/Malnutrition Start: 05/08/18 15: 33 Text: Status: Complete Freq: Protocol: Document 05/08/18 15:33 LCHENG (Rec: 05/08/18 15:50 [email or web address] [id number]) Nutritional Asmnt/Malnutrition Patient General Information Nutritional Screening High Risk Consult Diagnosis brochitis, possible PNA Pertinent Medical Hx/Surgical Hx no H&P as of 05/08 3:30pm Subjective Information Pt seen lying in bed receiving breathing treatment at time of visit. Per RN, pt kept on NPO status. Consult received for left foot wound. Current Diet Order/ Nutrition Support NPO Pertinent Medications D5-0.45ns, novolog, levmir, culturelle, levothyroxine, vancomycin Pertinent Labs 05/08 Cr 0.6, glucose 150, POC 123-144 05/07 Glucose 197 Nutritional Hx/Data Height 1.7 m Height (Calculated Centimeters) 170.2 Current Weight (lbs) 83.915 kg Weight (Calculated Kilograms) 83.9 Weight (Calculated Grams) 99444.6 [place] Body Weight 148 Body Mass Index (BMI) 29.0 Weight Status Overweight GI Symptoms Last BM none noted Skin Integrity/Comment: per RN note 05/08: open wound on left foot, and skin irritation with open skin in inner buttocks Current %PO Negligible < 25% Estimated Nutritional Goals BEE in Kcals: Using Current wt Calories/Kcals/Kg 23-27 Kcals Calculated 1472-4761 Protein: Using Current wt Protein g/k Protein Calculated 84 Fluid: ml 1931-2268ml (1ml/kcal) Nutritional Problem 1. Problem Problem inadequate energy intake Etiology increased nutrition needs d/t wound Signs/Symptoms: PO on NPO status Intervention/Recommendation Comments 1. Monitor NPO status. Recommend swallow eval before initiating oral diet. Recommend CCHO diet with texture per ST, add Jalen BID for wound healing. 2. Monitor wt, labs and skin integrity 3. F/U as high risk in 2 days. Expected Outcomes/Goals Expected Outcomes/Goals 1. PO intake to meet at least 75% of nutritional needs. 2. Wt stability, skin to heal, labs to approach WNL.
[2018-05-15] MEDS: Levofloxacin 500mg/100mL 500 MG/100 ML BAG IV SCH ×2 (01:46→23:26)
[2018-05-15 05:42] LABS: % BASOPHILS 0.3 % (0.0-2.0); % EOSINOPHILS 1.6 % (0.0-5.0); % LYMPHOCYTES 18.6 % (20.0-50.0); % MONOCYTES 9.4 % (2.0-10.0); % NEUTROPHILS 70.1 % (40.0-80.0); EOSINOPHILE ABSOLUTE 0.2 Th/cmm (0.1-0.4); HEMATOCRIT 32.4 % (41.0-60); HEMOGLOBIN 10.8 gm/dL (12-16); MEAN CELL VOLUME 91.2 fl (80-99); MEAN CORPUSCULAR HEMOGLOBIN 30.4 pg (26.0-30.0); MEAN CORPUSCULAR HGB CONC 33.4 pg (28.0-36.0); MEAN PLATELET VOLUME 7.3 fl; NEUTROPHILE ABSOLUTE 7.5 Th/cmm (1.8-8.0); PLATELET COUNT 389 Th/cmm (150-400); RED BLOOD COUNT 3.55 Mil/cmm (4.30-5.70); RED CELL DISTRIBUTION WIDTH 14.8 % (11.5-20.0); WHITE BLOOD COUNT 10.7 Th/cmm (4.8-10.8)
[2018-05-15 05:55] LABS: ANION GAP 10.6 (7.0-16.0); BUN - UREA NITROGEN 8 mg/dL (7-25); CALCIUM SERUM 9.4 mg/dL (8.6-10.3); CARBON DIOXIDE 32.8 mEq/L (21.0-31.0); CHLORIDE 102 mEq/L (98-107); CREATININE - SERUM 0.6 mg/dL (0.7-1.3); GFR AFRICAN-AMERICAN > 60.0 ml/min (>90); GFR NON AFRICAN-AMERICAN > 60.0 ml/min; GLUCOSE 138 mg/dL (70-105); POTASSIUM SERUM 3.4 mEq/L (3.5-5.1); SODIUM SERUM 142 mEq/L (136-145)
[2018-05-15] MEDS: INSULIN ASPART SLIDING SCALE 100 UNITS/ML UNIT SUBQ SCH ×4 (06:54→23:25)
[2018-05-15] MEDS: Budesonide 0.5 Mg/2 mL Ud HHN SCH (07:13)
[2018-05-15] MEDS: Albuterol/Ipratropium Neb 3 ML AERS HHN SCH ×5 (07:15→18:52)
[2018-05-15] MEDS: Lactobacillus Rhamnosus GG 15 Billion CFU CAP.SPRINK PO SCH (08:07)
[2018-05-15] MEDS: POLYETHYLENE GLYCOL 3350 17 GM PACK PO SCH ×2 (08:08→17:25)
[2018-05-15] MEDS: Insulin Detemir 100 units/mL 10mL Vial SUBQ SCH (08:21)
--- NOTE | 2018-05-15 14:59 | Progress Notes ---
DATE: 05/07/2018 PULMONARY PROGRESS PROBLEM LIST: 1. Encephalopathy state. 2. Severe obstructive sleep apnea syndrome. SYMPTOMS: The patient is sleeping, sedated. No respiratory distress at this particular time. PHYSICAL EXAMINATION: VITAL SIGNS: T-max 98.0, blood pressure 133/94, saturation is mid 90s on 2 liters per minute. NECK: Veins not visualized. CHEST: Shows diminished air entry with occasional rhonchi. HEART: Regular. ABDOMEN: Soft, nontender. LABORATORY DATA: White count is 10.7, hemoglobin is 10.8. Electrolytes shows potassium is 3.4. IMPRESSION: The patient is clinically stable respiratory alvares. Psychological issue produce a lot of his management medically speaking medical issue. PLAN: Continue current treatment. We will discussed with Dr. Salomon. JOB# [id number]
--- NOTE | 2018-05-15 15:43 | Progress Notes ---
DATE: 05/15/2018 IDENTIFICATION: A 62-year-old male. SUBJECTIVE: The patient is seen and examined. The patient is admitted at [facility] and now he is in room 14B. He was admitted from Ger[facility] Unit to the medical floor after the patient was noted to have respiratory distress. The patient was diagnosed to have pneumonitis and required oxygen and BiPAP therapy. The patient also has significant psychotic illness and required restraints. He does get sleepy at times, though the patient is alert, awake, trying to communicate. OBJECTIVE: VITAL SIGNS: Temperature 97.2, pulse 93, respiratory rate is 18, and blood pressure is 140/90. HEENT: No facial asymmetry. NECK: Supple, no JVD. HEART: Regular. CHEST AND LUNGS: Equal in expansion with mild expiratory wheezing. ABDOMEN: Soft. No guarding, no rigidity. Liver, spleen palpable. No palpable mass. EXTREMITIES: No edema. AVAILABLE DIAGNOSTIC DATA: White count of 10.7, hemoglobin 10.8, and platelet count of 389. Potassium of 3.4, sodium 140, BUN and creatinine 8 and 0.6, and glucose is 138. Ammonia of 44. The patient did have a chest x-ray performed on 05/14/2018, remarkable for no acute pulmonary process. Cardiomegaly was noted. CLINICAL IMPRESSION: 1. Status post respiratory failure. 2. Most likely aspiration, has significantly improved. 3. Psychotic disorder. 4. Obstructive sleep apnea. 5. Diabetes mellitus. 6. Hypothyroidism. 7. Degenerative joint disease. PLAN: 1. Continue to provide oxygen. 2. Nebulizer treatment. 3. Antibiotic as per Infectious Disease. 4. Synthroid. 5. Diabetes management. 6. Nutritional support. 7. Dysphagia treatment. 8. Psych medication. 9. Discharge planning to [facility] based on the patient's behavior and off restrain. Care plan reviewed and discussed. JOB# [id number]
[2018-05-15] MEDS: D5-0.45NS 1,000 ML IV SCH (17:22)
[2018-05-16 05:38] LABS: ANION GAP 11.3 (7.0-16.0); BUN - UREA NITROGEN 10 mg/dL (7-25); CALCIUM SERUM 9.5 mg/dL (8.6-10.3); CARBON DIOXIDE 31.5 mEq/L (21.0-31.0); CHLORIDE 102 mEq/L (98-107); CREATININE - SERUM 0.6 mg/dL (0.7-1.3); GFR AFRICAN-AMERICAN > 60.0 ml/min (>90); GFR NON AFRICAN-AMERICAN > 60.0 ml/min; GLUCOSE 124 mg/dL (70-105); SODIUM SERUM 142 mEq/L (136-145)
[2018-05-16 05:51] LABS: POTASSIUM SERUM 2.8 mEq/L (3.5-5.1)
[2018-05-16] MEDS ORDERED: Potassium Chloride 20 mEq ER Tab PO ONE (06:35)
[2018-05-16] MEDS: Budesonide 0.5 Mg/2 mL Ud HHN SCH (06:46)
[2018-05-16] MEDS: INSULIN ASPART SLIDING SCALE 100 UNITS/ML UNIT SUBQ SCH ×4 (06:46→20:43)
[2018-05-16] MEDS: Albuterol/Ipratropium Neb 3 ML AERS HHN SCH ×4 (06:46→18:59)
--- NOTE | 2018-05-16 06:54 | Progress Notes ---
DATE: 05/15/2018 SUBJECTIVE: A 62-year-old male who remains confused, disoriented, talking nonsense, still in restraints, impulsive, but he is significantly calmer, less yelling episodes, less screaming episodes, no longer calling out as often for "mom, mom" or "dad, dad." The patient needing assist with the feeding, needing a higher level of ADLs and attention. Medications were noted. ASSESSMENT: The patient significantly calmer, less yelling episodes remains confused and disoriented. No evidence of dangerousness in regards to any combative behaviors. PLAN: We will continue to monitor. The patient does seem to be showing signs of improvements. JOB# [id number]
[2018-05-16] MEDS: POLYETHYLENE GLYCOL 3350 17 GM PACK PO SCH ×2 (09:02→16:54)
[2018-05-16] MEDS: Insulin Detemir 100 units/mL 10mL Vial SUBQ SCH (09:02)
[2018-05-16] MEDS: Lactobacillus Rhamnosus GG 15 Billion CFU CAP.SPRINK PO SCH (09:02)
--- NOTE | 2018-05-16 14:33 | Progress Notes ---
DATE: 05/16/2018 PULMONARY PROGRESS NOTE PROBLEM LIST: 1. Respiratory failure. 2. Sleep apnea syndrome. 3. Underlying history of psychosis. The patient is sleepy, arousable, no respiratory distress, etc. He has poor oral intake. PHYSICAL EXAMINATION: VITAL SIGNS: T-max 97.5, blood pressure 125/83, saturation 100% on 2 liters. NECK: Veins not visualized. CHEST: Shows diminished air entry with occasional rhonchi. HEART: Regular. ABDOMEN: Soft, nontender. LABORATORY DATA: The patient's electrolytes, potassium is 2.8. Sugar is 124. IMPRESSION: The patient clinically and my perspective has not changed much. PLAN: As they have discussed with Dr. Salomon, will write a BiPAP setting as requested and go from there. JOB# [id number]
[2018-05-16] MEDS: Levofloxacin 500mg/100mL 500 MG/100 ML BAG IV SCH (22:55)
--- NOTE | 2018-05-17 00:18 | Infectious Disease Prog Note ---
Infectious Disease Subjective - Review of Systems Service Date: 05/16/18 Subjective: No new change, no fever, Infectious Disease Objective - Results Result Diagrams: 05/15/18 05:10 05/16/18 05:05 Recent Labs: Laboratory Last Values WBC 10.7 Th/cmm (4.8-10.8) 05/15/18 05:10 RBC 3.55 Mil/cmm (4.30-5.70) L 05/15/18 05:10 Hgb 10.8 gm/dL (12-16) L 05/15/18 05:10 Hct 32.4 % (41.0-60) L 05/15/18 05:10 MCV 91.2 fl (80-99) 05/15/18 05:10 MCH 30.4 pg (26.0-30.0) H 05/15/18 05:10 MCHC Differential 33.4 pg (28.0-36.0) 05/15/18 05:10 RDW 14.8 % (11.5-20.0) 05/15/18 05:10 Plt Count 389 Th/cmm (150-400) 05/15/18 05:10 MPV 7.3 fl 05/15/18 05:10 Add Manual Diff YES 05/08/18 06:10 Neutrophils % 70.1 % (40.0-80.0) 05/15/18 05:10 Band Neutrophils % 3 % (0-10) 05/08/18 06:10 Lymphocytes % 18.6 % (20.0-50.0) L 05/15/18 05:10 Monocytes % 9.4 % (2.0-10.0) 05/15/18 05:10 Eosinophils % 1.6 % (0.0-5.0) 05/15/18 05:10 Basophils % 0.3 % (0.0-2.0) 05/15/18 05:10 Neutrophils (Manual) 81 % (40-80) H 05/08/18 06:10 Lymphocytes 10 % (20-50) L 05/08/18 06:10 Monocytes 6 % (2-10) 05/08/18 06:10 Eosinophils 0 % (0-5) 05/08/18 06:10 Basophils 0 % (0-3) 05/08/18 06:10 Platelet Estimate ADEQUATE (NORMAL) 05/07/18 22:10 PT 11.7 SECONDS (9.5-11.5) H 05/09/18 04:30 INR 1.14 (0.5-1.4) 05/09/18 04:30 PTT (Actin FS) 31.9 SECONDS (26.0-38.0) 05/09/18 04:30 Specimen Source Arterial 05/10/18 09:35 Sample Site Right Radial 05/10/18 09:35 pH 7.48 (7.35-7.45) H 05/10/18 09:35 pCO2 40.0 mmHg (35.0-45.0) 05/10/18 09:35 pO2 57.0 mmHg (80.0-100.0) L 05/10/18 09:35 HCO3 29.3 mEq/L (20.0-26.0) H 05/10/18 09:35 Base Excess 5.8 mEq/L (-3.0-3.0) H 05/10/18 09:35 O2 Saturation 91.0 % (92.0-100.0) L 05/10/18 09:35 Abilio Test YES 05/10/18 09:35 Vent Rate NA 05/10/18 09:35 Inspired O2 21 05/10/18 09:35 Tidal Volume NA 05/10/18 09:35 PEEP NA 05/10/18 09:35 Pressure (ins/psv/peep) NA 05/10/18 09:35 Critical Value E.SOLIS 05/10/18 09:35 Sodium 142 mEq/L (136-145) 05/16/18 05:05 Potassium 2.8 mEq/L (3.5-5.1) L* 05/16/18 05:05 Chloride 102 mEq/L (98-107) 05/16/18 05:05 Carbon Dioxide 31.5 mEq/L (21.0-31.0) H 05/16/18 05:05 Anion Gap 11.3 (7.0-16.0) 05/16/18 05:05 BUN 10 mg/dL (7-25) 05/16/18 05:05 Creatinine 0.6 mg/dL (0.7-1.3) L 05/16/18 05:05 Est GFR ( Amer) > 60.0 ml/min (>90) 05/16/18 05:05 Est GFR (Non-Af Amer) > 60.0 ml/min 05/16/18 05:05 BUN/Creatinine Ratio 16.7 05/16/18 05:05 Glucose 124 mg/dL (70-105) H 05/16/18 05:05 POC Glucose 125 MG/DL (70 - 105) H 05/16/18 20:42 Whole Bld Lactic Acid 0.99 mmol/L (0.60-1.99) 05/07/18 22:10 Calcium 9.5 mg/dL (8.6-10.3) 05/16/18 05:05 Magnesium 1.8 mg/dL (1.9-2.7) L 05/09/18 04:30 Total Bilirubin 0.3 mg/dL (0.3-1.0) 05/11/18 06:06 AST 14 U/L (13-39) 05/11/18 06:06 ALT 20 U/L (7-52) 05/11/18 06:06 Alkaline Phosphatase 71 U/L (34-104) 05/11/18 06:06 Ammonia 44 umol/L (16-53) 05/15/18 05:10 Total Protein 6.5 gm/dL (6.0-8.3) 05/11/18 06:06 Albumin 3.2 gm/dL (4.2-5.5) L 05/11/18 06:06 Globulin 3.3 gm/dL 05/11/18 06:06 Albumin/Globulin Ratio 1.0 (1.0-1.8) 05/11/18 06:06 Free T3 1.2 pg/mL (2.0-4.4) L 05/09/18 04:30 TSH 9.60 uIU/ml (0.34-5.60) H 05/09/18 04:30 Urine Source CLEAN C 05/09/18 05:35 Urine Color YELLOW 05/09/18 05:35 Urine Clarity CLEAR (CLEAR) 05/09/18 05:35 Urine pH 7.0 (4.6 - 8.0) 05/09/18 05:35 Ur Specific [place] 1.025 (1.005-1.030) 05/09/18 05:35 Urine Protein NEGATIVE mg/dL (NEGATIVE) 05/09/18 05:35 Urine Glucose (UA) NEGATIVE mg/dL (NEGATIVE) 05/09/18 05:35 Urine Ketones TRACE mg/dL (NEGATIVE) 05/09/18 05:35 Urine Blood NEGATIVE (NEGATIVE) 05/09/18 05:35 Urine Nitrate NEGATIVE (NEGATIVE) 05/09/18 05:35 Urine Bilirubin NEGATIVE (NEGATIVE) 05/09/18 05:35 Urine Urobilinogen 4.0 E.U./dL (0.2 - 1.0) H 05/09/18 05:35 Ur Leukocyte Esterase NEGATIVE (NEGATIVE) 05/09/18 05:35 Urine RBC 0-2 /hpf (0-5) H 05/09/18 05:35 Urine WBC 0-2 /hpf (0-5) 05/09/18 05:35 Ur Epithelial Cells FEW /lpf (FEW) 05/09/18 05:35 Urine Bacteria NONE SEEN /hpf (NONE SEEN) 05/09/18 05:35 Vancomycin Trough 16.2 ug/mL (5-10) H 05/13/18 09:05 Valproic Acid < 10.0 ug/mL (50.0-100.0) L 05/12/18 08:45 Influenza A (Rapid) NEG FOR INF A 05/08/18 01:00 Influenza B (Rapid) NEG FOR INF B 05/08/18 01:00 - Physical Exam Vitals and I&O: Vital Signs Temp 98.5 F 05/17/18 00:00 Pulse 69 05/17/18 00:00 Resp 19 05/17/18 00:00 BP 129/84 05/17/18 00:00 Pulse Ox 100 05/16/18 20:00 Intake & Output 05/16/18 05/16/18 05/17/18 06:59 18:59 06:59 Intake Total 100 480 Balance 100 480 Weight (lbs) 103.873 kg 103.873 kg Intake: Intake, IV Amount 100 Levofloxacin 500mg/100mL 100 500 mg In 100 ml @ 100 mls/hr IV Q24HR [facility] Rx#: [id number] Oral 480 Other: # Voids 2 # Bowel Movements 2 Weight Source Bedscale Bedscale Active Medications: Current Medications Acetaminophen (Tylenol) 650 mg PO Q4HR PRN PRN Reason: Pain Or Fever above 101 Stop: 07/06/18 21:39 Last Admin: 05/16/18 13:26 Dose: 650 mg Acetaminophen (Tylenol 650mg Supp) 650 mg RC Q6H PRN PRN Reason: fever > 100.4 Stop: 07/06/18 23:24 Last Admin: 05/08/18 00:15 Dose: 650 mg Albuterol/Ipratropium (Duoneb Neb) 3 ml HHN Q2HRT PRN PRN Reason: Wheezing Stop: 07/06/18 22:10 Albuterol/Ipratropium (Duoneb Neb) 3 ml HHN [id number] [facility] Stop: 07/07/18 18:59 Last Admin: 05/16/18 18:59 Dose: 3 ml Budesonide (Pulmicort) 0.5 mg HHN DAILYRT [facility] Stop: 07/08/18 06:59 Last Admin: 05/16/18 06:46 Dose: 0.5 mg Clonazepam (Klonopin) 1 mg PO BID [facility]; Protocol Stop: 07/09/18 12:29 Last Admin: 05/16/18 16:55 Dose: 1 mg Divalproex Sodium (Depakote Dr) 500 mg PO BID [facility]; Protocol Stop: 07/07/18 08:59 Last Admin: 05/16/18 16:55 Dose: 500 mg Haloperidol Lactate (Haldol) 5 mg IM Q6H PRN PRN Reason: Agitation Stop: 07/07/18 10:29 Last Admin: 05/13/18 21:13 Dose: 5 mg Hydrocortisone (Cortef) 10 mg PO BID [facility] Stop: 07/07/18 08:59 Last Admin: 05/16/18 16:54 Dose: 10 mg Dextrose/Sodium Chloride (D5-0.45ns) 1,000 mls @ 75 mls/hr IV .[id number] [facility] Stop: 07/07/18 14:14 Last Admin: 05/15/18 17:22 Dose: 75 mls/hr Levofloxacin (Levaquin Pb) 500 mg in 100 mls @ 100 mls/hr IV Q24HR [facility] Stop: 07/13/18 22:59 Last Admin: 05/16/18 22:55 Dose: 100 mls/hr Insulin Aspart (Novolog Insulin Sliding Scale) 0 units SUBQ ACHS [facility]; Protocol Stop: 07/07/18 07:29 Last Admin: 05/16/18 20:43 Dose: Not Given Insulin Detemir (Levemir Insulin) 12 units SUBQ DAILY [facility]; Protocol Stop: 07/07/18 08:59 Last Admin: 05/16/18 09:02 Dose: 12 units Lactobacillus Rhamnosus (Culturelle 15b) 1 each PO DAILY [facility] Stop: 07/07/18 13:59 Last Admin: 05/16/18 09:02 Dose: 1 each Levothyroxine Sodium 0.075 mg/ (Levothyroxine Sodium 0.1 mg) 0.175 mg PO QDAC [facility] Stop: 07/07/18 07:29 Last Admin: 05/16/18 06:53 Dose: 0.175 mg Miscellaneous (Vte Chemical Prophylaxis Screen/ Admission) 1 ea PRN PRN PRN Reason: PROTOCOL Stop: 07/07/18 09:07 Miscellaneous (Probiotic Screen) 1 [facility] PRN PRN PRN Reason: PROTOCOL Stop: 07/07/18 12:10 Ondansetron HCl (Zofran) 4 mg IV Q6H PRN PRN Reason: Nausea / Vomiting Stop: 07/06/18 23:30 Polyethylene Glycol (Miralax) 17 gm PO BID [facility] Stop: 07/09/18 16:59 Last Admin: 05/16/18 16:54 Dose: 17 gm Quetiapine Fumarate (Seroquel) 25 mg PO BID [facility]; Protocol Stop: 07/11/18 16:59 Last Admin: 05/16/18 16:55 Dose: 25 mg General: no acute distress, well developed, well nourished HEENT: atraumatic, normocephalic, PERRLA Neck: supple, no thyromegaly Cardiovascular: S1S2, regular Lungs: clear to auscultation bilaterally, clear to percussion Abdomen: soft, no tender, no distended Extremities: other, no cyanosis, no clubbing, no edema Neurological: awake, alert, oriented Skin: intact Infectious Disease Assmt/Plan - Assessment Assessment: 1. pneumonia. 2. COPD. 3. Psychosis. - Plan Plan: Continue levaqquin. Nutritional Asmnt/Malnutr-PDOC - Dietary Evaluation Malnutrition Findings (Please click <Entered> for more info): Nutritional Asmnt/Malnutrition Start: 05/08/18 15: 33 Text: Status: Complete Freq: Protocol: Document 05/08/18 15:33 LCHENG (Rec: 05/08/18 15:50 [email or web address] [id number]) Nutritional Asmnt/Malnutrition Patient General Information Nutritional Screening High Risk Consult Diagnosis brochitis, possible PNA Pertinent Medical Hx/Surgical Hx no H&P as of 05/08 3:30pm Subjective Information Pt seen lying in bed receiving breathing treatment at time of visit. Per RN, pt kept on NPO status. Consult received for left foot wound. Current Diet Order/ Nutrition Support NPO Pertinent Medications D5-0.45ns, novolog, levmir, culturelle, levothyroxine, vancomycin Pertinent Labs 05/08 Cr 0.6, glucose 150, POC 123-144 05/07 Glucose 197 Nutritional Hx/Data Height 1.7 m Height (Calculated Centimeters) 170.2 Current Weight (lbs) 83.915 kg Weight (Calculated Kilograms) 83.9 Weight (Calculated Grams) 62683.6 [place] Body Weight 148 Body Mass Index (BMI) 29.0 Weight Status Overweight GI Symptoms Last BM none noted Skin Integrity/Comment: per RN note 05/08: open wound on left foot, and skin irritation with open skin in inner buttocks Current %PO Negligible < 25% Estimated Nutritional Goals BEE in Kcals: Using Current wt Calories/Kcals/Kg 23-27 Kcals Calculated 4970-1918 Protein: Using Current wt Protein g/k Protein Calculated 84 Fluid: ml 1932-2268ml (1ml/kcal) Nutritional Problem 1. Problem Problem inadequate energy intake Etiology increased nutrition needs d/t wound Signs/Symptoms: PO on NPO status Intervention/Recommendation Comments 1. Monitor NPO status. Recommend swallow eval before initiating oral diet. Recommend CCHO diet with texture per ST, add Jalen BID for wound healing. 2. Monitor wt, labs and skin integrity 3. F/U as high risk in 2 days. Expected Outcomes/Goals Expected Outcomes/Goals 1. PO intake to meet at least 75% of nutritional needs. 2. Wt stability, skin to heal, labs to approach WNL.
--- NOTE | 2018-05-17 05:32 | Progress Notes ---
DATE: 05/16/2018 IDENTIFICATION: A 62-year-old male. SUBJECTIVE: The patient is seen and examined. The patient is more alert and awake. The patient is a little more cooperative, discussed with the geriatric case manager about the discharge planning. The patient has a poor p.o. intake. PHYSICAL EXAMINATION: VITAL SIGNS: Temperature 97.5, pulse is 86, respiratory rate is 20, blood pressure 125/83. HEENT: No facial asymmetry. NECK: Supple, no JVD. HEART: Regular. CHEST: Lung equal in expansion with mild expiratory wheezing. ABDOMEN: Soft. EXTREMITIES: No edema. NEUROLOGIC: Alert, awake, follows command. AVAILABLE DIAGNOSTIC DATA: Potassium of 2.8. BUN and creatinine is 10 and 0.6. MEDICATIONS: Medication administration record has been reviewed. CLINICAL IMPRESSION: 1. Hypokalemia. 2. Status post aspiration. 3. Diabetes. 4. Obstructive sleep apnea. 5. Degenerative joint disease. 6. Status post back surgery. 7. Hypothyroidism. 8. Psychotic disorder. 9. Debility 10. Decline in self-care and mobility. PLAN: 1. Replace potassium. 2. Discharge planning to [facility]. 3. Follow up lab. 4. Nutritional support. 5. Discharge restrain. 6. Care plan reviewed and discussed with staff. JOB# [id number]
[2018-05-17 05:42] LABS: % BASOPHILS 0.5 % (0.0-2.0); % LYMPHOCYTES 24.6 % (20.0-50.0); % MONOCYTES 7.8 % (2.0-10.0); % NEUTROPHILS 64.1 % (40.0-80.0); EOSINOPHILE ABSOLUTE 0.2 Th/cmm (0.1-0.4); HEMATOCRIT 32.2 % (41.0-60); HEMOGLOBIN 10.6 gm/dL (12-16); LYMPHOCYTE ABSOLUTE 1.4 Th/cmm (1.5-3.0); MEAN CELL VOLUME 91.3 fl (80-99); MEAN CORPUSCULAR HEMOGLOBIN 30.1 pg (26.0-30.0); MEAN PLATELET VOLUME 6.5 fl; MONOCYTE ABSOLUTE 0.5 Th/cmm (0.3-1.0); NEUTROPHILE ABSOLUTE 3.7 Th/cmm (1.8-8.0); PLATELET COUNT 387 Th/cmm (150-400); RED BLOOD COUNT 3.53 Mil/cmm (4.30-5.70); WHITE BLOOD COUNT 5.8 Th/cmm (4.8-10.8)
[2018-05-17 06:03] LABS: ALKALINE PHOSPHATASE 78 U/L (34-104); BILIRUBIN,TOTAL 0.4 mg/dL (0.3-1.0); BUN - UREA NITROGEN 10 mg/dL (7-25); CALCIUM SERUM 9.2 mg/dL (8.6-10.3); CARBON DIOXIDE 31.1 mEq/L (21.0-31.0); CHLORIDE 104 mEq/L (98-107); CREATININE - SERUM 0.5 mg/dL (0.7-1.3); GFR AFRICAN-AMERICAN > 60.0 ml/min (>90); GFR NON AFRICAN-AMERICAN > 60.0 ml/min; GLUCOSE 109 mg/dL (70-105); POTASSIUM SERUM 3.1 mEq/L (3.5-5.1); SGOT 38 U/L (13-39); SGPT/ALT 53 U/L (7-52); SODIUM SERUM 142 mEq/L (136-145)
[2018-05-17] MEDS: INSULIN ASPART SLIDING SCALE 100 UNITS/ML UNIT SUBQ SCH ×3 (06:44→17:36)
[2018-05-17] MEDS: Budesonide 0.5 Mg/2 mL Ud HHN SCH (07:06)
[2018-05-17] MEDS: Albuterol/Ipratropium Neb 3 ML AERS HHN SCH ×3 (07:06→14:10)
--- NOTE | 2018-05-17 07:39 | Progress Notes ---
DATE: 05/16/2018 SUBJECTIVE: The patient remains sleepy, tired, still with some yelling episodes. He is significantly calmer, more cooperative, still remains confused and disoriented. The patient's family is agreeable for him to go to fpc at [facility]. Still with some shouting but less. Seems to be approaching his baseline. No agitation. MENTAL STATUS EXAMINATION: Confused. No SI, no HI, no psychotic symptoms. Very confused, disoriented. PLAN: We will continue to monitor. Continue dosing of medications. The patient is significantly calmer. JOB# [id number]
[2018-05-17] MEDS: Lactobacillus Rhamnosus GG 15 Billion CFU CAP.SPRINK PO SCH (09:00)
[2018-05-17] MEDS: POLYETHYLENE GLYCOL 3350 17 GM PACK PO SCH ×2 (09:00→17:47)
[2018-05-17] MEDS: Insulin Detemir 100 units/mL 10mL Vial SUBQ SCH (09:13)
[2018-05-17] MEDS: Haloperidol Lactate 5 mg/mL 1mL Vial IM PRN (09:59)
[2018-05-17] MEDS ORDERED: Hydrocodone/APAP 10 mg/325 mg Tab PO PRN (10:05)
[2018-05-17] MEDS ORDERED: Potassium Chloride 20 mEq ER Tab PO ONE ×2 (10:06→17:57)
--- NOTE | 2018-05-17 18:57 | Discharge Summary ---
DATE OF DISCHARGE: 05/17/2018 PRINCIPAL DIAGNOSES: 1. Acute on chronic respiratory failure. 2. Most likely aspiration and healthcare-acquired pneumonia. 3. Diabetes mellitus. 4. Dysphagia. 5. Hypothyroidism. 6. Psychotic disorder. 7. Degenerative joint disease. 8. Status post T10-T11 laminectomy. 9. Chronic pain syndrome. 10. Coronary artery disease. 11. Decline in self-care and mobility. BRIEF STATEMENT FOR THE REASON FOR ADMISSION: A 62-year-old patient's of mine, [facility] where the patient was noted to have increasing chest congestion with high grade fever. The patient was transferred to medical floor for further evaluation and treatment. Please refer to Dr. Nancy Craven and Sarath for further information. HOSPITAL COURSE: The patient was admitted to medical floor where the patient was started on IV vancomycin with meropenem. Infectious Disease and Pulmonary consultation was requested. NG tube feeding was started since the patient had trouble swallowing. Once the patient was started improving, the patient had NG tube was discontinued as well. The patient was followed by the database reporting consultant. Psych was also following the patient. The patient did have a waxing and waning course, which delayed the hospitalization. During my absence, Dr. Cruz was covering until I took over the care on 05/15/2018. The patient was noted to have hypokalemia, which was replaced as well. I did have a discussion with home theater expert as well as the psychiatrist about the future treatment plan and the disposition. It was recommended that the patient does not need any more restrained and the patient should be treated for his underlying chronic illnesses and the patient can be discharged to lower level of care. The patient was accepted to [facility]. The patient is discharged to [facility] where the patient will be followed by myself and my nurse practitioner. At the time of discharge, all of his medications were reconciled. JOB# [id number]
--- NOTE | 2018-05-17 20:21 | Progress Notes ---
DATE: 05/17/2018 SUBJECTIVE: A 62-year-old male who remains confused, disoriented, much less screaming episodes, out of restraints for the past approximately 24 hours. No aggressive behaviors, no agitation, significantly calmer. MENTAL STATUS EXAMINATION: No SI, no HI, no overt psychotic symptoms. PLAN: No acute psychiatric interventions. JOB# [id number]
--- NOTE | 2018-05-17 22:49 | Progress Notes ---
DATE: IDENTIFICATION: A 62-year-old male. SUBJECTIVE: The patient seen and examined. The patient is agitated at times. The patient is more alert. Otherwise, recognized me fairly well. The patient's blood sugars are under acceptable range. The patient denies any chest pain, no shortness of breath. PHYSICAL EXAMINATION: VITAL SIGNS: Temperature 98, pulse is 78, respiratory rate 18, and blood pressure 103/53. HEENT: No facial asymmetry. NECK: Supple, no JVD. HEART: Regular. CHEST: Lung equal in expansion, no expiratory wheezing. ABDOMEN: Soft. No guarding, no rigidity. Liver, spleen palpable. No palpable mass. EXTREMITIES: No edema. AVAILABLE LABORATORY DATA AND DIAGNOSTIC DATA: Potassium of 3.1, BUN and creatinine is 10 and 0.5. Hemoglobin 10.6 and platelet of 387. MEDICATION: Admission record has been reviewed. CLINICAL IMPRESSION: 1. Hypokalemia, improving. 2. Status post aspiration. 3. Obstructive sleep apnea. 4. Diabetes. 5. Hypothyroidism. 6. Status post T10-T11 laminectomy. 7. Psychotic disorder. 8. Degenerative joint disease. 9. Debility. 10. Hypothyroidism. PLAN: 1. Replace potassium. 2. Pain management. 3. Discharge this patient to correction. 4. Continue other medication as prescribed. 5. Follow lab. 6. Care plan reviewed and discussed. JOB# [id number]
== END 2018-05-17 18:24 | DRG 177 ==
LOC: MSI 21:10 → TELE 21:36 → MSI 05-14 17:02
PROVIDERS: ADMIT Internal Medicine; ATTEND Internal Medicine
PROC: 5A09357 Assistance with Respiratory Ventilation, Less than 24 Consecutive Hours, Continuous Positive Airway Pressure (ICD-10-PCS; 2018-05-09)
PROC: 5A09357 Assistance with Respiratory Ventilation, Less than 24 Consecutive Hours, Continuous Positive Airway Pressure (ICD-10-PCS; principal; 2018-05-10)
PROC: 5A09357 Assistance with Respiratory Ventilation, Less than 24 Consecutive Hours, Continuous Positive Airway Pressure (ICD-10-PCS; 2018-05-11)
PROC: 5A09357 Assistance with Respiratory Ventilation, Less than 24 Consecutive Hours, Continuous Positive Airway Pressure (ICD-10-PCS; 2018-05-12)
PROC: 5A09357 Assistance with Respiratory Ventilation, Less than 24 Consecutive Hours, Continuous Positive Airway Pressure (ICD-10-PCS; 2018-05-14)
PROC: 5A09357 Assistance with Respiratory Ventilation, Less than 24 Consecutive Hours, Continuous Positive Airway Pressure (ICD-10-PCS; 2018-05-15)
DX: J69.0 Pneumonitis due to inhalation of food and vomit (principal); J96.20 Acute and chronic respiratory failure, unspecified whether with hypoxia or hypercapnia; E11.9 Type 2 diabetes mellitus without complications; F03.90 Unspecified dementia, unspecified severity, without behavioral disturbance, psychotic disturbance, mood disturbance, and anxiety; R13.10 Dysphagia, unspecified; M54.5 Low back pain; E03.9 Hypothyroidism, unspecified; G40.909 Epilepsy, unspecified, not intractable, without status epilepticus; F29 Unspecified psychosis not due to a substance or known physiological condition; G47.33 Obstructive sleep apnea (adult) (pediatric); M19.90 Unspecified osteoarthritis, unspecified site; E87.6 Hypokalemia; G89.4 Chronic pain syndrome; I25.10 Atherosclerotic heart disease of native coronary artery without angina pectoris; Z88.0 Allergy status to penicillin; Z88.5 Allergy status to narcotic agent
CPT/HCPCS: 36415-UA; 36600-90; 71045-TC; 71250-TC; 80048-TC; 80053-TC; 80164-TC; 80202-TC; 81001-TC; 82140-TC; 82803-TC; 82948-90; 83036-90; 83605; 83735-TC; 84443-TC; 84479-90; 85007-TC; 85025-TC; 85610-TC; 85730-TC; 87070; 87086-90; 87804-TC; 93005; 94640; 94660; 94760; J1630; J1644; J1815; J1885; J1956; J2185; J2405; J3370; J3480; J7030; J7040; Z7610